=== PATIENT | female | born 1985 | race Caucasian/White ===

== ENCOUNTER 2016-12-26 10:48 | Emergency (ER) | payer MEDICAID ==
[2016-12-26 11:02] VITALS: BP 119/72
[2016-12-26] MEDS ORDERED: Acetaminophen/HYDROcodone 325-5 MG Tab PO ONE (11:43)
--- NOTE | 2016-12-26 11:43 | EDM.PDOC ---
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 Schilea states that last night and today the pain became much more severe despite use of ibuprofen and clonazepam. Onset: Today Onset Date: 12/26/16 Onset Time: 06:00 Duration: Hour(s): Location: Reports: Abdomen Quality: Reports: Ache, Throbbing Severity: Moderate Improves with: Reports: None Worsens with: Reports: None Lower Abdominal Pain Score (Numeric/FACES): 8 - Related Data Allergies Allergy/AdvReac Type Severity Reaction Status Date / Time tramadol Allergy Severe Seizure Verified 08/27/16 07:46 Home Meds: Home Meds Ibuprofen 800 mg PO ASDIRECTED PRN 08/22/16 [History] ClonazePAM [KlonoPIN] 0.5 mg PO BID PRN 12/26/16 [History] buPROPion [Wellbutrin] 75 mg PO TID 12/26/16 [History] Past Medical History - Past Health History Medical/Surgical History: Denies Medical/Surgical History Gastrointestinal History: Reports: GERD Genitourinary History: Reports: UTI, Recurrent 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: , Spontaneous Musculoskeletal History: Reports: Fracture Other Musculoskeletal History: Toe finger Neurological History: Reports: Seizure Psychiatric History: Reports: Anxiety, Depression, Other (See Below) 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 - Infectious Disease History Infectious Disease History: Reports: Chicken Pox - Past Surgical History GI Surgical History: Reports: Cholecystectomy, Matthew Fundoplication Neurological Surgical History: Reports: None Musculoskeletal Surgical History: Reports: None Dermatological Surgical History: Reports: None Social & Family History - Tobacco Use Smoking Status *Q: Light Tobacco Smoker Years of Tobacco use: 11 Packs/Tins Daily: 0.2 Used Tobacco, but Quit: No Second Hand Smoke Exposure: No - Caffeine Use Caffeine Use: Reports: Coffee - Alcohol Use Days Per Week of Alcohol Use: 2 Number of Drinks Per Day: 1 Total Drinks Per Week: 2 - Recreational Drug Use Recreational Drug Use: No Drug Use in Last 12 Months: No Recreational Drug Type: Reports: Benzodiazepines Recreational Drug Use Frequency: Not Used In Over 1 Year ED ROS GENERAL - Review of Systems Review Of Systems: See Below Constitutional: Denies: Fever, Chills, Malaise, Fatigue, Night Sweats HEENT: Reports: No Symptoms Respiratory: Denies: Shortness of Breath, Wheezing, Cough Cardiovascular: Denies: Chest Pain, Blood Pressure Problem, Dyspnea on Exertion , Edema, Palpitations, PND, Syncope Endocrine: Reports: No Symptoms GI/Abdominal: Reports: Abdominal Pain, Other (She complains of low pelvic pain with radiation to pubis and right and left lower quadrants to sacrum. ). Denies : Constipation, Diarrhea, Distension, Hematochezia, Nausea, Vomiting : Reports: Discharge, Irregular Menses. Denies: Dysuria, Flank Pain, Frequency, Hematuria, Incontinence, Urgency, Urinary Retention Musculoskeletal: Denies: Joint Pain, Joint Swelling, Muscle Pain, Muscle Stiffness Skin: Denies: Dryness, Bruising, Pruritis, Rash, Erythema, Wound, Lesions Neurological: Reports: No Symptoms Psychiatric: Reports: Other (History of anxiety with use of clonazepam) Hematologic/Lymphatic: Reports: No Symptoms Immunologic: Reports: No Symptoms ED EXAM, RENAL/ - Physical Exam Exam: See Below Exam Limited By: No Limitations General Appearance: Alert, WD/WN, No Apparent Distress Eye Exam: Bilateral Eye: Normal Inspection, PERRL Ears: Normal External Exam, Normal Canal, Hearing Grossly Normal, Normal TMs Nose: Normal Inspection, Normal Mucosa, No Blood Throat/Mouth: Normal Inspection, Normal Lips, Normal Teeth, Normal Gums, Normal Oropharynx, Normal Voice, No Airway Compromise Head: Atraumatic, Normocephalic Neck: Normal Inspection, Supple, Non-Tender, Full Range of Motion Respiratory/Chest: No Respiratory Distress, Lungs Clear, Normal Breath Sounds, No Accessory Muscle Use, Chest Non-Tender Cardiovascular: Normal Peripheral Pulses, Regular Rate, Rhythm, No Edema, No Gallop, No Murmur, No Rub GI/Abdominal: Normal Bowel Sounds, Soft, No Organomegaly, No Distention, No Mass , Pelvis Stable, Tender, Other (Tenderness noted to pubis). No: Guarding, Rigid , Rebound Back Exam: Normal Inspection, Full Range of Motion. No: CVA Tenderness (R), CVA Tenderness (L) Extremities: Normal Inspection, Normal Range of Motion, Non-Tender, No Pedal Edema, Normal Capillary Refill Neurological: Alert, Oriented, CN II-XII Intact, Normal Cognition, Normal Gait, No Motor/Sensory Deficits Psychiatric: Normal Affect, Normal Mood Skin Exam: Warm, Dry, Intact, Normal Color, No Rash Lymphatic: No Adenopathy Course - Vital Signs Last Recorded V/S: Last Vital Signs Temp 36.8 C 12/26/16 11:05 Pulse 94 12/26/16 11:05 Resp 16 12/26/16 11:05 BP 119/72 12/26/16 11:05 Pulse Ox 97 12/26/16 11:05 - Orders/Labs/Meds Orders: Active Orders 24 hr Category Date Time Status Transvaginal Non OB [US] Stat Exams 12/26/16 11:30 Taken Labs: Laboratory Tests 12/26/16 Range/Units 11:50 Urine Color Yellow Urine Appearance Slightly cloudy Urine pH 5.0 (4.5-8.0) Ur Specific [place] 1.020 (1.008-1.030) Urine Protein Negative (NEGATIVE) mg/dL Urine Glucose (UA) Normal (NEGATIVE) mg/dL Urine Ketones Negative (NEGATIVE) mg/dL Urine Occult Blood Moderate (NEGATIVE) Urine Nitrite Negative (NEGATIVE) Urine Bilirubin Negative (NEGATIVE) Urine Urobilinogen Normal (NORMAL) mg/dL Ur Leukocyte Esterase Negative (NEGATIVE) Urine RBC 10-20 H (0-5) Urine WBC 0-5 (0-5) Ur Epithelial Cells Few Amorphous Sediment Not seen Urine Bacteria Rare Urine Mucus Not seen Wet prep positive for clue cells and WBC, negative for yeast and trich. Meds: Medications Discontinued Medications Generic Name Dose Route Start Last Admin Trade Name Carlos Enrique PRN Reason Stop Dose Admin Hydrocodone Bitart/Acetaminophen 1 tab 12/26/16 11:43 12/26/16 11:48 [place] 325-5 Mg PO 12/26/16 11:44 1 tab ONETIME ONE Administration Patient allergy to tramadol, she refused toradol injection, states, "I doesn't work for me". Prescription history reviewed and [place] monitoring, only fills noted were for clonazepam as directed and tylenol #27 July 2016. - Radiology Interpretation Free Text/Narrative:: US verbal report, no changes since previous ultrasound, no cysts identified, endometrial strip 1.2 cm unchanged. Departure - Departure Time of Disposition: 12:54 Disposition: Home, Self-Care 01 Condition: good Clinical Impression: Bacterial vaginal infection - Discharge Information Referrals: Hoda Barillas CNM [Primary Care Provider] - Forms: ED Department Discharge Additional Instructions: You are suffering from bacterial vaginosis. You can take metronidazole 500mg tablet by mouth twice per day for seven days. Do not drink alcohol while taking this mediation You are also provided fluconazole 150mg tablet, take one tablet on day 3 to 5 of metronidazole use for sings and symptoms of yeast infection. Take second tablet after complete course of metronidazole for signs and symptoms of yeast infection. Follow up with your primary provider for continued pelvic pain/possible endometriosis and pain management. Do not take hydrocodone with clonazepam, you risk serious side effect of respiratory depression and/or overdose. Keep yourself hydrated. - My Orders Last 24 Hours: My Active Orders 12/26/16 11:30 Transvaginal Non OB [US] Stat - Assessment/Plan Last 24 Hours: My Active Orders 12/26/16 11:30 Transvaginal Non OB [US] Stat Assessment:: Bacterial vaginosis, low pelvic pain of unknown origin/possible endometriosis. Further evaluation pending with REPLENISHMENT BUYER. Same sex partner. Plan: Patient suffering from bacterial vaginosis. She can take metronidazole 500mg tablet by mouth twice per day for seven days. Education provided on not drinking alcohol while taking this mediation. She can also provided fluconazole 150mg tablet, take one tablet on day 3 to 5 of metronidazole use for sings and symptoms of yeast infection. Take second tablet after complete course of metronidazole for signs and symptoms of yeast infection. Follow up with primary provider for continued pelvic pain/possible endometriosis and pain management. She was provided education on limiting use of opiate medication for chronic pain. Patient verbalized understanding. She was advised not take hydrocodone with clonazepam, due to risk serious side effect of respiratory depression and/or overdose. Drink plenty of fluids to hydrated.
--- NOTE | 2016-12-27 08:52 | US ---
Pelvic ultrasound The uterus measures 8.7 x 4.3 x 4.8 cm. The endometrial stripe measures 12 mm. The ovaries and adnex al structures are unremarkable. There is symmetric blood flow. There is no free fluid. There is a 9 mm nabothian cyst. Impression: 1. Negative exam.
== END 2016-12-26 13:09 | disposition home or self-care (01) ==
LOC: JP.ED 10:48
DX: N76.0 Acute vaginitis (principal); F41.9 Anxiety disorder, unspecified; F32.9 Major depressive disorder, single episode, unspecified; F17.210 Nicotine dependence, cigarettes, uncomplicated; Z88.8 Allergy status to other drugs, medicaments and biological substances; Z90.49 Acquired absence of other specified parts of digestive tract; Z98.890 Other specified postprocedural states
CPT/HCPCS: 76830; 81001; 87210; 99284; A9270

== ENCOUNTER 2017-01-17 13:41 | Emergency (ER) | payer MEDICAID ==
[2017-01-17 14:07] VITALS: BP 142/90
[2017-01-17] MEDS ORDERED: HYDROmorphone 1 MG/ML Syringe IM ONE (14:47)
--- NOTE | 2017-01-17 14:50 | EDM.PDOC ---
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 Stated Complaint: pain in WOMEN'S AREA Time Seen by Provider: 01/17/17 14:30 Source of Information: Reports: Patient, RN Notes Reviewed History Limitations: Reports: No Limitations - History of Present Illness INITIAL COMMENTS - FREE TEXT/NARRATIVE: 31-year-old female presents emergency department day complaint of pelvic pain, she has a known history of endometriosis usually controls her endometriosis combination ibuprofen and clonazepam however the last couple days has progressively getting worse to the point with ibuprofen is not helping she does have an appointment in 2 days with CHEESE SUPERVISOR to discuss the possibility of hysterectomy, denies any fever, vomiting or chest pain does get short of breath and nauseated with increasing pain Uterine Pain Score (Numeric/FACES): 9 - Related Data Allergies Allergy/AdvReac Type Severity Reaction Status Date / Time tramadol Allergy Severe Seizure Verified 08/27/16 07:46 Home Meds: Home Meds Ibuprofen 800 mg PO ASDIRECTED PRN 08/22/16 [History] ClonazePAM [KlonoPIN] 0.5 mg PO BID PRN 12/26/16 [History] buPROPion [Wellbutrin] 75 mg PO TID 12/26/16 [History] Past Medical History Gastrointestinal History: Reports: GERD Genitourinary History: Reports: UTI, Recurrent 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: , 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 Musculoskeletal History: Reports: Fracture Other Musculoskeletal History: Toe finger Neurological History: Reports: Seizure Psychiatric History: Reports: Anxiety, Depression, Other (See Below) Other Psychiatric History: 2009 bpd - Infectious Disease History Infectious Disease History: Reports: Chicken Pox - Past Surgical History GI Surgical History: Reports: Cholecystectomy, Matthew Fundoplication Neurological Surgical History: Reports: None Musculoskeletal Surgical History: Reports: None Dermatological Surgical History: Reports: None Social & Family History - Tobacco Use Smoking Status *Q: Light Tobacco Smoker Years of Tobacco use: 11 Packs/Tins Daily: 0.2 Used Tobacco, but Quit: No Second Hand Smoke Exposure: No - Caffeine Use Caffeine Use: Reports: Coffee - Alcohol Use Days Per Week of Alcohol Use: 2 Number of Drinks Per Day: 1 Total Drinks Per Week: 2 - Recreational Drug Use Recreational Drug Use: No Drug Use in Last 12 Months: No Recreational Drug Type: Reports: Benzodiazepines Recreational Drug Use Frequency: Not Used In Over 1 Year ED ROS GENERAL - Review of Systems Review Of Systems: See Below Constitutional: Reports: No Symptoms HEENT: Reports: No Symptoms Respiratory: Reports: Shortness of Breath Cardiovascular: Reports: No Symptoms GI/Abdominal: Reports: Nausea. Denies: Vomiting : Reports: Pain (Pelvic area) Musculoskeletal: Reports: No Symptoms ED EXAM, RENAL/ - Physical Exam Exam: See Below Exam Limited By: No Limitations General Appearance: Alert, WD/WN, No Apparent Distress Respiratory/Chest: No Respiratory Distress, Lungs Clear, Normal Breath Sounds, No Accessory Muscle Use Cardiovascular: Regular Rate, Rhythm, No Murmur GI/Abdominal: Soft, No Organomegaly, No Distention, No Abnormal Bruit, No Mass, Pelvis Stable, Tender (Tender suprapubic area and left inguinal canal area) Course - Vital Signs Last Recorded V/S: Last Vital Signs Temp 98.4 F 01/17/17 14:06 Pulse 95 01/17/17 14:06 Resp 14 01/17/17 14:06 BP 142/90 H 01/17/17 14:06 Pulse Ox 98 01/17/17 14:06 - Orders/Labs/Meds Labs: Laboratory Tests 01/17/17 01/17/17 Range/Units 15:05 15:05 Urine Color Yellow Urine Appearance Cloudy Urine pH 5.0 (4.5-8.0) Ur Specific [place] 1.020 (1.008-1.030) Urine Protein Negative (NEGATIVE) mg/dL Urine Glucose (UA) Normal (NEGATIVE) mg/dL Urine Ketones Negative (NEGATIVE) mg/dL Urine Occult Blood Negative (NEGATIVE) Urine Nitrite Negative (NEGATIVE) Urine Bilirubin Negative (NEGATIVE) Urine Urobilinogen Normal (NORMAL) mg/dL Ur Leukocyte Esterase Negative (NEGATIVE) Urine RBC 0-5 (0-5) Urine WBC 0-5 (0-5) Ur Epithelial Cells Rare Amorphous Sediment Not seen Urine Bacteria Many Urine Mucus Not seen Urine HCG, Qual Negative Meds: Medications Discontinued Medications Generic Name Dose Route Start Last Admin Trade Name Freq PRN Reason Stop Dose Admin Hydromorphone HCl 1 mg 01/17/17 14:47 01/17/17 14:54 Dilaudid IM 01/17/17 14:48 1 mg ONETIME ONE Administration Departure - Departure Time of Disposition: 15:22 Disposition: Home, Self-Care 01 Condition: Good Clinical Impression: Pain in pelvis - Discharge Information Forms: ED Department Discharge Additional Instructions: Continue to use ibuprofen as needed for pain control use Percocet for breakthrough pain, please keep your appointment with CHEESE SUPERVISOR on Tuesday, call or return to the emergency department worsening of symptoms - Assessment/Plan Plan: Assessment Acuity = acute on chronic Site and laterality = pelvic pain Etiology = probably related to endometriosis Manifestations = none Location of injury = home Lab values = urinalysis unremarkable, beta-hCG negative Plan She had good relief with the Dilaudid provided in the ED, discharged home with 10 Percocet to use as needed she does have point with CHEESE SUPERVISOR on Tuesday Patient was in agreement with the plan all questions were answered, they were instructed to return to the emergency department or call for worsening symptoms. This note was dictated using [employer] voice recognition software please call with any questions.
== END 2017-01-17 15:45 | disposition home or self-care (01) ==
LOC: JP.ED 13:41
DX: R10.2 Pelvic and perineal pain (principal); F17.210 Nicotine dependence, cigarettes, uncomplicated; K21.9 Gastro-esophageal reflux disease without esophagitis; Z90.49 Acquired absence of other specified parts of digestive tract; Z88.5 Allergy status to narcotic agent
CPT/HCPCS: 81001; 81025; 96372; 99284; J1170

== ENCOUNTER 2017-01-21 16:43 | Emergency (ER) | payer MEDICAID ==
[2017-01-21 17:58] VITALS: BP 149/95
[2017-01-21] MEDS ORDERED: Ketorolac 60 MG/2 ML SDV IM ONE (18:19)
[2017-01-21] MEDS ORDERED: Acetaminophen/oxyCODONE 325-5 MG Tab PO ONE (18:20)
--- NOTE | 2017-01-21 19:22 | EDM.PDOC ---
ED HPI GENERAL MEDICAL PROBLEM - General Chief Complaint: Abdominal Pain Stated Complaint: LOWER ABD PAIN Time Seen by Provider: 01/21/17 19:16 Source of Information: Reports: Patient History Limitations: Reports: No Limitations - History of Present Illness INITIAL COMMENTS - FREE TEXT/NARRATIVE: pt arrived with lower abdomanal pain. She has been having pain and has been followed by obgyn. It is the opinion of Dr Morrissey that she needs a hysterectomy for endometriosis. The pt questions his opinion howerver she stated that we could do this on a Emergency basis if desired. Onset: Gradual Duration: Other (pt lifted her baby and the pain became very severe. ) Location: Reports: Abdomen, Pelvis Quality: Reports: Sharp, Stabbing Associated Symptoms: Reports: No Other Symptoms abdomen Pain Score (Numeric/FACES): 10 - Related Data Allergies Allergy/AdvReac Type Severity Reaction Status Date / Time tramadol Allergy Severe Seizure Verified 01/21/17 18:51 Home Meds: Home Meds Ibuprofen 800 mg PO ASDIRECTED PRN 08/22/16 [History] ClonazePAM [KlonoPIN] 0.5 mg PO BID PRN 12/26/16 [History] buPROPion [Wellbutrin] 75 mg PO BID 12/26/16 [History] Omeprazole 40 mg PO ASDIRECTED PRN 01/21/17 [History] Past Medical History - Past Health History Medical/Surgical History: Denies Medical/Surgical History HEENT History: Reports: None Cardiovascular History: Reports: None Respiratory History: Reports: None Gastrointestinal History: Reports: GERD Genitourinary History: Reports: UTI, Recurrent 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: , 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 Musculoskeletal History: Reports: Fracture Other Musculoskeletal History: Toe finger Neurological History: Reports: Seizure Psychiatric History: Reports: Anxiety, Depression, Other (See Below) 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 Endocrine/Metabolic History: Reports: None Hematologic History: Reports: None Immunologic History: Reports: None Oncologic (Cancer) History: Reports: None Dermatologic History: Reports: None - Infectious Disease History Infectious Disease History: Reports: Chicken Pox - Past Surgical History Head Surgeries/Procedures: Reports: None HEENT Surgical History: Reports: Myringotomy w Tube(s) Respiratory Surgical History: Reports: None GI Surgical History: Reports: Cholecystectomy, Matthew Fundoplication Female Surgical History: Reports: None Endocrine Surgical History: Reports: None Neurological Surgical History: Reports: None Musculoskeletal Surgical History: Reports: None Oncologic Surgical History: Reports: None Dermatological Surgical History: Reports: None Social & Family History - Tobacco Use Smoking Status *Q: Former Smoker Years of Tobacco use: 11 Packs/Tins Daily: 0.2 Used Tobacco, but Quit: Yes Month Tobacco Last Used: November 2016 Second Hand Smoke Exposure: No - Caffeine Use Caffeine Use: Reports: Coffee, Soda, Tea - Alcohol Use Days Per Week of Alcohol Use: 2 Number of Drinks Per Day: 1 Total Drinks Per Week: 2 - Recreational Drug Use Recreational Drug Use: No Drug Use in Last 12 Months: No Recreational Drug Type: Reports: Benzodiazepines Recreational Drug Use Frequency: Not Used In Over 1 Year ED ROS GENERAL - Review of Systems Review Of Systems: See Below Constitutional: Reports: No Symptoms HEENT: Reports: No Symptoms Respiratory: Reports: No Symptoms Cardiovascular: Reports: No Symptoms Endocrine: Reports: No Symptoms GI/Abdominal: Reports: Other ( Pt has sharp stabbing pain on both sides of the pelvis and she states it got worse when she lifted her baby. ) : Reports: No Symptoms ED EXAM, GI/ABD - Physical Exam Exam: See Below Text/Narrative:: Pt is here with severe pain in the pelvic area bilaterally. She states she has been told she has endometrosis . She was advised to have a hysterectomy. Exam Limited By: No Limitations General Appearance: Alert, Anxious, Mild Distress Ears: Normal TMs Nose: Normal Inspection Throat/Mouth: Normal Inspection Head: Atraumatic Neck: Normal Inspection Respiratory/Chest: No Respiratory Distress Cardiovascular: Regular Rate, Rhythm GI/Abdominal: Tenderness (Female) Exam: Deferred, Other (pt has had a through evaluation in the past. ) Rectal (Female) Exam: Deferred Back Exam: Normal Inspection Extremities: Normal Inspection Neurological: Alert, Oriented, Normal Cognition Psychiatric: Tearful Course - Vital Signs Last Recorded V/S: Last Vital Signs Temp 36.3 C 01/21/17 17:57 Pulse 82 01/21/17 17:57 Resp 16 01/21/17 17:57 BP 149/95 H 01/21/17 17:57 Pulse Ox 98 01/21/17 17:57 - Orders/Labs/Meds Orders: Active Orders 24 hr Category Date Time Status CULTURE URINE [RM] Stat Lab 01/21/17 19:15 Uncollected Labs: Laboratory Tests 01/21/17 01/21/17 01/21/17 Range/Units 18:21 18:28 18:28 WBC 10.3 (4.5-11.0) K/uL RBC 4.59 (3.30-5.50) M/uL Hgb 12.8 (12.0-15.0) g/dL Hct 39.2 (36.0-48.0) % MCV 85 (80-98) fL MCH 28 (27-31) pg MCHC 33 (32-36) % Plt Count 333 (150-400) K/uL Neut % (Auto) 56 (36-66) % Lymph % (Auto) 31 (24-44) % Piatt % (Auto) 8 H (2-6) % Eos % (Auto) 4 (2-4) % Baso % (Auto) 2 H (0-1) % Sodium 141 (140-148) mmol/L Potassium 3.9 (3.6-5.2) mmol/L Chloride 103 (100-108) mmol/L Carbon Dioxide 29 (21-32) mmol/L Anion Gap 9.1 (5.0-14.0) mmol/L BUN 17 (7-18) mg/dL Creatinine 0.9 (0.6-1.0) mg/dL Est Cr Clr Drug Dosing 71.63 mL/min Estimated GFR (MDRD) > 60 (>60) Glucose 88 (74-106) mg/dL Calcium 9.0 (8.5-10.1) mg/dL Total Bilirubin 0.1 L (0.2-1.0) mg/dL AST 18 (15-37) U/L ALT 28 (12-78) U/L Alkaline Phosphatase 108 (46-116) U/L C-Reactive Protein 0.32 H (0.0-0.3) mg/dL Total Protein 7.4 (6.4-8.2) g/dL Albumin 3.5 (3.4-5.0) g/dL Globulin 3.9 H (2.3-3.5) g/dL Albumin/Globulin Ratio 0.9 L (1.2-2.2) Urine Color Urine Appearance Urine pH (4.5-8.0) Ur Specific [place] (1.008-1.030) Urine Protein (NEGATIVE) mg/dL Urine Glucose (UA) (NEGATIVE) mg/dL Urine Ketones (NEGATIVE) mg/dL Urine Occult Blood (NEGATIVE) Urine Nitrite (NEGATIVE) Urine Bilirubin (NEGATIVE) Urine Urobilinogen (NORMAL) mg/dL Ur Leukocyte Esterase (NEGATIVE) Urine RBC (0-5) Urine WBC (0-5) Ur Epithelial Cells Amorphous Sediment Urine Bacteria Urine Mucus 01/21/17 Range/Units 18:37 WBC (4.5-11.0) K/uL RBC (3.30-5.50) M/uL Hgb (12.0-15.0) g/dL Hct (36.0-48.0) % MCV (80-98) fL MCH (27-31) pg MCHC (32-36) % Plt Count (150-400) K/uL Neut % (Auto) (36-66) % Lymph % (Auto) (24-44) % Piatt % (Auto) (2-6) % Eos % (Auto) (2-4) % Baso % (Auto) (0-1) % Sodium (140-148) mmol/L Potassium (3.6-5.2) mmol/L Chloride (100-108) mmol/L Carbon Dioxide (21-32) mmol/L Anion Gap (5.0-14.0) mmol/L BUN (7-18) mg/dL Creatinine (0.6-1.0) mg/dL Est Cr Clr Drug Dosing mL/min Estimated GFR (MDRD) (>60) Glucose (74-106) mg/dL Calcium (8.5-10.1) mg/dL Total Bilirubin (0.2-1.0) mg/dL AST (15-37) U/L ALT (12-78) U/L Alkaline Phosphatase (46-116) U/L C-Reactive Protein (0.0-0.3) mg/dL Total Protein (6.4-8.2) g/dL Albumin (3.4-5.0) g/dL Globulin (2.3-3.5) g/dL Albumin/Globulin Ratio (1.2-2.2) Urine Color Yellow Urine Appearance Clear Urine pH 6.0 (4.5-8.0) Ur Specific [place] 1.020 (1.008-1.030) Urine Protein Negative (NEGATIVE) mg/dL Urine Glucose (UA) Normal (NEGATIVE) mg/dL Urine Ketones Negative (NEGATIVE) mg/dL Urine Occult Blood Moderate (NEGATIVE) Urine Nitrite Negative (NEGATIVE) Urine Bilirubin Negative (NEGATIVE) Urine Urobilinogen Normal (NORMAL) mg/dL Ur Leukocyte Esterase Moderate (NEGATIVE) Urine RBC 0-5 (0-5) Urine WBC 5-10 H (0-5) Ur Epithelial Cells Moderate Amorphous Sediment Few Urine Bacteria Moderate Urine Mucus Few Meds: Medications Discontinued Medications Generic Name Dose Route Start Last Admin Trade Name Freq PRN Reason Stop Dose Admin Ketorolac Tromethamine 60 mg 01/21/17 18:19 01/21/17 18:55 Toradol IM 01/21/17 18:20 60 mg ONETIME ONE Administration Oxycodone/Acetaminophen 1 tab 01/21/17 18:20 01/21/17 18:54 Percocet 325-5 Mg PO 01/21/17 18:21 1 tab ONETIME ONE Administration - Re-Assessments/Exams Free Text/Narrative Re-Assessment/Exam: 01/21/17 19:24 pt was found to have normal lab work except her urine could be infected. Departure - Departure Time of Disposition: 19:26 Disposition: Home, Self-Care 01 Condition: Fair Clinical Impression: Endometriosis, UTI (urinary tract infection) - Discharge Information Forms: ED Department Discharge Care Plan Goals: appt with Dr Felicia alexis when he is in [place], cipro 500mg bid for 5 days, norco 5/325 q6h prn for pain-- - My Orders Last 24 Hours: My Active Orders 01/21/17 19:15 CULTURE URINE [RM] Stat - Assessment/Plan Last 24 Hours: My Active Orders 01/21/17 19:15 CULTURE URINE [RM] Stat
== END 2017-01-21 20:15 | disposition home or self-care (01) ==
LOC: JP.ED 16:43
DX: N39.0 Urinary tract infection, site not specified (principal); N80.9 Endometriosis, unspecified; K21.9 Gastro-esophageal reflux disease without esophagitis; F41.9 Anxiety disorder, unspecified; F32.9 Major depressive disorder, single episode, unspecified; Z96.22 Myringotomy tube(s) status; Z90.49 Acquired absence of other specified parts of digestive tract; Z98.890 Other specified postprocedural states; Z87.891 Personal history of nicotine dependence; Z88.5 Allergy status to narcotic agent
CPT/HCPCS: 36415; 80053; 81001; 85025; 86140; 87086; 96372; 99284; A9270; J1885

== ENCOUNTER 2017-03-20 16:39 | Emergency (ER) | payer MEDICAID ==
[2017-03-20 17:15] VITALS: BP 121/74
--- NOTE | 2017-03-20 18:28 | EDM.PDOC ---
ED HPI GENERAL MEDICAL PROBLEM - General Chief Complaint: Abdominal Pain Stated Complaint: HAD HYSTERECTOMY ON 03/10/17 LOTS OF PAIN Time Seen by Provider: 03/20/17 17:30 Source of Information: Reports: Patient History Limitations: Reports: No Limitations - History of Present Illness INITIAL COMMENTS - FREE TEXT/NARRATIVE: This is a 31-year-old female who had a vaginal hysterectomy, laparoscopic assisted 10 days ago who over the last 3 days as developed increasing pain and moderate amount of dark vaginal discharge. No fevers or chills. No nausea or vomiting. Today she was pushing her child's stroller when she felt a tearing sensation in her lower abdomen. She actually looks fairly comfortable. Onset: Gradual (Over the past 3 days, worse today) Location: Reports: Abdomen Severity: Moderate Worsens with: Reports: Other (Worsens with walking), Movement Associated Symptoms: Reports: Other (She has some moderate diarrhea). Denies: Fever/Chills, Nausea/Vomiting Abdomen Pain Score (Numeric/FACES): 9 - Related Data Allergies Allergy/AdvReac Type Severity Reaction Status Date / Time tramadol Allergy Severe Seizure Verified 01/21/17 18:51 Home Meds: Home Meds Ibuprofen 800 mg PO ASDIRECTED PRN 08/22/16 [History] ClonazePAM [KlonoPIN] 0.5 mg PO BID PRN 12/26/16 [History] buPROPion [Wellbutrin] 75 mg PO BID 12/26/16 [History] Omeprazole 40 mg PO ASDIRECTED PRN 01/21/17 [History] Past Medical History - Past Health History Medical/Surgical History: Denies Medical/Surgical History HEENT History: Reports: None Cardiovascular History: Reports: None Respiratory History: Reports: None Gastrointestinal History: Reports: GERD Genitourinary History: Reports: UTI, Recurrent 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: , 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 Musculoskeletal History: Reports: Fracture Other Musculoskeletal History: Toe finger Neurological History: Reports: Seizure Psychiatric History: Reports: Anxiety, Depression, Other (See Below) 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 Endocrine/Metabolic History: Reports: None Hematologic History: Reports: None Immunologic History: Reports: None Oncologic (Cancer) History: Reports: None Dermatologic History: Reports: None - Infectious Disease History Infectious Disease History: Reports: Chicken Pox - Past Surgical History Head Surgeries/Procedures: Reports: None HEENT Surgical History: Reports: Myringotomy w Tube(s) Respiratory Surgical History: Reports: None GI Surgical History: Reports: Cholecystectomy, Matthew Fundoplication Female Surgical History: Reports: None Endocrine Surgical History: Reports: None Neurological Surgical History: Reports: None Musculoskeletal Surgical History: Reports: None Oncologic Surgical History: Reports: None Dermatological Surgical History: Reports: None Social & Family History - Tobacco Use Smoking Status *Q: Former Smoker Years of Tobacco use: 11 Packs/Tins Daily: 0.2 Used Tobacco, but Quit: Yes Month Tobacco Last Used: November 2016 Second Hand Smoke Exposure: No - Caffeine Use Caffeine Use: Reports: Coffee, Soda, Tea - Alcohol Use Days Per Week of Alcohol Use: 2 Number of Drinks Per Day: 1 Total Drinks Per Week: 2 - Recreational Drug Use Recreational Drug Use: No Drug Use in Last 12 Months: No Recreational Drug Type: Reports: Benzodiazepines Recreational Drug Use Frequency: Not Used In Over 1 Year ED ROS GENERAL - Review of Systems Review Of Systems: See Below Constitutional: Denies: Fever, Chills, Malaise HEENT: Reports: No Symptoms Respiratory: Denies: Shortness of Breath Cardiovascular: Denies: Chest Pain GI/Abdominal: Reports: Abdominal Pain, Diarrhea. Denies: Nausea, Vomiting : Reports: No Symptoms Neurological: Reports: No Symptoms ED EXAM, GI/ABD - Physical Exam Exam: See Below Exam Limited By: No Limitations General Appearance: Alert, No Apparent Distress Respiratory/Chest: No Respiratory Distress, Lungs Clear Cardiovascular: Regular Rate, Rhythm GI/Abdominal Exam: Normal Bowel Sounds, Soft, Tender (Tender to palpation across the lower abdomen, mild guarding. Incisions look excellent.) (Female) Exam: Other (Vaginal exam appears normal externally, digital exam has tenderness but no mass. Speculum exam reveals no discharge and no separation of the surgical incisions. No evidence of bleeding) Course - Vital Signs Last Recorded V/S: Last Vital Signs Temp 98.0 F 03/20/17 17:14 Pulse 93 03/20/17 17:14 Resp 16 03/20/17 17:14 BP 121/74 03/20/17 17:14 Pulse Ox 100 03/20/17 17:14 - Orders/Labs/Meds Labs: Laboratory Tests 03/20/17 03/20/17 Range/Units 17:39 17:39 WBC 11.0 (4.5-11.0) K/uL RBC 4.22 (3.30-5.50) M/uL Hgb 11.4 L (12.0-15.0) g/dL Hct 35.9 L (36.0-48.0) % MCV 85 (80-98) fL MCH 27 (27-31) pg MCHC 32 (32-36) % Plt Count 317 (150-400) K/uL Neut % (Auto) 55 (36-66) % Lymph % (Auto) 30 (24-44) % [place] % (Auto) 10 H (2-6) % Eos % (Auto) 3 (2-4) % Baso % (Auto) 2 H (0-1) % Sodium 140 (140-148) mmol/L Potassium 3.7 (3.6-5.2) mmol/L Chloride 106 (100-108) mmol/L Carbon Dioxide 26 (21-32) mmol/L Anion Gap 8.4 (5.0-14.0) mmol/L BUN 17 (7-18) mg/dL Creatinine 1.0 (0.6-1.0) mg/dL Est Cr Clr Drug Dosing 62.74 mL/min Estimated GFR (MDRD) > 60 (>60) Glucose 80 (74-106) mg/dL Calcium 8.8 (8.5-10.1) mg/dL - Re-Assessments/Exams Free Text/Narrative Re-Assessment/Exam: 03/20/17 18:27 CBC and CMP were obtained which were normal. I did discuss her condition with her OB surgeon and she'll be rechecked on Tuesday. She'll return tomorrow if she develops fever or more pain. She'll continue on the pain medication as prescribed. She was given 10 additional Vicodin for pain control until Tuesday. Departure - Departure Time of Disposition: 18:37 Disposition: Home, Self-Care 01 Condition: Good Clinical Impression: Abdominal pain Qualifiers: Abdominal location: lower abdomen, unspecified Qualified Code(s): R10.30 - Lower abdominal pain, unspecified - Discharge Information Instructions: Abdominal Pain, Adult, [id number] Referrals: Hoda Barillas CNM [Primary Care Provider] - Forms: ED Department Discharge Care Plan Goals: Continue pain medication as prescribed. Continue activity as tolerated and return for recheck tomorrow if you develop a fever or more pain or discharge. Otherwise call the clinic to recheck with OB on Tuesday here in [place].
== END 2017-03-20 18:40 | disposition home or self-care (01) ==
LOC: JP.ED 16:39
DX: R10.30 Lower abdominal pain, unspecified (principal); K21.9 Gastro-esophageal reflux disease without esophagitis; Z87.891 Personal history of nicotine dependence; Z87.440 Personal history of urinary (tract) infections; Z96.22 Myringotomy tube(s) status; Z90.49 Acquired absence of other specified parts of digestive tract; Z88.5 Allergy status to narcotic agent
CPT/HCPCS: 36415; 80048; 85025; 99284

== ENCOUNTER 2017-04-02 14:54 | Emergency (ER) | payer MEDICAID ==
[2017-04-02] MEDS ORDERED: Ketorolac 30 MG/ML SDV IVPUSH ONE (17:45)
[2017-04-02] MEDS ORDERED: Sodium Chloride 0.9% 1,000 ML IV SCH (17:45)
--- NOTE | 2017-04-02 17:45 | EDM.PDOC ---
<Lynnette Shaffer - Last Filed: 04/02/17 17:59> ED HPI GENERAL MEDICAL PROBLEM - General Chief Complaint: Back Pain or Injury Stated Complaint: PAIN AND NAUSA SURGERY 03/10/17 Time Seen by Provider: 04/02/17 17:42 Source of Information: Reports: Patient, Family History Limitations: Reports: No Limitations - History of Present Illness INITIAL COMMENTS - FREE TEXT/NARRATIVE: pt had a hysterectomy mid february. She now has burning pain in the lower abdoman. She has not had burning when she passes her urine. She has pain in the tailbone area. Onset: Gradual, Other Duration: Day(s):, Getting Worse Location: Reports: Abdomen Associated Symptoms: Reports: No Other Symptoms - Related Data Allergies Allergy/AdvReac Type Severity Reaction Status Date / Time tramadol Allergy Severe Seizure Verified 01/21/17 18:51 Home Meds: Home Meds Ibuprofen 800 mg PO ASDIRECTED PRN 08/22/16 [History] ClonazePAM [KlonoPIN] 0.5 mg PO BID PRN 12/26/16 [History] buPROPion [Wellbutrin] 75 mg PO BID 12/26/16 [History] Omeprazole 40 mg PO ASDIRECTED PRN 01/21/17 [History] Past Medical History - Past Health History Medical/Surgical History: Denies Medical/Surgical History HEENT History: Reports: None Cardiovascular History: Reports: None Respiratory History: Reports: None Gastrointestinal History: Reports: GERD Genitourinary History: Reports: UTI, Recurrent 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: , 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 Musculoskeletal History: Reports: Fracture Other Musculoskeletal History: Toe finger Neurological History: Reports: Seizure Psychiatric History: Reports: Anxiety, Depression, Other (See Below) 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 Endocrine/Metabolic History: Reports: None Hematologic History: Reports: None Immunologic History: Reports: None Oncologic (Cancer) History: Reports: None Dermatologic History: Reports: None - Infectious Disease History Infectious Disease History: Reports: Chicken Pox - Past Surgical History Head Surgeries/Procedures: Reports: None HEENT Surgical History: Reports: Myringotomy w Tube(s) Respiratory Surgical History: Reports: None GI Surgical History: Reports: Cholecystectomy, Matthew Fundoplication Female Surgical History: Reports: None, Hysterectomy Endocrine Surgical History: Reports: None Neurological Surgical History: Reports: None Musculoskeletal Surgical History: Reports: None Oncologic Surgical History: Reports: None Dermatological Surgical History: Reports: None Social & Family History - Tobacco Use Smoking Status *Q: Current Every Day Smoker Years of Tobacco use: 15 Packs/Tins Daily: 0.1 Used Tobacco, but Quit: Yes Month Tobacco Last Used: November 2016 Second Hand Smoke Exposure: No - Caffeine Use Caffeine Use: Reports: Coffee, Soda, Tea - Alcohol Use Days Per Week of Alcohol Use: 2 Number of Drinks Per Day: 1 Total Drinks Per Week: 2 - Recreational Drug Use Recreational Drug Use: No Drug Use in Last 12 Months: No Recreational Drug Type: Reports: Benzodiazepines Recreational Drug Use Frequency: Not Used In Over 1 Year ED ROS GENERAL - Review of Systems Review Of Systems: See Below Constitutional: Reports: No Symptoms HEENT: Reports: No Symptoms Respiratory: Reports: No Symptoms Cardiovascular: Reports: No Symptoms Endocrine: Reports: No Symptoms GI/Abdominal: Reports: Abdominal Pain : Reports: Dysuria Musculoskeletal: Reports: No Symptoms Skin: Reports: No Symptoms ED EXAM,LOWER BACK PAIN/INJURY - Physical Exam Exam: See Below Text/Narrative:: pt had a hysterectomy mid feb and she is now having burning pain in the low pelvic area. Exam Limited By: No Limitations General Appearance: Alert, Anxious Ears: Normal TMs Nose: Normal Inspection Throat/Mouth: Normal Inspection Head: Atraumatic Neck: Normal Inspection Respiratory/Chest: No Respiratory Distress Cardiovascular: Regular Rate, Rhythm GI/Abdominal: Tender, Other (pt is not distended. She is tender in the very low abdomanal area. ) (Female) Exam: Deferred Rectal (Female) Exam: Deferred Back Exam: Normal Inspection Extremities: Normal Inspection Neurological: Alert Psychiatric: Normal Affect Course - Vital Signs Last Recorded V/S: Last Vital Signs Temp 36.8 C 04/02/17 17:28 Pulse 77 04/02/17 20:17 Resp 16 04/02/17 20:17 BP 126/76 04/02/17 20:17 Pulse Ox 96 04/02/17 20:17 - Orders/Labs/Meds Orders: Active Orders 24 hr Category Date Time Status Pelvis Non OB Comp [US] Stat Exams 04/02/17 18:01 Taken Sodium Chloride 0.9% [Normal Saline] 1,000 ml Med 04/02/17 17:45 Active IV ASDIRECTED Medication Orders Sodium Chloride (Normal Saline) 1,000 mls @ 500 mls/hr IV ASDIRECTED TAYLOR Last Admin: 04/02/17 18:41 Dose: 500 mls/hr Labs: Laboratory Tests 04/02/17 04/02/17 04/02/17 Range/Units 17:52 17:52 17:52 WBC 10.2 (4.5-11.0) K/uL RBC 4.63 (3.30-5.50) M/uL Hgb 12.9 (12.0-15.0) g/dL Hct 39.0 (36.0-48.0) % MCV 84 (80-98) fL MCH 28 (27-31) pg MCHC 33 (32-36) % Plt Count 335 (150-400) K/uL Neut % (Auto) 52 (36-66) % Lymph % (Auto) 34 (24-44) % [place] % (Auto) 9 H (2-6) % Eos % (Auto) 4 (2-4) % Baso % (Auto) 1 (0-1) % Sodium 140 (140-148) mmol/L Potassium 3.8 (3.6-5.2) mmol/L Chloride 105 (100-108) mmol/L Carbon Dioxide 28 (21-32) mmol/L Anion Gap 7.1 (5.0-14.0) mmol/L BUN 12 (7-18) mg/dL Creatinine 1.2 H (0.6-1.0) mg/dL Est Cr Clr Drug Dosing 52.49 mL/min Estimated GFR (MDRD) 52 L (>60) Glucose 100 (74-106) mg/dL Calcium 8.7 (8.5-10.1) mg/dL Total Bilirubin 0.2 D (0.2-1.0) mg/dL AST 16 (15-37) U/L ALT 25 (12-78) U/L Alkaline Phosphatase 108 (46-116) U/L C-Reactive Protein 0.75 H (0.0-0.3) mg/dL Total Protein 7.9 (6.4-8.2) g/dL Albumin 3.5 (3.4-5.0) g/dL Globulin 4.4 H (2.3-3.5) g/dL Albumin/Globulin Ratio 0.8 L (1.2-2.2) Urine Color Urine Appearance Urine pH (4.5-8.0) Ur Specific [place] (1.008-1.030) Urine Protein (NEGATIVE) mg/dL Urine Glucose (UA) (NEGATIVE) mg/dL Urine Ketones (NEGATIVE) mg/dL Urine Occult Blood (NEGATIVE) Urine Nitrite (NEGATIVE) Urine Bilirubin (NEGATIVE) Urine Urobilinogen (NORMAL) mg/dL Ur Leukocyte Esterase (NEGATIVE) Urine RBC (0-5) Urine WBC (0-5) Ur Epithelial Cells Amorphous Sediment Urine Bacteria Urine Mucus 04/02/17 Range/Units 18:21 WBC (4.5-11.0) K/uL RBC (3.30-5.50) M/uL Hgb (12.0-15.0) g/dL Hct (36.0-48.0) % MCV (80-98) fL MCH (27-31) pg MCHC (32-36) % Plt Count (150-400) K/uL Neut % (Auto) (36-66) % Lymph % (Auto) (24-44) % [place] % (Auto) (2-6) % Eos % (Auto) (2-4) % Baso % (Auto) (0-1) % Sodium (140-148) mmol/L Potassium (3.6-5.2) mmol/L Chloride (100-108) mmol/L Carbon Dioxide (21-32) mmol/L Anion Gap (5.0-14.0) mmol/L BUN (7-18) mg/dL Creatinine (0.6-1.0) mg/dL Est Cr Clr Drug Dosing mL/min Estimated GFR (MDRD) (>60) Glucose (74-106) mg/dL Calcium (8.5-10.1) mg/dL Total Bilirubin (0.2-1.0) mg/dL AST (15-37) U/L ALT (12-78) U/L Alkaline Phosphatase (46-116) U/L C-Reactive Protein (0.0-0.3) mg/dL Total Protein (6.4-8.2) g/dL Albumin (3.4-5.0) g/dL Globulin (2.3-3.5) g/dL Albumin/Globulin Ratio (1.2-2.2) Urine Color Yellow Urine Appearance Clear Urine pH 6.0 (4.5-8.0) Ur Specific [place] 1.015 (1.008-1.030) Urine Protein Negative (NEGATIVE) mg/dL Urine Glucose (UA) Normal (NEGATIVE) mg/dL Urine Ketones Negative (NEGATIVE) mg/dL Urine Occult Blood Negative (NEGATIVE) Urine Nitrite Negative (NEGATIVE) Urine Bilirubin Negative (NEGATIVE) Urine Urobilinogen Normal (NORMAL) mg/dL Ur Leukocyte Esterase Negative (NEGATIVE) Urine RBC 0-5 (0-5) Urine WBC 0-5 (0-5) Ur Epithelial Cells Rare Amorphous Sediment Few Urine Bacteria Not seen Urine Mucus Few Meds: Medications Generic Name Dose Route Start Last Admin Trade Name Freq PRN Reason Stop Dose Admin Sodium Chloride 1,000 mls @ 500 mls/hr 04/02/17 17:45 04/02/17 18:41 Normal Saline IV 500 mls/hr ASDIRECTED TAYLOR Administration Discontinued Medications Generic Name Dose Route Start Last Admin Trade Name Freq PRN Reason Stop Dose Admin Hydromorphone HCl 0.5 mg 04/02/17 19:16 04/02/17 19:51 Dilaudid IVPUSH 04/02/17 19:17 0.5 mg ONETIME ONE Administration Ketorolac Tromethamine 30 mg 04/02/17 17:45 04/02/17 18:40 Toradol IVPUSH 04/02/17 17:46 30 mg ONETIME ONE Administration Departure - Departure Disposition: Home, Self-Care 01 Clinical Impression: Pelvic pain - Discharge Information Referrals: Augustus Perez MD [Primary Care Provider] - Forms: ED Department Discharge Additional Instructions: Please follow-up with her primary care doctor so that further investigation can be done regarding her pain I'm sorry we were not able to give you a clear explanation for your pain at this time based on the studies that we have done. <Jet Vazquez - Last Filed: 04/02/17 20:31> Course - Vital Signs Text/Narrative:: The ultrasound which was transabdominal was basically unremarkable. She has flow to both ovaries and surgically absent uterus. No explanation of her pain was found. At this point she just would like to go home and follow-up with her primary care doctor. I will provide her with 12 [place] to help cover her pain until she can be seen. Departure - Departure Time of Disposition: 20:29 Condition: Good
[2017-04-02] MEDS ORDERED: HYDROmorphone 1 MG/ML Syringe IVPUSH ONE (19:16)
[2017-04-02 20:18] VITALS: BP 126/76
== END 2017-04-02 20:53 | disposition home or self-care (01) ==
LOC: JP.ED 14:54
DX: R10.2 Pelvic and perineal pain (principal); F17.210 Nicotine dependence, cigarettes, uncomplicated; K21.9 Gastro-esophageal reflux disease without esophagitis; F41.9 Anxiety disorder, unspecified; F39 Unspecified mood [affective] disorder; Z96.22 Myringotomy tube(s) status; Z87.440 Personal history of urinary (tract) infections; Z79.899 Other long term (current) drug therapy; Z88.5 Allergy status to narcotic agent
CPT/HCPCS: 36415; 76856; 80053; 81001; 85025; 86140; 96374; 96375; 99284; J1170; J1885; J7040

== ENCOUNTER 2017-05-25 13:58 | Emergency (ER) | payer MEDICAID ==
[2017-05-25 14:05] VITALS: BP 115/86
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
== END 2017-05-25 14:59 | disposition home or self-care (01) ==
LOC: JP.ED 13:58
DX: F32.9 Major depressive disorder, single episode, unspecified (principal); F41.9 Anxiety disorder, unspecified; K21.9 Gastro-esophageal reflux disease without esophagitis; Z87.891 Personal history of nicotine dependence; Z79.899 Other long term (current) drug therapy; Z88.5 Allergy status to narcotic agent
CPT/HCPCS: 99284

== ENCOUNTER 2017-06-15 17:19 | Emergency (ER) | payer MEDICAID ==
[2017-06-15] MEDS ORDERED: Ketorolac 60 MG/2 ML SDV IM ONE (18:31)
--- NOTE | 2017-06-15 18:38 | EDM.PDOC ---
ED HPI GENERAL MEDICAL PROBLEM - General Chief Complaint: Abdominal Pain Stated Complaint: PAIN IN STOMACH AREA AND LEFT SIDE ON BACK Time Seen by Provider: 06/15/17 18:15 Source of Information: Reports: Patient, Old Records History Limitations: Reports: Other (not a good historian) - History of Present Illness INITIAL COMMENTS - FREE TEXT/NARRATIVE: 31 yo female presents with low abdominal pain with radiation to the L flank that has been progressive for about a week. Had a hysterectomy recently for these same sx's and it did not give her lasting relief. No change in bowel fxn. Has urinary frequency without dysuria or hematuria. No fever. Has both ovaries yet. Has a primary care provider that she has an appt with next week, but felt she could not wait that long. Lifting her son increases the pain slightly, but coughing does not change it. Has some vaginal discharge. Is taking ibuprofen and acetaminophen without relief. Her partner has no sx's. Is to another woman. Onset: Gradual Onset Date: 05/15/17 Duration: Week(s):, Chronic, Getting Worse Location: Reports: Abdomen (low) Quality: Reports: Dull Severity: Moderate Improves with: Reports: None Worsens with: Reports: None Context: Reports: Other (chronic low abdominal pain.) Associated Symptoms: Denies: Cough, Fever/Chills, Loss of Appetite, Nausea/ Vomiting, Shortness of Breath Treatments YEAST DISTILLER: Reports: Acetaminophen, NSAIDS Lower Abdomen Pain Score (Numeric/FACES): 8 - Related Data Allergies Allergy/AdvReac Type Severity Reaction Status Date / Time tramadol Allergy Severe Seizure Verified 05/25/17 14:06 Home Meds: Home Meds Omeprazole 40 mg PO ASDIRECTED 01/21/17 [History] buPROPion HCl [Wellbutrin SR] 150 mg PO DAILY #7 tablet.er 05/25/17 [Rx] clonazePAM [Clonazepam] 0.5 mg PO QID PRN 7 Days #20 tab.rapdis 05/25/17 [Rx] Dextroamphetamine/Amphetamine [Adderall 20 mg Tablet] 20 mg PO DAILY PRN [History] Ibuprofen [Motrin] 200 mg PO Q6H PRN 06/15/17 [History] Past Medical History - Past Health History Medical/Surgical History: Denies Medical/Surgical History HEENT History: Reports: None Cardiovascular History: Reports: None Respiratory History: Reports: None Gastrointestinal History: Reports: GERD Genitourinary History: Reports: UTI, Recurrent 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: , 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 Musculoskeletal History: Reports: Fracture Other Musculoskeletal History: Toe finger Neurological History: Reports: Seizure Psychiatric History: Reports: ADD, Anxiety, Depression 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 Endocrine/Metabolic History: Reports: None Hematologic History: Reports: None Immunologic History: Reports: None Oncologic (Cancer) History: Reports: None Dermatologic History: Reports: None - Infectious Disease History Infectious Disease History: Reports: Chicken Pox - Past Surgical History Head Surgeries/Procedures: Reports: None HEENT Surgical History: Reports: Myringotomy w Tube(s) Other HEENT Surgeries/Procedures: MIGRAINES GI Surgical History: Reports: Cholecystectomy, Matthew Fundoplication Female Surgical History: Reports: Hysterectomy Neurological Surgical History: Reports: None Musculoskeletal Surgical History: Reports: None Dermatological Surgical History: Reports: None Social & Family History - Family History Family Medical History: Noncontributory - Tobacco Use Smoking Status *Q: Current Some Day Smoker Years of Tobacco use: 20 Packs/Tins Daily: 0.1 Used Tobacco, but Quit: No Month Tobacco Last Used: November 2016 Second Hand Smoke Exposure: No - Caffeine Use Caffeine Use: Reports: Coffee, Soda, Tea - Alcohol Use Days Per Week of Alcohol Use: 2 Number of Drinks Per Day: 1 Total Drinks Per Week: 2 - Recreational Drug Use Recreational Drug Use: No Drug Use in Last 12 Months: No Recreational Drug Type: Reports: Benzodiazepines Recreational Drug Use Frequency: Not Used In Over 1 Year ED ROS GENERAL - Review of Systems Review Of Systems: See Below Constitutional: Reports: No Symptoms HEENT: Reports: No Symptoms Respiratory: Reports: No Symptoms Cardiovascular: Reports: No Symptoms GI/Abdominal: Reports: Abdominal Pain. Denies: Black Stool, Bloody Stool, Constipation, Diarrhea, Decreased Appetite, Distension, Flatus, Hematemesis, Hematochezia, Melena, Nausea, Vomiting : Reports: Flank Pain (radiates toward the L flank), Frequency. Denies: Dysuria, Urgency, Urinary Retention Musculoskeletal: Reports: No Symptoms Skin: Reports: No Symptoms Neurological: Reports: No Symptoms Psychiatric: Reports: No Symptoms ED EXAM, GI/ABD - Physical Exam Exam: See Below Exam Limited By: No Limitations General Appearance: Alert, WD/WN, No Apparent Distress Eyes: Bilateral: Normal Appearance, EOMI Ears: Normal External Exam, Normal Canal, Hearing Grossly Normal, Normal TMs Nose: Normal Inspection, Normal Mucosa, No Blood Throat/Mouth: Normal Inspection, Normal Lips, Normal Oropharynx, Normal Voice, No Airway Compromise Head: Atraumatic, Normocephalic Neck: Normal Inspection, Supple, Non-Tender Respiratory/Chest: No Respiratory Distress, Lungs Clear, Normal Breath Sounds, No Accessory Muscle Use Cardiovascular: Regular Rate, Rhythm, No Edema GI/Abdominal Exam: Normal Bowel Sounds, Soft, No Distention, Tender (Very slight increase in her low abdominal pain with palpation. ) Back Exam: No: CVA Tenderness (R), CVA Tenderness (L) Extremities: Normal Inspection, Normal Range of Motion, Non-Tender, No Pedal Edema Neurological: Alert, Oriented, CN II-XII Intact, No Motor/Sensory Deficits Psychiatric: Normal Affect, Anxious Skin Exam: Warm, Dry, Intact, Normal Color, No Rash Lymphatic: No Adenopathy Course - Vital Signs Last Recorded V/S: Last Vital Signs Temp 36.8 C 06/15/17 17:47 Pulse 89 06/15/17 17:47 Resp 16 06/15/17 17:47 BP 120/78 06/15/17 17:47 Pulse Ox 97 06/15/17 17:47 - Orders/Labs/Meds Orders: Active Orders 24 hr Category Date Time Status CULTURE URINE [RM] Stat Lab 06/15/17 18:30 Received Labs: Laboratory Tests 06/15/17 06/15/17 06/15/17 Range/Units 18:25 18:32 18:32 WBC 12.0 H (4.5-11.0) K/uL RBC 4.91 (3.30-5.50) M/uL Hgb 13.0 (12.0-15.0) g/dL Hct 40.3 (36.0-48.0) % MCV 82 (80-98) fL MCH 27 (27-31) pg MCHC 32 (32-36) % Plt Count 379 (150-400) K/uL C-Reactive Protein 0.61 H (0.0-0.3) mg/dL Urine Color Yellow Urine Appearance Slightly cloudy Urine pH 5.0 (4.5-8.0) Ur Specific [place] 1.030 (1.008-1.030) Urine Protein Negative (NEGATIVE) mg/dL Urine Glucose (UA) Normal (NEGATIVE) mg/dL Urine Ketones Negative (NEGATIVE) mg/dL Urine Occult Blood Negative (NEGATIVE) Urine Nitrite Negative (NEGATIVE) Urine Bilirubin Negative (NEGATIVE) Urine Urobilinogen Normal (NORMAL) mg/dL Ur Leukocyte Esterase Large (NEGATIVE) Urine RBC 0-5 (0-5) Urine WBC 40-50 H (0-5) Ur Epithelial Cells Moderate Amorphous Sediment Not seen Urine Bacteria Many Urine Mucus Few Meds: Medications Discontinued Medications Generic Name Dose Route Start Last Admin Trade Name Freq PRN Reason Stop Dose Admin Cephalexin 500 mg 06/15/17 18:49 06/15/17 18:54 Keflex PO 06/15/17 18:50 500 mg ONETIME ONE Administration Ketorolac Tromethamine 60 mg 06/15/17 18:31 06/15/17 18:36 Toradol IM 06/15/17 18:32 60 mg ONETIME ONE Administration Departure - Departure Time of Disposition: 19:08 Disposition: Home, Self-Care 01 Condition: Fair Clinical Impression: UTI (urinary tract infection) Qualifiers: Urinary tract infection type: site unspecified Hematuria presence: without hematuria Qualified Code(s): N39.0 - Urinary tract infection, site not specified - Discharge Information Referrals: Hoda Barillas CNM [Primary Care Provider] - Forms: ED Department Discharge - My Orders Last 24 Hours: My Active Orders 06/15/17 18:30 CULTURE URINE [RM] Stat - Assessment/Plan Last 24 Hours: My Active Orders 06/15/17 18:30 CULTURE URINE [RM] Stat
[2017-06-15] MEDS ORDERED: Cephalexin 250 MG Cap PO ONE (18:49)
[2017-06-15 19:28] VITALS: BP 120/78
== END 2017-06-15 19:29 | disposition home or self-care (01) ==
LOC: JP.ED 17:19
DX: N39.0 Urinary tract infection, site not specified (principal); F17.210 Nicotine dependence, cigarettes, uncomplicated; Z79.899 Other long term (current) drug therapy; Z88.5 Allergy status to narcotic agent
CPT/HCPCS: 36415; 81001; 85027; 86140; 87086; 96372; 99284; A9270; J1885

== ENCOUNTER 2017-08-21 19:17 | Emergency (ER) | payer MEDICAID ==
[2017-08-21 20:02] VITALS: BP 144/89
--- NOTE | 2017-08-21 20:57 | EDM.PDOC ---
ED HPI GENERAL MEDICAL PROBLEM - General Chief Complaint: Lower Extremity Injury/Pain Stated Complaint: RIGHT ANKLE PAIN,FALL Time Seen by Provider: 08/21/17 20:05 Source of Information: Reports: Patient History Limitations: Reports: No Limitations - History of Present Illness INITIAL COMMENTS - FREE TEXT/NARRATIVE: Pt was coming down her steps today and missed a step and twisted her rt ankle. She did not have alot of pain in the ankle at first but it then became very uncomfortable and it began to swell. Onset: Today Duration: Hour(s): Location: Reports: Lower Extremity, Right Associated Symptoms: Reports: Other (Pain in the rt ankle. ) Treatments BELT SEWER: Reports: Other (see below) Other Treatments BELT SEWER: none right ankle Pain Score (Numeric/FACES): 8 - Related Data Allergies Allergy/AdvReac Type Severity Reaction Status Date / Time tramadol Allergy Severe Seizure Verified 05/25/17 14:06 Home Meds: Home Meds Omeprazole 40 mg PO ASDIRECTED 01/21/17 [History] buPROPion HCl [Wellbutrin SR] 150 mg PO DAILY #7 tablet.er 05/25/17 [Rx] clonazePAM [Clonazepam] 0.5 mg PO QID PRN 7 Days #20 tab.rapdis 05/25/17 [Rx] Dextroamphetamine/Amphetamine [Adderall 20 mg Tablet] 20 mg PO DAILY PRN [History] Ibuprofen [Motrin] 200 mg PO Q6H PRN 06/15/17 [History] Past Medical History - Past Health History Medical/Surgical History: Denies Medical/Surgical History HEENT History: Reports: None Cardiovascular History: Reports: None Respiratory History: Reports: None Gastrointestinal History: Reports: GERD Genitourinary History: Reports: UTI, Recurrent 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: , 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 Musculoskeletal History: Reports: Fracture Other Musculoskeletal History: Toe finger Neurological History: Reports: Seizure Psychiatric History: Reports: ADD, Anxiety, Depression, Psych Hospitalization(s) , Suicide Attempt, Other (See Below) 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 Endocrine/Metabolic History: Reports: None Hematologic History: Reports: None Immunologic History: Reports: None Oncologic (Cancer) History: Reports: None Dermatologic History: Reports: None - Infectious Disease History Infectious Disease History: Reports: Chicken Pox - Past Surgical History HEENT Surgical History: Reports: Myringotomy w Tube(s) Other HEENT Surgeries/Procedures: MIGRAINES GI Surgical History: Reports: Cholecystectomy, Matthew Fundoplication Female Surgical History: Reports: Hysterectomy Social & Family History - Family History Family Medical History: Noncontributory - Tobacco Use Smoking Status *Q: Current Every Day Smoker Years of Tobacco use: 21 Packs/Tins Daily: 0.2 Used Tobacco, but Quit: No Month Tobacco Last Used: November 2016 Second Hand Smoke Exposure: No - Caffeine Use Caffeine Use: Reports: Coffee, Soda - Alcohol Use Days Per Week of Alcohol Use: 2 Number of Drinks Per Day: 1 Total Drinks Per Week: 2 - Recreational Drug Use Recreational Drug Use: Yes Drug Use in Last 12 Months: No Recreational Drug Type: Reports: Benzodiazepines Recreational Drug Use Frequency: Not Used In Over 1 Year Review of Systems - Review of Systems Review Of Systems: See Below Constitutional: Reports: No Symptoms Eyes: Reports: No Symptoms Ears: Reports: No Symptoms Nose: Reports: No Symptoms Mouth/Throat: Reports: No Symptoms Respiratory: Reports: No Symptoms Cardiovascular: Reports: No Symptoms GI/Abdominal: Reports: No Symptoms Musculoskeletal: Reports: Other ( Pain in rt ankle. ) ED EXAM, GENERAL - Physical Exam Exam: See Below Free Text/Narrative:: pt arrived with pain and swelling on the lateral aspect of the rt ankle. Exam Limited By: No Limitations General Appearance: Alert, Moderate Distress Ears: Normal External Exam Nose: Normal Inspection Throat/Mouth: Normal Inspection Head: Atraumatic Neck: Normal Inspection Respiratory/Chest: No Respiratory Distress Extremities: Other ( Rt ankle is swollen and tender on the lateral aspect. ) Course - Vital Signs Last Recorded V/S: Last Vital Signs Temp 36.8 C 08/21/17 20:10 Pulse 118 H 08/21/17 20:10 Resp 16 08/21/17 20:10 BP 144/89 H 08/21/17 20:10 Pulse Ox 99 08/21/17 20:10 - Orders/Labs/Meds Orders: Active Orders 24 hr Category Date Time Status Ankle Min 3V Rt [CR] Stat Exams 08/21/17 20:11 Ordered - Re-Assessments/Exams Free Text/Narrative Re-Assessment/Exam: 08/21/17 20:56 xrays did not reveal fracture. Departure - Departure Time of Disposition: 20:56 Disposition: Home, Self-Care 01 Condition: Fair Clinical Impression: Right ankle sprain - Discharge Information Referrals: Hoda Barillas CNM [Primary Care Provider] - Care Plan Goals: ice pack, stirup splint, crutches, motrin 600mg tid. as needed for pain, norco 5/325 1 tab q6h #4 - My Orders Last 24 Hours: My Active Orders 08/21/17 20:11 Ankle Min 3V Rt [CR] Stat - Assessment/Plan Last 24 Hours: My Active Orders 08/21/17 20:11 Ankle Min 3V Rt [CR] Stat
[2017-08-21] MEDS ORDERED: Acetaminophen/HYDROcodone 325-5 MG Tab PO ONE (20:59)
--- NOTE | 2017-08-22 09:52 | CR ---
Ankle Min 3V Rt HISTORY: Twisting injury. COMPARISON: None FINDINGS: No fracture or dislocation. Lateral swelling. No bony destructive process.
== END 2017-08-21 21:16 | disposition home or self-care (01) ==
LOC: JP.ED 19:17
DX: S93.401A Sprain of unspecified ligament of right ankle, initial encounter (principal); F17.210 Nicotine dependence, cigarettes, uncomplicated; K21.9 Gastro-esophageal reflux disease without esophagitis; F41.9 Anxiety disorder, unspecified; Z79.899 Other long term (current) drug therapy; Z88.5 Allergy status to narcotic agent; W10.9XXA Fall (on) (from) unspecified stairs and steps, initial encounter
CPT/HCPCS: 73610; 99284; A9270

== ENCOUNTER 2017-10-17 13:07 | Emergency (ER) | payer MEDICAID ==
[2017-10-17] MEDS ORDERED: Ketorolac 60 MG/2 ML SDV IM ONE (13:59)
[2017-10-17] MEDS ORDERED: Cyclobenzaprine 10 MG Tab PO ONE (13:59)
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
== END 2017-10-17 15:13 | disposition home or self-care (01) ==
LOC: JP.ED 13:07
DX: S13.4XXA Sprain of ligaments of cervical spine, initial encounter (principal); F17.210 Nicotine dependence, cigarettes, uncomplicated; Z88.5 Allergy status to narcotic agent; Z79.899 Other long term (current) drug therapy; V49.9XXA Car occupant (driver) (passenger) injured in unspecified traffic accident, initial encounter
CPT/HCPCS: 96372; 99283; 99284; A9270; J1885

== ENCOUNTER → 2017-11-26 | Emergency (ER) | payer MEDICAID ==
[2017-11-26 01:26] LABS: ACETAMINOPHEN 3.8 ug/mL (10.0-30.0)
== END ==
LOC: JP.ED 00:23
DX: T65.91XA Toxic effect of unspecified substance, accidental (unintentional), initial encounter (principal)
CPT/HCPCS: 36415; 80048; 85025; G0480

== ENCOUNTER 2017-11-30 19:59 | Emergency (ER) | payer MEDICAID ==
[2017-11-30 20:09] VITALS: BP 119/85
[2017-11-30] MEDS ORDERED: Temazepam 15 MG Cap PO ONE (20:25)
--- NOTE | 2017-11-30 20:31 | EDM.PDOCBH ---
ED HPI GENERAL MEDICAL PROBLEM - General Chief Complaint: Behavioral/Psych Stated Complaint: EVAL Time Seen by Provider: 11/30/17 20:15 Source of Information: Reports: Patient, Old Records, RN History Limitations: Reports: No Limitations - History of Present Illness INITIAL COMMENTS - FREE TEXT/NARRATIVE: 31 yo female with bipolar depression presents to the ER with insomnia x 2 days. Has bipolar depression and is in a manic or hypomanic phase. Has been off meds for this until now, but did see her psychiatrist today and was prescribed Mears. Has tried diphenhydramine and melatonin without benefit. In the past tried and did not tolerate trazodone and Ambien. Onset: Gradual Onset Date: 11/27/17 Duration: Day(s): (no sleep past 2 nights), Constant Location: Reports: Head Quality: Reports: Other (no pain) Severity: Moderate Improves with: Reports: Medication Worsens with: Reports: Other (abbi/hypomania of her bipolar depression.) Context: Reports: Other (Bipolar) Associated Symptoms: Reports: Other (anorexia) Treatments [employer]: Reports: Other (see below) (none today) Chest Pain Score (Numeric/FACES): 5 - Related Data Allergies Allergy/AdvReac Type Severity Reaction Status Date / Time tramadol Allergy Severe Seizure Verified 11/30/17 20:09 Sulfa (Sulfonamide Allergy Nausea and Verified 11/30/17 20:09 Antibiotics) Vomiting Home Meds: Home Meds Omeprazole 20 mg PO ASDIRECTED 01/21/17 [History] Gabapentin [Neurontin] 300 mg PO DAILY 11/26/17 [History] Mears Carbonate [Eskalith CR] 450 mg PO BID 11/30/17 [History] Melatonin 5 mg PO BEDTIME 11/30/17 [History] Propranolol [Inderal] 20 mg PO BID 11/30/17 [History] buPROPion HCl [Wellbutrin SR] 75 mg PO DAILY 11/30/17 [History] Past Medical History Cardiovascular History: Reports: None Respiratory History: Reports: None Gastrointestinal History: Reports: GERD Genitourinary History: Reports: UTI, Recurrent 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: , 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 Musculoskeletal History: Reports: Fracture Other Musculoskeletal History: Toe finger Neurological History: Reports: Seizure Psychiatric History: Reports: ADD, Anxiety, Bipolar, Depression, Psych Hospitalization(s), PTSD, Suicide Attempt, Other (See Below) Other 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 Endocrine/Metabolic History: Reports: None Hematologic History: Reports: None Immunologic History: Reports: None Oncologic (Cancer) History: Reports: None Dermatologic History: Reports: None - Infectious Disease History Infectious Disease History: Reports: Chicken Pox - Past Surgical History GI Surgical History: Reports: Cholecystectomy, Matthew Fundoplication Female Surgical History: Reports: Hysterectomy Social & Family History - Family History Family Medical History: Noncontributory - Tobacco Use Smoking Status *Q: Current Every Day Smoker Years of Tobacco use: 21 Packs/Tins Daily: 0.5 - Caffeine Use Caffeine Use: Reports: Coffee, Soda - Recreational Drug Use Recreational Drug Use: No ED ROS GENERAL - Review of Systems Review Of Systems: See Below Constitutional: Reports: No Symptoms HEENT: Reports: No Symptoms Respiratory: Reports: No Symptoms Cardiovascular: Reports: No Symptoms GI/Abdominal: Reports: Anorexia, Decreased Appetite. Denies: Nausea : Reports: No Symptoms Musculoskeletal: Reports: No Symptoms Skin: Reports: No Symptoms Neurological: Reports: No Symptoms Psychiatric: Reports: Other (insomnia) ED EXAM, BEHAVIORAL HEALTH - Physical Exam Exam: See Below Exam Limited By: No Limitations General Appearance: Alert, WD/WN, No Apparent Distress Eye Exam: Bilateral Eye: Normal Inspection Ears: Normal External Exam, Normal Canal, Hearing Grossly Normal Nose: Normal Inspection, Normal Mucosa, No Blood Throat/Mouth: Normal Inspection, Normal Lips, Normal Oropharynx, Normal Voice, No Airway Compromise Head: Atraumatic, Normocephalic Neck: Normal Inspection Respiratory/Chest: No Respiratory Distress, Lungs Clear, Normal Breath Sounds, No Accessory Muscle Use Cardiovascular: Regular Rate, Rhythm, No Edema Extremities: Normal Inspection Neurological: Alert, Normal Mood/Affect, CN II-XII Intact, Normal Cognition, No Motor/Sensory Deficits, Oriented x 3 Psychiatric: Alert, Normal Affect, Normal Cognition, Normal Mood, Oriented Skin Exam: Warm, Dry, Intact, Normal color, No rash COURSE, BEHAVIORAL HEALTH COMP - Course Vital Signs: Last Vital Signs Temp 37.3 C 11/30/17 20:05 Pulse 101 H 11/30/17 20:05 Resp 18 11/30/17 20:05 BP 119/85 11/30/17 20:05 Pulse Ox 99 11/30/17 20:05 Orders, Labs, Meds: Medications Discontinued Medications Generic Name Dose Route Start Last Admin Trade Name Carlos Enrique PRN Reason Stop Dose Admin Temazepam 30 mg 11/30/17 20:25 Restoril PO 11/30/17 20:26 ONETIME ONE Departure - Departure Time of Disposition: 20:40 Disposition: Home, Self-Care 01 Condition: Good Clinical Impression: Insomnia due to mental disorder - Discharge Information Referrals: PCP,None [Primary Care Provider] - Forms: ED Department Discharge Additional Instructions: Call your doctor tomorrow to discuss your insomnia. Return as needed. No driving tonight.
== END 2017-11-30 20:37 | disposition home or self-care (01) ==
LOC: JP.ED 19:59
DX: F51.05 Insomnia due to other mental disorder (principal); F17.210 Nicotine dependence, cigarettes, uncomplicated; Z88.6 Allergy status to analgesic agent; Z88.2 Allergy status to sulfonamides; Z79.899 Other long term (current) drug therapy
CPT/HCPCS: 99285; A9270

== ENCOUNTER 2017-12-18 11:55 | Emergency (ER) | payer MEDICAID | END 2017-12-18 12:48 | disposition left against medical advice (07) | LOC: JP.ED 11:55 | DX: Z53.21 Procedure and treatment not carried out due to patient leaving prior to being seen by health care provider (principal) ==

== ENCOUNTER 2017-12-19 08:05 | Emergency (ER) | payer MEDICAID ==
[2017-12-19 08:21] VITALS: BP 132/91
--- NOTE | 2017-12-19 08:37 | EDM.PDOC ---
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 She's been using some topical yeast medication but over-the- counter but not improving significantly. No fevers or chills. Onset: Gradual (Over the past several days) Pelvic Pain Score (Numeric/FACES): 7 - Related Data Allergies Allergy/AdvReac Type Severity Reaction Status Date / Time tramadol Allergy Severe Seizure Verified 11/30/17 20:09 Sulfa (Sulfonamide Allergy Nausea and Verified 11/30/17 20:09 Antibiotics) Vomiting Home Meds: Home Meds Omeprazole 20 mg PO ASDIRECTED 01/21/17 [History] Gabapentin [Neurontin] 300 mg PO DAILY 11/26/17 [History] [place] Carbonate [Eskalith CR] 900 mg PO BEDTIME 11/30/17 [History] Melatonin 6 mg PO BEDTIME 11/30/17 [History] Propranolol [Inderal] 20 mg PO BID 11/30/17 [History] ClonazePAM [KlonoPIN] 0.5 mg PO DAILY 12/19/17 [History] Past Medical History Cardiovascular History: Reports: None Respiratory History: Reports: None Gastrointestinal History: Reports: GERD Genitourinary History: Reports: UTI, Recurrent 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: , 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 Musculoskeletal History: Reports: Fracture Other Musculoskeletal History: Toe finger Neurological History: Reports: Seizure Psychiatric History: Reports: ADD, Anxiety, Bipolar, Depression, Psych Hospitalization(s), PTSD, Suicide Attempt, Other (See Below) Other 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 Endocrine/Metabolic History: Reports: None Hematologic History: Reports: None Immunologic History: Reports: None Oncologic (Cancer) History: Reports: None Dermatologic History: Reports: None - Infectious Disease History Infectious Disease History: Reports: Chicken Pox - Past Surgical History Head Surgeries/Procedures: Reports: None GI Surgical History: Reports: Cholecystectomy, Matthew Fundoplication Female Surgical History: Reports: Hysterectomy Social & Family History - Family History Family Medical History: Noncontributory - Tobacco Use Smoking Status *Q: Current Every Day Smoker Years of Tobacco use: 20 Packs/Tins Daily: 0.5 - Caffeine Use Caffeine Use: Reports: Coffee - Recreational Drug Use Recreational Drug Use: No ED ROS GENERAL - Review of Systems Review Of Systems: See Below Constitutional: Denies: Fever, Chills GI/Abdominal: Reports: Abdominal Pain (Some mild very low anterior abdominal and pelvic discomfort) : Denies: Dysuria Skin: Reports: No Symptoms Neurological: Denies: Headache ED EXAM, GENERAL - Physical Exam Exam: See Below Exam Limited By: No Limitations General Appearance: Alert, No Apparent Distress Respiratory/Chest: No Respiratory Distress GI/Abdominal: Soft, Non-Tender (Female) Exam: Other (External vaginal genitalia look fairly normal. There is a slight whitish discharge of the vaginal mucosa and posterior vaginal area, cervix is absent. No ulcerations or significant lesions.) Course - Vital Signs Last Recorded V/S: Last Vital Signs Temp 97.2 F 12/19/17 08:26 Pulse 87 12/19/17 08:26 Resp 16 12/19/17 08:26 BP 132/91 H 12/19/17 08:26 Pulse Ox 98 12/19/17 08:26 - Re-Assessments/Exams Free Text/Narrative Re-Assessment/Exam: 12/19/17 08:36 Patient can continue her vaginal Monistat, and she was given Diflucan 150 mg to take one pill today and repeat in 7 days. She can recheck at the clinic if not improving satisfactorily. Departure - Departure Time of Disposition: 08:45 Disposition: Home, Self-Care 01 Condition: Good Clinical Impression: Candidal vulvovaginitis - Discharge Information Instructions: Vaginal Yeast Infection, Adult Referrals: PCP,None [Primary Care Provider] - Forms: ED Department Discharge Care Plan Goals: Continue with your topical Monistat, take one pill of Diflucan today and repeat in 7 days. Recheck at the clinic this week if worsening despite treatment, or consider rechecking in 2 weeks if not improving satisfactorily.
== END 2017-12-19 08:46 | disposition home or self-care (01) ==
LOC: JP.ED 08:05
DX: B37.3 Candidiasis of vulva and vagina (principal); K21.9 Gastro-esophageal reflux disease without esophagitis; F17.210 Nicotine dependence, cigarettes, uncomplicated; Z79.899 Other long term (current) drug therapy; Z88.5 Allergy status to narcotic agent; Z88.2 Allergy status to sulfonamides
CPT/HCPCS: 99284

== ENCOUNTER 2017-12-24 16:15 | Emergency (ER) | payer MEDICAID ==
[2017-12-24 16:53] VITALS: BP 128/84
--- NOTE | 2017-12-24 17:20 | EDM.PDOCBH ---
ED HPI GENERAL MEDICAL PROBLEM - General Chief Complaint: Behavioral/Psych Stated Complaint: EVAL Time Seen by Provider: 12/24/17 17:00 Source of Information: Reports: Patient, Police History Limitations: Reports: No Limitations - History of Present Illness INITIAL COMMENTS - FREE TEXT/NARRATIVE: Ivette presents today with complaints of excessive alcohol intake and verbalizing thoughts of suicide to her sister. - Related Data Allergies Allergy/AdvReac Type Severity Reaction Status Date / Time tramadol Allergy Severe Seizure Verified 12/24/17 16:40 Sulfa (Sulfonamide Allergy Nausea and Verified 12/24/17 16:40 Antibiotics) Vomiting Home Meds: Home Meds Omeprazole 20 mg PO ASDIRECTED 01/21/17 [History] Gabapentin [Neurontin] 300 mg PO DAILY 11/26/17 [History] [place] Carbonate [Eskalith CR] 900 mg PO BEDTIME 11/30/17 [History] Melatonin 6 mg PO BEDTIME 11/30/17 [History] ClonazePAM [KlonoPIN] 0.5 mg PO DAILY 12/19/17 [History] Past Medical History Cardiovascular History: Reports: None Respiratory History: Reports: None Gastrointestinal History: Reports: GERD Genitourinary History: Reports: UTI, Recurrent 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: , 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 Musculoskeletal History: Reports: Fracture Other Musculoskeletal History: Toe finger Neurological History: Reports: Seizure Psychiatric History: Reports: ADD, Anxiety, Bipolar, Depression, Psych Hospitalization(s), PTSD, Suicide Attempt, Other (See Below) Other [facility] History: [facility] Endocrine/Metabolic History: Reports: None Hematologic History: Reports: None Immunologic History: Reports: None Oncologic (Cancer) History: Reports: None Dermatologic History: Reports: None - Infectious Disease History Infectious Disease History: Reports: Chicken Pox - Past Surgical History Head Surgeries/Procedures: Reports: None GI Surgical History: Reports: Cholecystectomy, Matthew Fundoplication Female Surgical History: Reports: Hysterectomy Social & Family History - Family History Family Medical History: Noncontributory - Tobacco Use Smoking Status *Q: Current Every Day Smoker Years of Tobacco use: 10 Packs/Tins Daily: 0.5 - Caffeine Use Caffeine Use: Reports: Coffee ED ROS GENERAL - Review of Systems Review Of Systems: See Below Constitutional: Denies: Fever, Chills, Malaise, Weakness HEENT: Reports: No Symptoms Respiratory: Denies: Shortness of Breath, Wheezing, Cough, Sputum, Hemoptysis Cardiovascular: Reports: No Symptoms Endocrine: Reports: No Symptoms GI/Abdominal: Reports: No Symptoms : Reports: No Symptoms Musculoskeletal: Reports: No Symptoms Skin: Reports: No Symptoms Neurological: Reports: No Symptoms Psychiatric: Reports: Depression, Other (Per attending police commanding officer, Ivette made comments to her sister that she didn't want to be here any more and wanted to . Ivette now states that she was upset about her taking their son and kicking her out of the house. Ivette's son is now with her sister and in good care. She states she just said those things and does not want to kill herself. ) Hematologic/Lymphatic: Reports: No Symptoms Immunologic: Reports: No Symptoms ED EXAM, BEHAVIORAL HEALTH - Physical Exam Exam: See Below Text/Narrative:: Ivette presents today with a police commanding officer for evaluation of safety after making comments about wanting to kill herself. Exam Limited By: Intoxication General Appearance: Alert, WD/WN, No Apparent Distress Eye Exam: Bilateral Eye: EOMI, Normal Inspection, PERRL Ears: Normal External Exam, Normal Canal, Hearing Grossly Normal, Normal TMs Nose: Normal Inspection, Normal Mucosa, No Blood Throat/Mouth: Normal Inspection, Normal Lips, Normal Gums, Normal Oropharynx, Normal Voice, No Airway Compromise Head: Atraumatic, Normocephalic Neck: Normal Inspection, Supple, Non-Tender, Full Range of Motion. No: Lymphadenopathy (R), Lymphadenopathy (L) Respiratory/Chest: No Respiratory Distress, Lungs Clear, Normal Breath Sounds, No Accessory Muscle Use, Chest Non-Tender Cardiovascular: Normal Peripheral Pulses, Regular Rate, Rhythm, No Edema, No Murmur, No Rub GI/Abdominal: Normal Bowel Sounds, Soft, Non-Tender, No Organomegaly, No Distention, No Mass Back Exam: Normal Inspection, Full Range of Motion. No: CVA Tenderness (R), CVA Tenderness (L) Extremities: Normal Inspection, Normal Range of Motion, Non-Tender, No Pedal Edema, Normal Capillary Refill Neurological: Alert, Normal Cognition, Normal Gait, Normal Reflexes, No Motor/ Sensory Deficits, Oriented x 3, Other ([facility]OH on board) Psychiatric: Alert, Oriented, Other (ETOH on board, she denies suicidal/ homicidal thoughts or plans at this time. ) Skin Exam: Warm, Dry, Intact, Normal color, No rash COURSE, BEHAVIORAL HEALTH COMP - Course Vital Signs: Last Vital Signs Temp 36.5 C 12/24/17 16:51 Pulse 116 H 12/24/17 16:51 Resp 14 12/24/17 16:51 BP 128/84 12/24/17 16:51 Pulse Ox 98 12/24/17 16:51 Re-Assessment/Re-Exam: Ivette states she now denies suicidal/homicidal ideation or plan. She states her son is in a safe place, she is going to go home and rest so she can see her son tomorrow. She was offered IV fluids/hydration. She declined. special weapons unit officer will provide her transportation home. She was advised to stop use of all alcohol, avoid any illicit drug use. Follow up as directed. She verbalized understanding. Departure - Departure Time of Disposition: 17:21 Disposition: Home, Self-Care 01 Condition: Good Clinical Impression: Alcohol intake above recommended sensible limits - Discharge Information Referrals: PCP,None [Primary Care Provider] - Forms: ED Department Discharge Additional Instructions: You have been evaluated for too much alcohol intake. It would be best for you to hydrate yourself with drinking plenty of water. Go home and rest. Do not drink any more alcohol this weekend. Follow up with your primary provider in 3 to 7 days for a recheck. Stay with someone who can watch out for you. Return for worsening, thoughts of suicide/homicide or plans. Take your medications as prescribed. - Assessment/Plan Assessment:: Alcohol intake above sensible limits Plan: Patient evaluated for too much alcohol intake. It would be best for her to hydrate yourself with drinking plenty of water. Go home and rest. Do not drink any more alcohol this weekend. Follow up with her primary provider in 3 to 7 days for a recheck. Stay with someone who can watch out for her. Return for worsening, thoughts of suicide/homicide or plans. Take medications as prescribed.
== END 2017-12-24 17:45 | disposition home or self-care (01) ==
LOC: JP.ED 16:15
DX: F10.129 Alcohol abuse with intoxication, unspecified (principal); F17.210 Nicotine dependence, cigarettes, uncomplicated; F31.9 Bipolar disorder, unspecified; Z79.899 Other long term (current) drug therapy; Z88.5 Allergy status to narcotic agent; Z88.2 Allergy status to sulfonamides; F41.9 Anxiety disorder, unspecified
CPT/HCPCS: 99285

== ENCOUNTER 2018-01-23 14:49 | Emergency (ER) | payer MEDICAID ==
[2018-01-23 15:16] VITALS: BP 142/86
== END 2018-01-23 17:06 | disposition left against medical advice (07) ==
LOC: JP.ED 14:49
DX: Z53.21 Procedure and treatment not carried out due to patient leaving prior to being seen by health care provider (principal)

== ENCOUNTER 2018-04-16 11:46 | Emergency (ER) | payer MEDICAID ==
[2018-04-16 12:21] VITALS: BP 124/69
[2018-04-16] MEDS ORDERED: Ondansetron 4 MG Tab.DIS PO ONE (12:40)
--- NOTE | 2018-04-16 13:11 | EDM.PDOC ---
ED HPI GENERAL MEDICAL PROBLEM - General Chief Complaint: Gastrointestinal Problem Stated Complaint: CRAMPS,HEADACHE Time Seen by Provider: 04/16/18 12:32 Source of Information: Reports: Patient History Limitations: Reports: No Limitations - History of Present Illness INITIAL COMMENTS - FREE TEXT/NARRATIVE: 32 yo female presents with a 3 month hx of ABD pain and cramping. bloated feeling. nausea. pain is generalized. decrease urine output. - Related Data Allergies Allergy/AdvReac Type Severity Reaction Status Date / Time tramadol Allergy Severe Seizure Verified 04/16/18 12:10 Sulfa (Sulfonamide Allergy Nausea and Verified 04/16/18 12:10 Antibiotics) Vomiting Home Meds: Home Meds [place] Carbonate [Eskalith CR] 900 mg PO BEDTIME 11/30/17 [History] Melatonin 6 mg PO BEDTIME 11/30/17 [History] Bran/Gum/Fib/Eduarda/Psyl/Kelp/Pec [Fiber 6 Tablet] 04/16/18 [History] Escitalopram Oxalate [Lexapro] 04/16/18 [History] Omeprazole 04/16/18 [History] Past Medical History Cardiovascular History: Reports: None Respiratory History: Reports: None Gastrointestinal History: Reports: Cholelithiasis, GERD Genitourinary History: Reports: UTI, Recurrent 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: , 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 Musculoskeletal History: Reports: Fracture Other Musculoskeletal History: Toe finger Neurological History: Reports: Seizure Psychiatric History: Reports: ADD, Anxiety, Bipolar, Depression, Psych Hospitalization(s), PTSD, Suicide Attempt, Other (See Below) Other 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 Endocrine/Metabolic History: Reports: None Hematologic History: Reports: None Immunologic History: Reports: None Oncologic (Cancer) History: Reports: None Dermatologic History: Reports: None - Infectious Disease History Infectious Disease History: Reports: Chicken Pox - Past Surgical History Head Surgeries/Procedures: Reports: None GI Surgical History: Reports: Cholecystectomy, Matthew Fundoplication Female Surgical History: Reports: Hysterectomy Social & Family History - Family History Family Medical History: Noncontributory - Tobacco Use Smoking Status *Q: Current Some Day Smoker Years of Tobacco use: 15 Packs/Tins Daily: 0.1 - Caffeine Use Caffeine Use: Reports: Coffee ED ROS GENERAL - Review of Systems Review Of Systems: See Below Constitutional: Reports: Fatigue. Denies: Fever, Chills Respiratory: Denies: Shortness of Breath, Wheezing Cardiovascular: Denies: Chest Pain, Blood Pressure Problem GI/Abdominal: Reports: Abdominal Pain, Constipation, Nausea. Denies: Diarrhea, Vomiting Skin: Denies: Rash Neurological: Denies: Dizziness, Headache ED EXAM, GI/ABD - Physical Exam Exam: See Below Exam Limited By: No Limitations General Appearance: Alert, WD/WN, No Apparent Distress Respiratory/Chest: No Respiratory Distress, Lungs Clear, Normal Breath Sounds, No Accessory Muscle Use, Chest Non-Tender. No: Crackles, Rhonchi, Wheezing Cardiovascular: Regular Rate, Rhythm, No Murmur GI/Abdominal Exam: Soft, No Organomegaly, Distended, Abnormal Bowel Sounds ( hyperactive) Neurological: Alert, Oriented Psychiatric: Normal Affect, Normal Mood Skin Exam: Warm, Dry, Intact Course - Vital Signs Last Recorded V/S: Last Vital Signs Temp 35.9 C 04/16/18 12:20 Pulse 64 04/16/18 12:20 Resp 14 04/16/18 12:20 BP 124/69 04/16/18 12:20 Pulse Ox 94 L 04/16/18 12:20 - Orders/Labs/Meds Orders: Active Orders 24 hr Category Date Time Status Abdomen 2V AP Flat Upright [CR] Stat Exams 04/16/18 12:41 Taken UA W/MICROSCOPIC [URIN] Stat Lab 04/16/18 12:58 Ordered Labs: Laboratory Tests 04/16/18 Range/Units 12:55 WBC 16.1 H (4.5-11.0) K/uL RBC 4.66 (3.30-5.50) M/uL Hgb 12.9 (12.0-15.0) g/dL Hct 39.2 (36.0-48.0) % MCV 84 (80-98) fL MCH 28 (27-31) pg MCHC 33 (32-36) % Plt Count 119 L (150-400) K/uL Neut % (Auto) 64 (36-66) % Lymph % (Auto) 27 (24-44) % [place] % (Auto) 7 H (2-6) % Eos % (Auto) 1 L (2-4) % Baso % (Auto) 0 (0-1) % Meds: Medications Discontinued Medications Generic Name Dose Route Start Last Admin Trade Name Freq PRN Reason Stop Dose Admin Ondansetron HCl 4 mg 04/16/18 12:40 04/16/18 13:08 Zofran Odt PO 04/16/18 12:41 4 mg ONETIME ONE Administration Departure - Departure Time of Disposition: 13:44 Disposition: Home, Self-Care 01 Condition: Good Clinical Impression: Abdominal pain - Discharge Information *PRESCRIPTION DRUG MONITORING PROGRAM REVIEWED*: Not Applicable *COPY OF PRESCRIPTION DRUG MONITORING REPORT IN PATIENT [place]RA: Not Applicable Referrals: Hoda Barillas CNM [Primary Care Provider] - Forms: ED Department Discharge Additional Instructions: GasX or other gas reducing medication exercise and movement will halp mobilize gas removal - My Orders Last 24 Hours: My Active Orders 04/16/18 12:41 Abdomen 2V AP Flat Upright [CR] Stat 04/16/18 12:58 UA W/MICROSCOPIC [URIN] Stat - Assessment/Plan Last 24 Hours: My Active Orders 04/16/18 12:41 Abdomen 2V AP Flat Upright [CR] Stat 04/16/18 12:58 UA W/MICROSCOPIC [URIN] Stat
--- NOTE | 2018-04-17 09:18 | CR ---
Abdomen 2V AP Flat Upright CLINICAL HISTORY: Abdominal pain FINDINGS: Intestinal gas pattern is nonacute. No free air is seen. There are surgical clips in the ri ght upper quadrant. No definite urinary calcifications are seen IMPRESSION: Nonacute intestinal gas pattern
== END 2018-04-16 14:04 | disposition home or self-care (01) ==
LOC: JP.ED 11:46
DX: R10.84 Generalized abdominal pain (principal); R11.0 Nausea; F17.210 Nicotine dependence, cigarettes, uncomplicated; Z88.2 Allergy status to sulfonamides; Z88.5 Allergy status to narcotic agent
CPT/HCPCS: 36415; 74019; 85025; 99284; A9270

== ENCOUNTER 2018-08-18 07:05 | Observation (INO) | payer MEDICAID ==
[~2018-08-18 07:05] MED LIST: Bupivacaine 0.5%/EPINEPHrine 1:200,000 50 ML MDV ONE
[2018-08-18] MEDS ORDERED: fentaNYL 250 MCG/5 ML SDV ONE ×2 (07:47→09:44)
[2018-08-18] MEDS ORDERED: Propofol 200 MG/20 ML SDV ONE (07:47)
[2018-08-18] MEDS ORDERED: Dexamethasone 4 MG/ML SDV ONE (07:47)
[2018-08-18] MEDS ORDERED: Ondansetron 4 MG/2 ML SDV ONE (07:47)
[2018-08-18] MEDS ORDERED: Succinylcholine 200 MG/10 ML MDV ONE ×2 (07:47→07:49)
[2018-08-18] MEDS ORDERED: Glycopyrrolate 0.2 MG/ML 5 ML MDV ONE (07:47)
[2018-08-18] MEDS ORDERED: Rocuronium 50 MG/5 ML Vial ONE ×2 (07:47→10:59)
[2018-08-18] MEDS ORDERED: Neostigmine Methylsulfate 1 MG/ML 5 ML Syringe ONE (07:47)
[2018-08-18] MEDS ORDERED: ceFAZolin 2 GM in Premix Bag 1 BAG IV ONE (08:30)
[2018-08-18] MEDS ORDERED: Ropivacaine 47 ML, Dexamethasone 8 MG, EPINEPHrine 0.4 MG, Sodium Chloride 0.9% 30.6 ML NERVRT SCH ×4 (08:45)
[2018-08-18] MEDS: Sodium Chloride 0.9% 1,000 ML IV SCH ×2 (08:52→17:49)
[2018-08-18] MEDS: metroNIDAZOLE/Normal Saline 500 MG in Premix Bag 1 BAG IV ONE ×2 (09:51→12:46)
[2018-08-18] MEDS ORDERED: Labetalol 20 MG/4 ML Syringe ONE (10:23)
[2018-08-18] MEDS ORDERED: Lactated Ringers 1,000 ML ONE (11:00)
[2018-08-18] MEDS ORDERED: Ketorolac 60 MG/2 ML SDV ONE (11:22)
[2018-08-18] MEDS ORDERED: Docusate Sodium 100 MG Cap PO PRN (11:32)
[2018-08-18] MEDS ORDERED: Bisacodyl 5 MG Tab PO PRN (11:32)
[2018-08-18] MEDS ORDERED: Benzocaine/Cetylpyridinium/Menthol Lozenge MUCMEM PRN (11:32)
[2018-08-18] MEDS ORDERED: Zolpidem 5 MG Tab PO PRN (11:32)
[2018-08-18] MEDS ORDERED: diphenhydrAMINE 50 MG/ML SDV IVPUSH PRN (11:32)
[2018-08-18] MEDS ORDERED: hydrOXYzine HCl 100 MG/2 ML SDV IM PRN (11:32)
[2018-08-18] MEDS ORDERED: Promethazine 25 MG/ML SDV IM PRN (11:32)
[2018-08-18] MEDS ORDERED: fentaNYL 100 MCG/2 ML SDV IVPUSH PRN (11:32)
[2018-08-18] MEDS: fentaNYL 100 MCG/2 ML SDV IVPUSH PRN ×2 (13:01→15:54)
--- NOTE | 2018-08-18 13:47 | OR ---
DATE OF PROCEDURE: 08/18/2018 PROCEDURE: Transverse abdominis plane block. COMPLICATIONS: None. BAR HOSTESS: None. INDICATIONS: This is a pleasant female requiring pain management in the postoperative period. RISKS: Risks, benefits, alternatives, and limitations including, but not limited to infection bleeding, and injury to abdominal structures was explained to the patient who wished to proceed. PROCEDURE IN DETAIL: The patient was placed in supine position. The right abdomen was addressed first. Under 11 MHz ultrasound guidance, a division between the 2nd and 3rd planes was identified specifically at transverse abdominis plane. The needle was introduced under direct ultrasound guide and total contrast in the syringe was injected. The left side was then performed in same manner, same fashion, same technique, in the same sequence using the same equipment. The only difference was different needle and syringe. All the pharmacy mixed dosage was injected. Dressings were applied. The patient tolerated the procedure well. Vinay Dan MD /[id number]
--- NOTE | 2018-08-18 15:29 | OR ---
DATE OF PROCEDURE: 08/18/2018 PROCEDURES: 1. Revision of paraesophageal hernia (54228). 2. Revision of laparoscopic Matthew. 3. Intraoperative EGD (11183). FINDINGS: 1. Unwrapped laparoscopic Matthew. 2. Large paraesophageal hernia. 3. No other gross abnormalities. ANESTHESIA: General/TAP. INDICATIONS: A pleasant 32-year-old female who underwent a laparoscopic Matthew approximately one year ago with another physician. This was unsuccessful and preoperative imaging showed unwrapping of the Matthew and recurrence of the paraesophageal hernia. This patient underwent a manometry testing and preoperative counseling, which included the fact that we cannot solve reflux disease, the fact that she might end up on proton pump inhibitors in the future. We also discussed the risks, benefits, alternatives, and limitations including infection, bleeding; injury to esophagus, aorta, pulmonary, and other chest structures. Also discussed the possibility of failure, failure rate, my experience with the procedure, fistula formation, sepsis causing bleeding to , possibility of open surgery and other risks not listed here. The patient understands these risks, goals, objectives, and limitations of the procedure and wishes to proceed. PROCEDURE IN DETAIL: The patient was placed in supine position. Approximately 2 cm to the previous 15 cm and to the right umbilicus incision, a new 10-mm port was made. A Veress needle was used to enter the abdomen without abnormality and a drop test was performed without abnormality. The abdomen was subsequently insufflated. This was followed by an Optiview trocar. Under direct visualization, four additional 5 mm ports were then entered. We left right- hand liver retractor and an additional port to manipulate the [place] drain. Once these were all in place, the liver was elevated and using a liver clamp, this was retracted anteriorly. It was immediately evident that the Matthew had completely unwrapped and the paraesophageal hernia had reoccurred. Dissection was then commenced with the left luc. Slow careful dissection was performed during this procedure with no energy source being contacted in the stomach or esophagus. Over the next approximately 40 minutes, dissection was commenced with a typical blunt dissection or electrocautery dissection. However, this was all in small pieces with the section typically blunt which allowed a small thin layer able to be seen and then transected with an energy device. There was extensive inflammation particularly with the esophagus due to the previous pledgets and repair. What appeared to be the vagus nerves were identified, but were not dissected due to the risk of iatrogenic injury. However, there was extensive inflammation which precluded positive verification. At the left luc, dissection continued. This was able to be mobilized. The pledgets were again noted to be adhered to the anterior and posterior surface of the esophagus. They were transected leaving a small amount of pledget material on the esophagus to, again, protect the nerve structures. Once the left side was completed, the right side was again mobilized in a similar manner. Eventually, a band passing device was able to be passed posterior to the esophagus. A [place] drain was then placed and an Endoloop was used to secure this. This facilitated further retraction and mobility of the esophagus and proximal stomach. The dissection continued on the greater curvature. The short gastrics were taken down before the surgery. There were dense adhesions which were lysed at that time. Eventually, mobilization was able to be completed of the Matthew wrap. This again was performed with a complete takedown of the previous wrap. The Matthew was performed at this time, this was a 2-cm loose wrap, which involved perforation into the esophagus and stomach, using interrupted sutures. These sutures were passed through the esophagus and stomach in a standard fashion. They were then secured into place. Of note, prior to this Matthew wrap, the removal of the sac was performed by this layer between the luc and the peritoneum of the sac. The sac was then sent to pathology. No significant bleeding was noted as this was mostly a blunt dissection in the avascular plane. Also, of note, through the entire procedure, the esophagus was inspected, reinspected, and verified for its location to decrease potential for iatrogenic injury. The paraesophageal hernia defect was repaired with a single posterior stitch and a single anterior stitch. These were passed directly through the crura. As this was passing on the left side, the opposite hand was used to protect the aorta and then, again, moved it on the right side. This was then sutured down into place. The patient was then placed in a head-down position. The abdomen was irrigated and injected with saline. The esophagus was inspected, which showed a good wrap. Air was injected. No bubbles or evidence of leak were noted. Gloves and gowns were then changed. The liquid was removed. Of note, during performance of the Matthew fundoplication, a 54 bougie was used to facilitate proper sizing. Once this was completed, Bio-A mesh was then tacked over the repair to increase scar formation and decrease the potential for reoccurrence. This was tacked into place along the luc. Excess material was cut away using the laparoscopic scissors. The abdomen was then irrigated. The air was removed. The wounds were then closed with 3-0 Vicryl and 4-0 Vicryl in an interrupted running fashion. Dermabond was applied. The patient tolerated the procedure well. Vinay Dan MD /[id number]
[2018-08-18] MEDS: Acetaminophen/oxyCODONE 325-10 MG Tab PO PRN ×2 (17:28→21:38)
[2018-08-18] MEDS: ceFAZolin 2 GM in Premix Bag 1 BAG IV SCH (17:29)
[2018-08-18] MEDS ORDERED: Lithium Carbonate 450 MG Tab.ER PO SCH (21:00)
[2018-08-19] MEDS: ceFAZolin 2 GM in Premix Bag 1 BAG IV SCH (00:40)
[2018-08-19] MEDS: Acetaminophen/oxyCODONE 325-10 MG Tab PO PRN ×2 (03:06→07:51)
[2018-08-19] MEDS ORDERED: Iohexol 647 MG/ML 50 ML SDV PO SCH (04:00)
[2018-08-19 10:17] VITALS: BP 126/78
--- NOTE | 2018-08-19 10:51 | PN ---
DATE OF SERVICE: 08/19/2018 SUBJECTIVE: The patient is doing very well today. Pain is well controlled. No nausea, vomiting, shortness of breath, or chest pain. She is tolerating diet, passing gas. No evidence of concerns. No specific questions. OBJECTIVE: VITAL SIGNS: Stable. CARDIOVASCULAR: Regular rhythm and rate. RESPIRATORY: Lungs clear to auscultation bilaterally. EXTREMITIES: Incisions healing well. ASSESSMENT AND PLAN: Status post laparoscopic Matthew and repair of type 3 hiatal hernia. The patient will be discharged today. See discharge summary for further details and instructions. Vinay Dan MD /[id number]
--- NOTE | 2018-08-19 12:21 | DISCH ---
DISCHARGE DIAGNOSES: Status post laparoscopic Matthew and repair of type 3 hiatal hernia, recurrence. SUMMARY OF HOSPITAL COURSE: A pleasant 32-year-old female who underwent the aforementioned procedures and this is now postoperative day 1. At discharge, she is passing gas. Her pain is well controlled. She has no nausea, vomiting, shortness of breath, or chest pain. Tolerating diet. Her vital signs were stable. FOLLOWUP: With Surgery in 7 to 14 days. DIET: Full-liquid diet until instructed otherwise. ACTIVITY: No lifting greater than 30 pounds x30 days. PAIN MEDICATIONS: Ibuprofen for pain. Enterprise as an additional pain management. ADDITIONAL CONSULTATIONS DURING THIS HOSPITALIZATION: None.
== END 2018-08-19 11:00 | disposition home or self-care (01) ==
LOC: JP.SDS 07:05 → JP.2SS 11:33
PROVIDERS: ADMIT Surgery; ATTEND Surgery
DX: T88.9XXA Complication of surgical and medical care, unspecified, initial encounter (principal); K44.9 Diaphragmatic hernia without obstruction or gangrene; K21.0 Gastro-esophageal reflux disease with esophagitis; F17.210 Nicotine dependence, cigarettes, uncomplicated; E66.3 Overweight; Z68.38 Body mass index [BMI] 38.0-38.9, adult; Z98.890 Other specified postprocedural states; Z79.899 Other long term (current) drug therapy; Z88.2 Allergy status to sulfonamides; Z88.5 Allergy status to narcotic agent
CPT/HCPCS: 36415; 43282; 64488; 74240; 80048; 85025; 96365; 96376; A9270; C1776; G0378; J0171; J0330; J0690; J1100; J1885; J2405; J2704; J2710; J2795; J3010; J3410; J3490; J7030; J7050; J7120; Q9967

== ENCOUNTER 2018-12-09 15:37 | Emergency (ER) | payer MEDICAID ==
[2018-12-09 17:40] VITALS: BP 159/74
[2018-12-09] MEDS ORDERED: LORazepam 1 MG Tab PO ONE (18:28)
--- NOTE | 2018-12-09 19:08 | EDM.PDOC ---
<Sander Delgado - Last Filed: 12/09/18 19:08> ED HPI GENERAL MEDICAL PROBLEM - General Chief Complaint: General Stated Complaint: CHEST PRESSURE/POSSIBLY ANXIETY RELATED Time Seen by Provider: 12/09/18 15:42 Middle Abdomen Pain Score (Numeric/FACES): 9 - Related Data Allergies Allergy/AdvReac Type Severity Reaction Status Date / Time tramadol Allergy Severe Seizure Verified 12/09/18 17:46 Sulfa (Sulfonamide Allergy Nausea and Verified 12/09/18 17:46 Antibiotics) Vomiting Home Meds: Home Meds [place] Carbonate [Eskalith CR] 900 mg PO BEDTIME 11/30/17 [History] Melatonin 5 mg PO BEDTIME 11/30/17 [History] Omeprazole 20 mg PO DAILY 04/16/18 [History] Adapalene [Differin 0.1% Crm] 1 film TOP DAILY 05/12/18 [History] Fluticasone Propionate [Flonase] 2 spray DRISS DAILY 05/12/18 [History] Minocycline [Minocin] 100 mg PO BID 05/12/18 [History] SUMAtriptan [Imitrex] 50 mg PO ASDIRECTED PRN 05/12/18 [History] cloNIDine [Catapres] 0.1 mg PO BEDTIME 05/12/18 [History] buPROPion [Wellbutrin] 75 mg PO BID 08/16/18 [History] Past Medical History - Past Health History Medical/Surgical History: Denies Medical/Surgical History HEENT History: Reports: None Cardiovascular History: Reports: None Respiratory History: Reports: None Gastrointestinal History: Reports: Cholelithiasis, GERD, Hiatal Hernia Genitourinary History: Reports: UTI, Recurrent [employer] History: Reports: , Spontaneous Musculoskeletal History: Reports: Fracture Other Musculoskeletal History: Toe finger Neurological History: Reports: Concussion, Headaches, Chronic, Migraines, Seizure Psychiatric History: Reports: ADD, Anxiety, Bipolar, Depression, Psych Hospitalization(s), PTSD, Suicide Attempt, Other (See Below) 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 Endocrine/Metabolic History: Reports: Obesity/BMI 30+ Hematologic History: Reports: None Immunologic History: Reports: None Oncologic (Cancer) History: Reports: None Dermatologic History: Reports: None - Infectious Disease History Infectious Disease History: Reports: Chicken Pox - Past Surgical History Head Surgeries/Procedures: Reports: None HEENT Surgical History: Reports: Other (See Below) Other HEENT Surgeries/Procedures: ear tubes as a child GI Surgical History: Reports: Cholecystectomy, EGD, Matthew Fundoplication Female Surgical History: Reports: Hysterectomy Endocrine Surgical History: Reports: None Neurological Surgical History: Reports: None Musculoskeletal Surgical History: Reports: None Dermatological Surgical History: Reports: None Social & Family History - Family History Family Medical History: Noncontributory - Tobacco Use Smoking Status *Q: Current Some Day Smoker Years of Tobacco use: 20 Packs/Tins Daily: 0.5 Used Tobacco, but Quit: No Second Hand Smoke Exposure: No - Caffeine Use Caffeine Use: Reports: Coffee, Soda, Tea - Recreational Drug Use Recreational Drug Use: No ED ROS GENERAL - Review of Systems Review Of Systems: See Below ED EXAM, GENERAL - Physical Exam Exam: See Below Course - Vital Signs Last Recorded V/S: Last Vital Signs Temp 37.3 C 12/09/18 17:49 Pulse 91 12/09/18 17:49 Resp 16 12/09/18 17:49 BP 159/74 H 12/09/18 17:49 Pulse Ox 98 12/09/18 17:49 - Orders/Labs/Meds Labs: Laboratory Tests 12/09/18 12/09/18 12/09/18 Range/Units 18:27 18:27 18:28 WBC 11.5 H (4.5-11.0) K/uL RBC 4.60 (3.30-5.50) M/uL Hgb 12.7 (12.0-15.0) g/dL Hct 40.5 (36.0-48.0) % MCV 88 (80-98) fL MCH 28 (27-31) pg MCHC 31 L (32-36) % Plt Count 289 (150-400) K/uL Neut % (Auto) 58 (36-66) % Lymph % (Auto) 33 (24-44) % [place] % (Auto) 7 H (2-6) % Eos % (Auto) 2 (2-4) % Baso % (Auto) 0 (0-1) % Sodium 139 L (140-148) mmol/L Potassium 4.0 (3.6-5.2) mmol/L Chloride 103 (100-108) mmol/L Carbon Dioxide 28 (21-32) mmol/L Anion Gap 12.0 (5.0-14.0) mmol/L BUN 11 (7-18) mg/dL Creatinine 1.1 H (0.6-1.0) mg/dL Est Cr Clr Drug Dosing 58.07 mL/min Estimated GFR (MDRD) 58 L (>60) Glucose 118 H (74-106) mg/dL Calcium 9.7 (8.5-10.1) mg/dL Total Bilirubin 0.1 L (0.2-1.0) mg/dL AST 20 (15-37) U/L ALT 46 D (12-78) U/L Alkaline Phosphatase 121 H (46-116) U/L Troponin I < 0.017 (0.000-0.056) ng/mL Total Protein 7.3 (6.4-8.2) g/dL Albumin 3.4 (3.4-5.0) g/dL Globulin 3.9 H (2.3-3.5) g/dL Albumin/Globulin Ratio 0.9 L (1.2-2.2) Amylase 61 (25-115) U/L Lipase 211 (73-393) U/L TSH, Ultra Sensitive 4.704 H (0.358-3.740) uIU/mL Urine Color Urine Appearance Urine pH (4.5-8.0) Ur Specific [place] (1.008-1.030) Urine Protein (NEGATIVE) mg/dL Urine Glucose (UA) (NEGATIVE) mg/dL Urine Ketones (NEGATIVE) mg/dL Urine Occult Blood (NEGATIVE) Urine Nitrite (NEGATIVE) Urine Bilirubin (NEGATIVE) Urine Urobilinogen (NORMAL) mg/dL Ur Leukocyte Esterase (NEGATIVE) Urine RBC (0-5) Urine WBC (0-5) Ur Epithelial Cells Amorphous Sediment Urine Bacteria Urine Mucus Urine Other 12/09/18 Range/Units 18:43 WBC (4.5-11.0) K/uL RBC (3.30-5.50) M/uL Hgb (12.0-15.0) g/dL Hct (36.0-48.0) % MCV (80-98) fL MCH (27-31) pg MCHC (32-36) % Plt Count (150-400) K/uL Neut % (Auto) (36-66) % Lymph % (Auto) (24-44) % [place] % (Auto) (2-6) % Eos % (Auto) (2-4) % Baso % (Auto) (0-1) % Sodium (140-148) mmol/L Potassium (3.6-5.2) mmol/L Chloride (100-108) mmol/L Carbon Dioxide (21-32) mmol/L Anion Gap (5.0-14.0) mmol/L BUN (7-18) mg/dL Creatinine (0.6-1.0) mg/dL Est Cr Clr Drug Dosing mL/min Estimated GFR (MDRD) (>60) Glucose (74-106) mg/dL Calcium (8.5-10.1) mg/dL Total Bilirubin (0.2-1.0) mg/dL AST (15-37) U/L ALT (12-78) U/L Alkaline Phosphatase (46-116) U/L Troponin I (0.000-0.056) ng/mL Total Protein (6.4-8.2) g/dL Albumin (3.4-5.0) g/dL Globulin (2.3-3.5) g/dL Albumin/Globulin Ratio (1.2-2.2) Amylase (25-115) U/L Lipase (73-393) U/L TSH, Ultra Sensitive (0.358-3.740) uIU/mL Urine Color [place] Urine Appearance Cloudy Urine pH 5.0 (4.5-8.0) Ur Specific [place] 1.020 (1.008-1.030) Urine Protein Negative (NEGATIVE) mg/dL Urine Glucose (UA) Normal (NEGATIVE) mg/dL Urine Ketones 15 H (NEGATIVE) mg/dL Urine Occult Blood Negative (NEGATIVE) Urine Nitrite Negative (NEGATIVE) Urine Bilirubin Moderate (NEGATIVE) Urine Urobilinogen Normal (NORMAL) mg/dL Ur Leukocyte Esterase Negative (NEGATIVE) Urine RBC 0-5 (0-5) Urine WBC 0-5 (0-5) Ur Epithelial Cells Moderate Amorphous Sediment Few Urine Bacteria Many Urine Mucus Few Urine Other See note Meds: Medications Discontinued Medications Generic Name Dose Route Start Last Admin Trade Name Freq PRN Reason Stop Dose Admin Lorazepam 1 mg 12/09/18 18:28 12/09/18 18:39 Ativan PO 12/09/18 18:29 1 mg ONETIME ONE Administration Departure - Departure Time of Disposition: 19:08 Disposition: Home, Self-Care 01 Clinical Impression: Chest pressure - Discharge Information *PRESCRIPTION DRUG MONITORING PROGRAM REVIEWED*: Not Applicable *COPY OF PRESCRIPTION DRUG MONITORING REPORT IN PATIENT BUSHRA: Not Applicable Instructions: Nonspecific Chest Pain, [id number] Referrals: Hoda Barillas CNM [Primary Care Provider] - Forms: ED Department Discharge Additional Instructions: Continue usual medications and cares. Have your doctor contacted [facility] to have records of this visit sent to them. Return here if feeling worse in anyway. <Ivonne Angeles - Last Filed: 12/11/18 22:09> ED HPI GENERAL MEDICAL PROBLEM - General Source of Information: Reports: Patient, Family (. same sex partner) History Limitations: Reports: No Limitations - History of Present Illness INITIAL COMMENTS - FREE TEXT/NARRATIVE: chief complaint: chest pain, may be having a anxiety attack, wants to be sure its not her heart. has epigastric pain that radiates to back. arms feel tingly. reports has history of panic and anxiety attacks. 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 denies any other illness. Onset: Today Duration: Constant Location: Reports: Chest, Abdomen, Radiates to (arms) Quality: Reports: Same as Previous Episode (similar to previous anxiety attacks. ) Improves with: Reports: None Worsens with: Reports: None, Other (reports recent heavy drinking 4 days ago.) Associated Symptoms: Reports: Other (epigastric pain radiates to mid back. ) Social & Family History - Living Situation & Occupation Living situation: Reports: (to her , lives in [place] by [place]. They are raising children together) ED ROS GENERAL - Review of Systems Review Of Systems: See Below Constitutional: Reports: Other (epigastric pain) HEENT: Reports: No Symptoms Respiratory: Reports: No Symptoms Cardiovascular: Reports: No Symptoms Endocrine: Reports: No Symptoms GI/Abdominal: Reports: Abdominal Pain (epigastric to mid back) : Reports: No Symptoms Musculoskeletal: Reports: Back Pain (mid back pain ) Skin: Reports: No Symptoms Neurological: Reports: No Symptoms Psychiatric: Reports: Anxiety Hematologic/Lymphatic: Reports: No Symptoms Immunologic: Reports: No Symptoms ED EXAM, GENERAL - Physical Exam Exam: See Below Exam Limited By: No Limitations General Appearance: Alert, WD/WN, No Apparent Distress Ears: Normal External Exam, Normal Canal, Hearing Grossly Normal, Normal TMs Ear Exam: Bilateral Ear: Auricle Normal, Canal Normal, TM normal Nose: Normal Inspection, Normal Mucosa, No Blood Throat/Mouth: Normal Inspection, Normal Lips, Normal Teeth, Normal Gums, Normal Oropharynx, Normal Voice, No Airway Compromise Head: Atraumatic, Normocephalic Neck: Normal Inspection, Supple, Non-Tender, Full Range of Motion Respiratory/Chest: No Respiratory Distress, Lungs Clear, Normal Breath Sounds, No Accessory Muscle Use, Chest Non-Tender Cardiovascular: Normal Peripheral Pulses, Regular Rate, Rhythm, No Edema, No Gallop, No JVD, No Murmur, No Rub Peripheral Pulses: 2+: Radial (L), Radial (R) GI/Abdominal: Normal Bowel Sounds, Soft, Non-Tender, No Organomegaly, No Distention, No Abnormal Bruit, No Mass (Female) Exam: Deferred Rectal (Female) Exam: Deferred Back Exam: Normal Inspection, Full Range of Motion, NT Extremities: Normal Inspection, Normal Range of Motion, Non-Tender, Normal Capillary Refill, No Pedal Edema Neurological: Alert, Oriented, CN II-XII Intact, Normal Cognition, Normal Gait, Normal Reflexes, No Motor/Sensory Deficits Psychiatric: Normal Affect, Normal Mood Skin Exam: Warm, Dry, Intact, Normal Color, No Rash Lymphatic: No Adenopathy Course - Re-Assessments/Exams Free Text/Narrative Re-Assessment/Exam: labs ordered medication: Ativan I mg po after labs drawn and received Ativan, requested to go home, will call with any abnormal lab reports, will follow up with Primary Care on Tuesday left stable and ambulatory. Departure - Discharge Information *PRESCRIPTION DRUG MONITORING PROGRAM REVIEWED*: Not Applicable *COPY OF PRESCRIPTION DRUG MONITORING REPORT IN PATIENT BUSHRA: Not Applicable
== END 2018-12-09 19:15 | disposition home or self-care (01) ==
LOC: JP.ED 15:37
DX: R07.89 Other chest pain (principal); E66.9 Obesity, unspecified; F17.210 Nicotine dependence, cigarettes, uncomplicated; Z90.49 Acquired absence of other specified parts of digestive tract; Z90.710 Acquired absence of both cervix and uterus; Z88.2 Allergy status to sulfonamides; Z88.5 Allergy status to narcotic agent; Z79.899 Other long term (current) drug therapy
CPT/HCPCS: 36415; 80053; 81001; 82150; 83690; 84443; 84484; 85025; 99284; A9270

== ENCOUNTER 2019-02-08 16:52 | Emergency (ER) | payer MEDICAID ==
[2019-02-08 17:15] VITALS: BP 135/102; PULSE 97
--- NOTE | 2019-02-08 18:15 | EDM.PDOC ---
ED HPI GENERAL MEDICAL PROBLEM - General Chief Complaint: Abdominal Pain Stated Complaint: LOWER ABD AND BACK PAIN Time Seen by Provider: 02/08/19 17:25 Source of Information: Reports: Patient History Limitations: Reports: No Limitations - History of Present Illness INITIAL COMMENTS - FREE TEXT/NARRATIVE: 33-year-old female with suprapubic tenderness and burning increasing over the past 48 hours. No dysuria or significant radiation to the back. No fevers or chills, no bowel changes. Pain seems to be very localized right at the top of the suprapubic bone. No recent trauma. She has had a hysterectomy. She has had a UTI in the past but this "feels different". Onset: Gradual Duration: Day(s): (2-3 days) Location: Reports: Abdomen (Suprapubic area) Worsens with: Reports: None Associated Symptoms: Reports: No Other Symptoms Lower Abdomen Pain Score (Numeric/FACES): 9 - Related Data Allergies Allergy/AdvReac Type Severity Reaction Status Date / Time tramadol Allergy Severe Seizure Verified 02/08/19 17:17 Sulfa (Sulfonamide Allergy Nausea and Verified 02/08/19 17:17 Antibiotics) Vomiting Home Meds: Home Meds [place] Carbonate [Eskalith CR] 900 mg PO BEDTIME 11/30/17 [History] Melatonin 5 mg PO BEDTIME 11/30/17 [History] Omeprazole 20 mg PO DAILY 04/16/18 [History] Adapalene [Differin 0.1% Crm] 1 film TOP DAILY 05/12/18 [History] Fluticasone Propionate [Flonase] 2 spray DRISS DAILY 05/12/18 [History] Minocycline [Minocin] 100 mg PO BID 05/12/18 [History] SUMAtriptan [Imitrex] 50 mg PO ASDIRECTED PRN 05/12/18 [History] cloNIDine [Catapres] 0.1 mg PO BEDTIME 05/12/18 [History] DULoxetine [Cymbalta] 60 mg PO DAILY 02/08/19 [History] Past Medical History - Past Health History Medical/Surgical History: Denies Medical/Surgical History HEENT History: Reports: None Cardiovascular History: Reports: None Respiratory History: Reports: None Gastrointestinal History: Reports: Cholelithiasis, GERD, Hiatal Hernia Genitourinary History: Reports: UTI, Recurrent [employer] History: Reports: , Spontaneous Musculoskeletal History: Reports: Fracture Other Musculoskeletal History: Toe finger Neurological History: Reports: Concussion, Headaches, Chronic, Migraines, Seizure Psychiatric History: Reports: ADD, Anxiety, Bipolar, Depression, Psych Hospitalization(s), PTSD, Suicide Attempt, Other (See Below) Other Psychiatric History: [facility] personality disorder Endocrine/Metabolic History: Reports: Obesity/BMI 30+ Hematologic History: Reports: None Immunologic History: Reports: None Oncologic (Cancer) History: Reports: None Dermatologic History: Reports: None - Infectious Disease History Infectious Disease History: Reports: Chicken Pox - Past Surgical History Head Surgeries/Procedures: Reports: None HEENT Surgical History: Reports: Other (See Below) Other HEENT Surgeries/Procedures: ear tubes as a child GI Surgical History: Reports: Cholecystectomy, EGD, Matthew Fundoplication Female Surgical History: Reports: Hysterectomy Endocrine Surgical History: Reports: None Neurological Surgical History: Reports: None Musculoskeletal Surgical History: Reports: None Dermatological Surgical History: Reports: None Social & Family History - Family History Family Medical History: Noncontributory - Tobacco Use Smoking Status *Q: Current Some Day Smoker Years of Tobacco use: 22 Packs/Tins Daily: 0 Used Tobacco, but Quit: No Second Hand Smoke Exposure: No - Caffeine Use Caffeine Use: Reports: Coffee, Soda - Recreational Drug Use Recreational Drug Use: No - Living Situation & Occupation Living situation: Reports: (to her , lives in [place] by [place]. They are raising children together) ED ROS GENERAL - Review of Systems Review Of Systems: See Below Constitutional: Denies: Fever, Chills HEENT: Reports: No Symptoms Respiratory: Denies: Shortness of Breath Cardiovascular: Denies: Chest Pain GI/Abdominal: Reports: Abdominal Pain. Denies: Constipation, Diarrhea, Nausea, Vomiting : Reports: No Symptoms Skin: Denies: Rash (No rash over painful area) Neurological: Reports: No Symptoms ED EXAM, GI/ABD - Physical Exam Exam: See Below Exam Limited By: No Limitations General Appearance: Alert, No Apparent Distress Head: Atraumatic Respiratory/Chest: No Respiratory Distress, Lungs Clear Cardiovascular: Regular Rate, Rhythm GI/Abdominal Exam: Normal Bowel Sounds, Soft, Other (Some discomfort to palpation just above the pelvis and the suprapubic area. No real guarding and no peritoneal irritation, no rebound tenderness) Neurological: Alert, Oriented Psychiatric: Normal Affect, Normal Mood Skin Exam: Warm, Dry Course - Vital Signs Last Recorded V/S: Last Vital Signs Temp 97.5 F 02/08/19 17:15 Pulse 97 02/08/19 17:15 Resp 16 02/08/19 17:15 BP 135/102 H 02/08/19 17:15 Pulse Ox 98 02/08/19 17:15 - Orders/Labs/Meds Labs: Laboratory Tests 02/08/19 02/08/19 02/08/19 Range/Units 17:30 17:30 17:30 WBC 9.1 (4.5-11.0) K/uL RBC 4.71 (3.30-5.50) M/uL Hgb 13.3 (12.0-15.0) g/dL Hct 41.1 (36.0-48.0) % MCV 87 (80-98) fL MCH 28 (27-31) pg MCHC 32 (32-36) % Plt Count 312 (150-400) K/uL Neut % (Auto) 56 (36-66) % Lymph % (Auto) 34 (24-44) % [place] % (Auto) 8 H (2-6) % Eos % (Auto) 2 (2-4) % Baso % (Auto) 1 (0-1) % Sodium 141 (140-148) mmol/L Potassium 4.4 (3.6-5.2) mmol/L Chloride 106 (100-108) mmol/L Carbon Dioxide 27 (21-32) mmol/L Anion Gap 8.2 (5.0-14.0) mmol/L BUN 11 (7-18) mg/dL Creatinine 0.8 (0.6-1.0) mg/dL Est Cr Clr Drug Dosing 79.11 mL/min Estimated GFR (MDRD) > 60 (>60) Glucose 93 (74-106) mg/dL Calcium 9.5 (8.5-10.1) mg/dL Urine Color Yellow Urine Appearance Cloudy Urine pH 6.0 (4.5-8.0) Ur Specific [place] 1.015 (1.008-1.030) Urine Protein Trace (NEGATIVE) mg/dL Urine Glucose (UA) Normal (NEGATIVE) mg/dL Urine Ketones Negative (NEGATIVE) mg/dL Urine Occult Blood Negative (NEGATIVE) Urine Nitrite Negative (NEGATIVE) Urine Bilirubin Small (NEGATIVE) Urine Urobilinogen 1 (NORMAL) mg/dL Ur Leukocyte Esterase Negative (NEGATIVE) Urine RBC 0-5 (0-5) Urine WBC 0-5 (0-5) Ur Epithelial Cells Moderate Amorphous Sediment Few Urine Bacteria Many Urine Mucus Few Meds: Medications Discontinued Medications Generic Name Dose Route Start Last Admin Trade Name Carlos Enrique PRN Reason Stop Dose Admin Ketorolac Tromethamine 60 mg 02/08/19 18:17 02/08/19 18:21 Toradol IM 02/08/19 18:18 60 mg ONETIME ONE Administration - Re-Assessments/Exams Free Text/Narrative Re-Assessment/Exam: 02/09/19 07:07 A CBC, CMP and UA were obtained. These were all normal. I recommended a CT scan to further evaluate this to assess for renal stones or other unusual sources of pain but she elected to recheck with her primary provider in the next few days if not improving. She was given 60 mg of IM Toradol prior to discharge. She will return if worsening such as fever or increased pain. Departure - Departure Time of Disposition: 18:25 Disposition: Home, Self-Care 01 Clinical Impression: Abdominal pain Qualifiers: Abdominal location: lower abdomen, unspecified Qualified Code(s): R10.30 - Lower abdominal pain, unspecified - Discharge Information Instructions: Abdominal Pain, Adult Referrals: Hoda Barillas CNM [Primary Care Provider] - Forms: ED Department Discharge Care Plan Goals: Call tomorrow for a clinic appointment if you are not improving satisfactorily. Increase activity and diet as tolerated, Tylenol or ibuprofen for pain. Return sooner if worsening such as fever or worsening pain.
[2019-02-08] MEDS ORDERED: Ketorolac 60 MG/2 ML SDV IM ONE (18:17)
== END 2019-02-08 18:25 | disposition home or self-care (01) ==
LOC: JP.ED 16:52
DX: R10.30 Lower abdominal pain, unspecified (principal); F17.210 Nicotine dependence, cigarettes, uncomplicated; K21.9 Gastro-esophageal reflux disease without esophagitis; F31.9 Bipolar disorder, unspecified; F32.9 Major depressive disorder, single episode, unspecified; Z79.899 Other long term (current) drug therapy; Z88.6 Allergy status to analgesic agent; Z88.2 Allergy status to sulfonamides
CPT/HCPCS: 36415; 80048; 81001; 85025; 96372; 99284; J1885

== ENCOUNTER 2019-07-25 03:15 | Day surgery (SDC) | payer MEDICAID ==
[2019-07-25] MEDS ORDERED: Ketorolac 60 MG/2 ML SDV IM ONE (03:39)
[2019-07-25] MEDS ORDERED: Ondansetron 4 MG/2 ML SDV IVPUSH ONE ×2 (03:42→07:45)
[2019-07-25] MEDS ORDERED: Ondansetron 4 MG Tab.DIS PO ONE (03:45)
--- NOTE | 2019-07-25 03:49 | EDM.PDOC ---
<Isaias Flynn G - Last Filed: 07/25/19 06:32> ED HPI GENERAL MEDICAL PROBLEM - General Chief Complaint: Flank Pain Stated Complaint: RIGHT SIDE BACK/ABD PAIN Time Seen by Provider: 07/25/19 03:35 Source of Information: Reports: Patient, Old Records History Limitations: Reports: No Limitations - History of Present Illness INITIAL COMMENTS - FREE TEXT/NARRATIVE: 33 yo female here with R flank pain that began around 8 pm or 7.5 hrs ago. She has has nausea and vomited once. No fever. No relief with acetaminophen. No dysuria or gross hematuria. The pain radiates from the R flank area to the bladder area. Onset: Sudden Onset Date: 07/24/19 Onset Time: 20:00 Duration: Hour(s):, Waxing/Waning Location: Reports: Back (R flank) Quality: Reports: Pressure Severity: Severe Improves with: Reports: None Worsens with: Reports: Other (unknown) Context: Reports: Other (see HPI) Associated Symptoms: Reports: Nausea/Vomiting. Denies: Fever/Chills Treatments LICENSING SPECIALIST: Reports: Acetaminophen Right Flank Pain Score (Numeric/FACES): 10 - Related Data Allergies Allergy/AdvReac Type Severity Reaction Status Date / Time tramadol Allergy Severe Seizure Verified 02/08/19 17:17 Sulfa (Sulfonamide Allergy Nausea and Verified 02/08/19 17:17 Antibiotics) Vomiting Home Meds: Home Meds Coral Carbonate [Eskalith CR] 900 mg PO BEDTIME 11/30/17 [History] Melatonin 5 mg PO BEDTIME 11/30/17 [History] Omeprazole 20 mg PO DAILY 04/16/18 [History] Fluticasone Propionate [Flonase] 2 spray DRISS DAILY 05/12/18 [History] SUMAtriptan [Imitrex] 50 mg PO ASDIRECTED PRN 05/12/18 [History] Lisdexamfetamine [Vyvanse] 30 mg PO DAILY 07/25/19 [History] Past Medical History - Past Health History Medical/Surgical History: Denies Medical/Surgical History HEENT History: Reports: Otitis Media Cardiovascular History: Reports: None Respiratory History: Reports: None Gastrointestinal History: Reports: Cholelithiasis, GERD, Hiatal Hernia Genitourinary History: Reports: UTI, Recurrent CNC TECHNICIAN History: Reports: , Spontaneous Musculoskeletal History: Reports: Fracture Other Musculoskeletal History: Toe finger Neurological History: Reports: Concussion, Headaches, Chronic, Migraines, Seizure Psychiatric History: Reports: ADD, Anxiety, Bipolar, Depression, Psych Hospitalization(s), PTSD, Suicide Attempt, Other (See Below) 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 Endocrine/Metabolic History: Reports: Obesity/BMI 30+ Hematologic History: Reports: None Immunologic History: Reports: None Oncologic (Cancer) History: Reports: None Dermatologic History: Reports: None - Infectious Disease History Infectious Disease History: Reports: Chicken Pox - Past Surgical History Head Surgeries/Procedures: Reports: None HEENT Surgical History: Reports: Other (See Below) Other HEENT Surgeries/Procedures: ear tubes as a child GI Surgical History: Reports: Cholecystectomy, EGD, Matthew Fundoplication Female Surgical History: Reports: Hysterectomy Endocrine Surgical History: Reports: None Neurological Surgical History: Reports: None Musculoskeletal Surgical History: Reports: None Dermatological Surgical History: Reports: None Social & Family History - Family History Family Medical History: Noncontributory - Tobacco Use Smoking Status *Q: Current Every Day Smoker Years of Tobacco use: 20 Packs/Tins Daily: 0.2 - Caffeine Use Caffeine Use: Reports: Coffee, Soda, Tea - Recreational Drug Use Recreational Drug Use: No - Living Situation & Occupation Living situation: Reports: (to her , lives in [place] by [place]. They are raising children together) ED ROS GENERAL - Review of Systems Review Of Systems: See Below Constitutional: Reports: No Symptoms HEENT: Reports: No Symptoms Respiratory: Reports: No Symptoms Cardiovascular: Reports: No Symptoms GI/Abdominal: Reports: Nausea, Vomiting : Reports: Flank Pain (right) Musculoskeletal: Reports: No Symptoms Skin: Reports: No Symptoms Neurological: Reports: No Symptoms ED EXAM,LOWER BACK PAIN/INJURY - Physical Exam Exam: See Below Exam Limited By: No Limitations General Appearance: Alert, WD/WN, Mild Distress Eye Exam: Bilateral Eye: Normal Inspection Ears: Normal External Exam, Normal Canal, Hearing Grossly Normal Nose: Normal Inspection, No Blood Throat/Mouth: Normal Inspection, Normal Lips, Normal Oropharynx, Normal Voice, No Airway Compromise Head: Atraumatic, Normocephalic Neck: Normal Inspection Respiratory/Chest: No Respiratory Distress, Lungs Clear, Normal Breath Sounds, No Accessory Muscle Use Cardiovascular: Regular Rate, Rhythm, No Edema GI/Abdominal: Normal Bowel Sounds, Soft, Non-Tender, No Distention. No: Distended Back Exam: Normal Inspection. No: CVA Tenderness (R), CVA Tenderness (L) Extremities: Normal Inspection, Normal Range of Motion, Non-Tender, No Pedal Edema Neurological: Alert, Normal Mood/Affect, CN II-XII Intact, No Motor/Sensory Deficits, Oriented x 3 Psychiatric: Normal Affect, Normal Mood Skin Exam: Warm, Dry, Intact, Normal Color, No Rash Course - Vital Signs Last Recorded V/S: Last Vital Signs Temp 37.2 C 07/25/19 05:09 Pulse 86 07/25/19 05:09 Resp 14 07/25/19 05:09 BP 119/71 07/25/19 05:09 Pulse Ox 96 07/25/19 03:36 - Orders/Labs/Meds Orders: Active Orders 24 hr Category Date Time Status Pelvis Non OB Ltd [US] Stat Exams 07/25/19 06:36 Taken HYDROmorphone [Dilaudid] Med 07/25/19 07:46 Once 1 mg IVPUSH ONETIME ONE Ondansetron [Zofran] Med 07/25/19 07:45 Once 4 mg IVPUSH ONETIME ONE Sodium Chloride 0.9% [Normal Saline] 1,000 ml Med 07/25/19 07:45 Ordered IV ASDIRECTED Medication Orders Hydromorphone HCl (Dilaudid) 1 mg IVPUSH ONETIME ONE Stop: 07/25/19 07:47 Sodium Chloride (Normal Saline) 1,000 mls @ 999 mls/hr IV ASDIRECTED [facility]OR Ondansetron HCl (Zofran) 4 mg IVPUSH ONETIME ONE Stop: 07/25/19 07:46 Labs: Laboratory Tests 07/25/19 Range/Units 03:59 Urine Color Yellow (YELLOW) Urine Appearance Clear (CLEAR) Urine pH 5.5 (5.0-8.0) Ur Specific Cushing 1.020 (1.008-1.030) Urine Protein Negative (NEGATIVE) mg/dL Urine Glucose (UA) Negative (NEGATIVE) mg/dL Urine Ketones Negative (NEGATIVE) mg/dL Urine Occult Blood Negative (NEGATIVE) Urine Nitrite Negative (NEGATIVE) Urine Bilirubin Negative (NEGATIVE) Urine Urobilinogen 0.2 (0.2-1.0) EU/dL Ur Leukocyte Esterase Negative (NEGATIVE) Urine RBC 0-5 (0-5) Urine WBC 0-5 (0-5) Ur Epithelial Cells Few Amorphous Sediment Not seen Urine Bacteria Few Urine Mucus Not seen Meds: Medications Generic Name Dose Route Start Last Admin Trade Name Freq PRN Reason Stop Dose Admin Hydromorphone HCl 1 mg 07/25/19 07:46 Dilaudid IVPUSH 07/25/19 07:47 ONETIME ONE Sodium Chloride 1,000 mls @ 999 mls/hr 07/25/19 07:45 Normal Saline IV ASDIRECTED [facility] Ondansetron HCl 4 mg 07/25/19 07:45 Zofran IVPUSH 07/25/19 07:46 ONETIME ONE Discontinued Medications Generic Name Dose Route Start Last Admin Trade Name Freq PRN Reason Stop Dose Admin Ketorolac Tromethamine 60 mg 07/25/19 03:39 07/25/19 03:49 Toradol IM 07/25/19 03:40 60 mg ONETIME ONE Administration Ondansetron HCl 4 mg 07/25/19 03:42 07/25/19 03:49 Zofran IVPUSH 07/25/19 03:43 Not Given ONETIME ONE Ondansetron HCl 4 mg 07/25/19 03:45 07/25/19 03:49 Zofran Odt PO 07/25/19 03:46 4 mg ONETIME ONE Administration Oxycodone/Acetaminophen 1 tab 07/25/19 06:42 07/25/19 06:50 Percocet 325-5 Mg PO 1 tab ONETIME PRN Administration Abdominal Pain - Radiology Interpretation Free Text/Narrative:: CT abd/pelvis without contrast- IMPRESSION: 1. Abnormal appearing enlarged right ovary with multiple cystic structures within it worrisome for a torsion. Recommend a pelvic ultrasound to further evaluate this. 2. Status post hysterectomy. 3. Small amount of free fluid in the pelvis. 4. Status post cholecystectomy. Evidence of previous surgery at the gastroesophageal junction. 5. No kidney or ureteral stone. No hydronephrosis. Dictated by Tony Cai MD @ 07/25/2019 6:08:[address] Results Date: 07/25/19 CT Results Time: 06:25 Departure - Departure Disposition: Home, Self-Care 01 Clinical Impression: Torsion of right ovary, Complex cyst of right ovary - Discharge Information Referrals: Hoda Barillas CNM [Primary Care Provider] - Forms: ED Department Discharge Care Plan Goals: admit to Dr Fairbanks. Sepsis Event Note - Evaluation Sepsis Screening Result: No Definite Risk - Focused Exam Vital Signs: Vital Signs Temp Pulse Resp BP Pulse Ox 07/25/19 05:09 37.2 C 86 14 119/71 07/25/19 03:36 37.4 C 105 H 20 150/107 H 96 Date Exam was Performed: 07/25/19 Time Exam was Performed: 06:32 - My Orders Last 24 Hours: My Active Orders 07/25/19 07:45 Ondansetron [Zofran] 4 mg IVPUSH ONETIME ONE Sodium Chloride 0.9% [Normal Saline] 1,000 ml IV ASDIRECTED 07/25/19 07:46 HYDROmorphone [Dilaudid] 1 mg IVPUSH ONETIME ONE - Assessment/Plan Last 24 Hours: My Active Orders 07/25/19 07:45 Ondansetron [Zofran] 4 mg IVPUSH ONETIME ONE Sodium Chloride 0.9% [Normal Saline] 1,000 ml IV ASDIRECTED 07/25/19 07:46 HYDROmorphone [Dilaudid] 1 mg IVPUSH ONETIME ONE <Lynnette Shaffer - Last Filed: 07/25/19 07:49> Course - Re-Assessments/Exams Free Text/Narrative Re-Assessment/Exam: 07/25/19 07:47 pt had a US which revealed no blood flow to the rt ovary. Pt has a complex cyst in the rt ovary. The pt hasd had a hysterectomy. Departure - Departure Time of Disposition: 07:48 Condition: Fair Sepsis Event Note - Focused Exam Date Exam was Performed: 07/25/19 Time Exam was Performed: 07:47
--- NOTE | 2019-07-25 06:10 | CRLCT ---
INDICATION: Right flank pain. TECHNIQUE: Multiple axial images were obtained from the diaphragm to symphysis pubis without contrast. Sagittal and coronal re-formatted images were obtained. COMPARISON: 01/26/2013. FINDINGS: There are multiple stable pulmonary nodules in the visualized portion of the lung bases, largest in the left for lobe along the pleura measuring 0.8 cm consistent with benign etiology. There are postoperative changes at the gastroesophageal junction. There are surgical clips in the gallbladder fossa consistent with a previous cholecystectomy. The liver, spleen, pancreas and adrenal glands are of unremarkable nonenhanced CT appearance. There is no stone identified in the kidneys or hydronephrosis. There is no stone seen in the ureters. There is no evidence of a bowel obstruction. In the right lower quadrant there is a soft tissue structure measuring 5.5 cm in AP dimension by 3.3 cm transition by 4.3 cm craniocaudal dimension. There is the Appearance of multiple cystic areas within this. This could be enlarged right ovary. A torsion cannot be excluded. The uterus is surgically absent. There is a small amount of free fluid in the pelvis. The dominant throwing caliber. There is no adenopathy. IMPRESSION: 1. Abnormal appearing enlarged right ovary with multiple cystic structures within it worrisome for a torsion. Recommend a pelvic ultrasound to further evaluate this. 2. Status post hysterectomy. 3. Small amount of free fluid in the pelvis. 4. Status post cholecystectomy. Evidence of previous surgery at the gastroesophageal junction. 5. No kidney or ureteral stone. No hydronephrosis. Dictated by Tony Cai MD @ 07/25/2019 6:08:35 AM Please note that all CT scans at this facility use dose modulation, iterative reconstruction, and/or weight-based dosing when appropriate to reduce radiation dose to as low as reasonably achievable. Dictated by: Tony Cai MD @ 07/25/2019 06:09:14 (Electronically Signed)
[2019-07-25] MEDS ORDERED: Acetaminophen/oxyCODONE 325-5 MG Tab PO PRN (06:42)
[2019-07-25] MEDS ORDERED: Sodium Chloride 0.9% 1,000 ML IV SCH (07:45)
[2019-07-25] MEDS ORDERED: HYDROmorphone 1 MG/ML Syringe IVPUSH ONE (07:46)
[2019-07-25] MEDS ORDERED: Bupivacaine 0.5%/EPINEPHrine 1:200,000 50 ML MDV ONE (08:09)
[2019-07-25] MEDS ORDERED: Meropenem 500 MG SDV ONE (08:09)
[2019-07-25] MEDS ORDERED: Rocuronium 50 MG/5 ML Vial ONE (08:28)
[2019-07-25] MEDS ORDERED: Succinylcholine 200 MG/10 ML MDV ONE (08:28)
[2019-07-25] MEDS ORDERED: Neostigmine Methylsulfate 1 MG/ML 5 ML Syringe ONE (08:28)
[2019-07-25] MEDS ORDERED: Propofol 200 MG/20 ML SDV ONE (08:28)
[2019-07-25] MEDS ORDERED: Dexamethasone 4 MG/ML SDV ONE (08:28)
[2019-07-25] MEDS ORDERED: Glycopyrrolate 0.2 MG/ML 5 ML MDV ONE (08:28)
[2019-07-25] MEDS ORDERED: Ondansetron 4 MG/2 ML SDV ONE (08:28)
[2019-07-25] MEDS ORDERED: fentaNYL 250 MCG/5 ML SDV ONE (08:28)
[2019-07-25] MEDS ORDERED: Midazolam 1 MG/ML 2 ML SDV ONE (08:28)
[2019-07-25] MEDS ORDERED: cefOXitin 2 GM in Sodium Chloride 0.9% 50 ML IV ONE (08:30)
[2019-07-25] MEDS ORDERED: Dextrose 5%-Lactated Ringers 1,000 ML IV SCH (08:30)
[2019-07-25] MEDS ORDERED: Acetaminophen 500 MG Tab PO ONE (08:30)
--- NOTE | 2019-07-25 08:39 | CRLUS ---
Indication: Rule out torsion right ovary. Technique: Transabdominal ultrasound of the pelvis was performed. Comparison: CT scan dated 07/25/2019. Findings: On transabdominal ultrasound, the right ovary appears to be somewhat heterogeneous in echotexture measuring 3.7 x 4.1 x 5.5 cm in size. Only a very minimal amount of venous flow is identified. No arterial blood flow is identified. The left ovary is not visualized. The patient has had a hysterectomy. No uterus is identified. No free fluid is identified within the pelvis. Impression: Findings worrisome for torsion of the right ovary. When the ER was called, this patient had already been sent to the OR Dictated by Lilian Trevino MD @ Jul 25 2019 8:34AM Signed by Dr. Lilian Trevino @ Jul 25 2019 8:38AM
[2019-07-25] MEDS ORDERED: Ketamine 500 MG/5 ML MDV IV SCH (09:00)
[2019-07-25] MEDS ORDERED: Sugammadex Sodium 200 MG/2 ML VIAL ONE (09:20)
[2019-07-25] MEDS ORDERED: HYDROmorphone 1 MG/ML Syringe IV PRN (10:44)
[2019-07-25] MEDS ORDERED: HYDROmorphone 0.5 MG/0.5 ML Syringe IVPUSH PRN (10:44)
[2019-07-25] MEDS ORDERED: Ondansetron 4 MG/2 ML SDV IVPUSH PRN (10:45)
[2019-07-25] MEDS ORDERED: hydrOXYzine HCL 100 MG/2 ML SDV IM PRN (10:45)
[2019-07-25] MEDS ORDERED: SUMAtriptan 50 MG Tab PO PRN (10:49)
[2019-07-25] MEDS ORDERED: Melatonin 3 MG Tab PO PRN (10:50)
[2019-07-25] MEDS ORDERED: Fluticasone Propionate Nasal Spray 16 GM Bottle NASBOTH PRN (10:54)
[2019-07-25] MEDS: HYDROmorphone 2 MG Tab PO PRN ×3 (11:11→20:16)
[2019-07-25] MEDS: Amoxicillin/Clavulanate K 875-125 MG Tab PO SCH (16:01)
[2019-07-25] MEDS: Acetaminophen 500 MG Tab PO SCH (16:01)
[2019-07-25] MEDS ORDERED: Lithium Carbonate 300 MG Tab.ER PO SCH (21:00)
[2019-07-26] MEDS: Acetaminophen 500 MG Tab PO SCH ×2 (04:47)
[2019-07-26] MEDS: HYDROmorphone 2 MG Tab PO PRN (06:45)
[2019-07-26] MEDS ORDERED: Pantoprazole 40 MG Tab.CR PO SCH (07:30)
[2019-07-26 07:33] VITALS: BP 102/29; PULSE 105
[2019-07-26] MEDS: Amoxicillin/Clavulanate K 875-125 MG Tab PO SCH (07:37)
[2019-07-26] MEDS ORDERED: VYVANSE 30 MG PO SCH (09:00)
--- NOTE | 2019-07-26 16:14 | DISCH ---
ADMISSION DIAGNOSES: 1. Right side back and abdominal pain. 2. Gastroesophageal reflux disease. 3. Chronic headaches. 4. Attention deficit disorder. 5. Anxiety. 6. Bipolar. 7. Depression. DISCHARGE DIAGNOSES: 1. Diagnostic laparoscopy with right salpingo-oophorectomy. 2. Evacuation of pelvic hematoma. 3. Pelvic endometriosis. 4. Fixation of left ovary to pelvic sidewall for torsion and of right ovary and tubes. 5. Focal pelvic endometriosis. 6. Hypermobile left ovary at risk of torsion. 7. Pelvic hematoma. HISTORY: Ivette Tran is a pleasant 33-year-old female who presented to the emergency room with right side back and abdominal pain. After preoperative evaluation and discussion of possible risks and possible complications, she wished to proceed with surgical procedure. HOSPITAL COURSE: Ivette had her surgery on 07/25/2019. She had no operative complications. On postoperative day #1, her activity was good. She was tolerating the diet well. Pain was controlled. Vital signs stable. She was able to be discharged to home. PHYSICAL EXAMINATION: GENERAL: Ivette is a pleasant 33-year-old female. VITAL SIGNS: Height is 5 feet 2 inches. Weight is 216 pounds. TPR is 97.5, 105, 16, blood pressure 102/29 and prior to that it was 105/55. HEENT: Negative. NECK: Supple. HEART: Regular rate and rhythm. LUNGS: Clear. ABDOMEN: Dressings dry and intact. Abdominal binder is on. EXTREMITIES: Without peripheral edema. DISPOSITION: Discharged to home. CONDITION: Stable and improving. FOLLOWUP: Followup appointment with Lilibeth Pulido PA-C at on 08/02/2019 at 10 a.m. NEW PRESCRIPTIONS: 1. Tylenol 1000 mg every 6 hours p.r.n. pain. 2. Dilaudid 2 mg every 6 hours p.r.n. pain #28 and she is to resume her home medications. DIET: Regular diet. Drink 8 to 10 glasses of water a day. ACTIVITY: No lifting greater than 10 pounds for 2 weeks. Walk at least 6 times daily inside your home. Keep operative site clean and dry. May shower. Wear abdominal binder for 2 weeks and then as tolerated. Notify provider if any fever, increased pain, nausea, or vomiting. SPECIAL INSTRUCTIONS: 1. Use incentive spirometer 10 times every hour while awake for 1 week. 2. Driving. Do not drive for 1 week and while on pain medication.
--- NOTE | 2019-08-01 12:32 | OR ---
DATE OF PROCEDURE: 07/25/2019 SURGEON: Landen Fairbanks MD PREOPERATIVE DIAGNOSIS: Torsion, right ovary. POSTOPERATIVE DIAGNOSES: 1. Torsion and necrosis of right ovary and uterine tube. 2. Focal pelvic endometriosis. 3. Pelvic hematoma with localized peritonitis. 4. Hypermobile left ovary at risk for torsion. OPERATIVE PROCEDURES: Diagnostic laparoscopy with: 1. Right salpingo-oophorectomy (80269). 2. Evacuation of hematoma associated with pelvic peritonitis (18265). 3. Fulguration of pelvic endometriosis (76015). 4. Fixation of left ovary to pelvic sidewall ([id number]). ANESTHESIA: General. INDICATIONS FOR PROCEDURE: This is a 33-year-old, presenting with some ongoing discomfort in the lower abdomen, and workup in the emergency room showed a torsion of the right ovary. This had normal blood flow within it by ultrasound. Plan is to proceed with diagnostic laparoscopy with probable right salpingo-oophorectomy. The patient is status post hysterectomy, so issues of fertility are not at play. She would like to preserve the left ovary so as to avoid early surgical menopause, and as discussed with the patient, we will evaluate the left ovary and fix that in position if felt to be warranted. Otherwise, in all likelihood, we would remove the right ovary and uterine tube. Potential risks including bleeding, infection, injury to underlying viscera, possibility that the left ovary at some point may become nonfunctional resulting in early menopause were all reviewed with the patient and she wishes to proceed. DETAILS OF PROCEDURE: The patient was taken to the operating room, where after general endotracheal anesthesia was induced, a Nuno catheter was inserted, and the abdomen was prepped and draped. In the area slightly superior and to the left of the umbilicus, a previous trocar incision site was re-used and the peritoneal cavity entered under direct vision with an Optiview trocar, inflated to 15 mmHg pressure with CO2. Laparoscope was then reinserted. No underlying trocar insertion site injuries were seen. Bilateral transversus abdominis plane blocks were then placed, and at that point, a 12 mm trocar was placed in the right upper quadrant, as well as left lower quadrant. Upon viewing the pelvis, the patient had a large pelvic hematoma. This was associated with peritonitis in the area where it had occupied, and the hematoma was evacuated at this point. The patient had an obvious torsion and necrosis of the right ovary and a portion of the uterine tube and some focal pelvic endometriosis along the pelvic sidewalls and over the urinary bladder. After evacuation of the hematoma, the areas of endometriosis were ablated with electrocautery. At that point, the ovary and the tube were then excised by means of a MOLLY black load, flush against the abdominal pelvic wall and the specimen was placed into the specimen container and retrieved through the left lower quadrant trocar site which needed to be enlarged somewhat for specimen removal. At this point, no further problems were noted. No bleeding was noted from the staple line and the left ovary was examined and found to be fairly normal in appearance. It did appear to be somewhat hypermobile and it was therefore fixed up against the pelvic sidewall with a 3-0 Vicryl stitch. At that point, no further problems were noted. Trocars were removed and the peritoneal cavity deflated. The incision was closed at the fascia level with 0 Vicryl stitch and the skin with 4-0 Vicryl skin stitch. The patient was taken to the recovery room in satisfactory condition. Landen Fairbanks MD /[id number] [email or web address]
== END 2019-07-26 09:05 | disposition home or self-care (01) ==
LOC: JP.ED 03:15 → JP.SDS 08:04 → JP.MS 09:50 → JP.SDS 07-26 09:05
PROVIDERS: ATTEND Surgery
DX: N83.53 Torsion of ovary, ovarian pedicle and fallopian tube (principal); N83.291 Other ovarian cyst, right side; N80.3 Endometriosis of pelvic peritoneum; N80.8 Other endometriosis; N73.5 Female pelvic peritonitis, unspecified; F41.9 Anxiety disorder, unspecified; F31.9 Bipolar disorder, unspecified; F98.8 Other specified behavioral and emotional disorders with onset usually occurring in childhood and adolescence; R51 Headache; K21.9 Gastro-esophageal reflux disease without esophagitis; F17.210 Nicotine dependence, cigarettes, uncomplicated; E66.9 Obesity, unspecified; Z68.39 Body mass index [BMI] 39.0-39.9, adult; Z88.5 Allergy status to narcotic agent; Z88.2 Allergy status to sulfonamides; Z79.899 Other long term (current) drug therapy; Z90.710 Acquired absence of both cervix and uterus; Z90.49 Acquired absence of other specified parts of digestive tract
CPT/HCPCS: 36415; 74176; 76857; 80053; 81001; 85025; 88305; 96372; 96374; 96375; 99285-25; A9270-GY; J0171; J0330; J0694; J1100; J1170; J1885; J2185; J2250; J2405; J2704; J2710; J2795; J3010; J3410; J3490; J7030; J7050; J7121

== ENCOUNTER 2020-05-14 09:14 | Emergency (ER) | payer MEDICAID ==
[2020-05-14 09:35] VITALS: BP 141/94; PULSE 85
[2020-05-14] MEDS ORDERED: Ondansetron 4 MG Tab.DIS PO ONE (10:05)
[2020-05-14] MEDS ORDERED: Ketorolac 60 MG/2 ML SDV IM ONE (10:05)
--- NOTE | 2020-05-14 10:09 | EDM.PDOC ---
ED HPI GENERAL MEDICAL PROBLEM - General Chief Complaint: Head Injury Stated Complaint: FELL HIT HEAD AND TAILBONE Time Seen by Provider: 05/14/20 09:50 Source of Information: Reports: Patient History Limitations: Reports: No Limitations - History of Present Illness INITIAL COMMENTS - FREE TEXT/NARRATIVE: [id number] female slipped on the ice 2 hours ago, landing on her tailbone area and hitting the back of her head on the ground. No loss of consciousness but she has some soreness in her lower back and sacrum, some dizziness, light sensitivity and mild nausea. No loss of consciousness or amnesia of the event. She has a history of several concussions the past. Onset: Sudden Duration: Hour(s): (2 hours ago) Location: Reports: Head, Pelvis (Sacral area) Associated Symptoms: Reports: Other (Only other symptoms are dizziness, headache, and photophobia). Denies: Confusion, Chest Pain, Cough, Diaphoresis, Nausea/Vomiting Posterior Headache Pain Score (Numeric/FACES): 10 Lower Back Pain Score (Numeric/FACES): 8 - Related Data Allergies Allergy/AdvReac Type Severity Reaction Status Date / Time tramadol Allergy Severe Seizure Verified 02/08/19 17:17 Sulfa (Sulfonamide Allergy Nausea and Verified 02/08/19 17:17 Antibiotics) Vomiting Home Meds: Home Meds [place] Carbonate [Eskalith CR] 900 mg PO BEDTIME 11/30/17 [History] Melatonin 5 mg PO BEDTIME 11/30/17 [History] Omeprazole 20 mg PO DAILY 04/16/18 [History] Fluticasone Propionate [Flonase] 2 spray DRISS DAILY 05/12/18 [History] SUMAtriptan [Imitrex] 50 mg PO ASDIRECTED PRN 05/12/18 [History] Lisdexamfetamine [Vyvanse] 30 mg PO DAILY 07/25/19 [History] Acetaminophen [Tylenol Extra Strength] 1,000 mg PO Q6H tablet 07/26/19 [Rx] Dextroamphetamine/Amphetamine [Adderall 10 mg Tablet] 10 mg PO BID 05/14/20 [History] Gabapentin [Neurontin] 300 mg PO BID 05/14/20 [History] Gabapentin [Neurontin] 300 mg PO DAILY 05/14/20 [History] diazePAM [Valium] 10 mg PO TID PRN 05/14/20 [History] traZODone 75 mg PO BEDTIME 05/14/20 [History] Past Medical History - Past Health History Medical/Surgical History: Denies Medical/Surgical History HEENT History: Reports: Otitis Media Cardiovascular History: Reports: None Respiratory History: Reports: None Gastrointestinal History: Reports: Cholelithiasis, GERD, Hiatal Hernia Genitourinary History: Reports: UTI, Recurrent 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: , 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 Musculoskeletal History: Reports: Fracture Other Musculoskeletal History: Toe finger Neurological History: Reports: Concussion, Headaches, Chronic, Migraines, Seizure Psychiatric History: Reports: ADD, Anxiety, Bipolar, Depression, Psych Hospitalization(s), PTSD, Suicide Attempt, Other (See Below) Other 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 Endocrine/Metabolic History: Reports: Obesity/BMI 30+ Hematologic History: Reports: None Immunologic History: Reports: None Oncologic (Cancer) History: Reports: None Dermatologic History: Reports: None - Infectious Disease History Infectious Disease History: Reports: Chicken Pox - Past Surgical History Head Surgeries/Procedures: Reports: None HEENT Surgical History: Reports: Other (See Below) Other HEENT Surgeries/Procedures: ear tubes as a child GI Surgical History: Reports: Cholecystectomy, EGD, Matthew Fundoplication Female Surgical History: Reports: Hysterectomy Endocrine Surgical History: Reports: None Neurological Surgical History: Reports: None Musculoskeletal Surgical History: Reports: None Dermatological Surgical History: Reports: None Social & Family History - Family History Family Medical History: Noncontributory - Tobacco Use Tobacco Use Status *Q: Current Every Day Tobacco User Years of Tobacco use: 12 Packs/Tins Daily: 0.5 - Caffeine Use Caffeine Use: Reports: Coffee, Soda, Tea - Recreational Drug Use Recreational Drug Use: Yes Drug Use in Last 12 Months: No - Living Situation & Occupation Living situation: Reports: (to her , lives in [place]. They are raising children together) ED ROS GENERAL - Review of Systems Review Of Systems: See Below Constitutional: Reports: Malaise. Denies: Fever, Chills HEENT: Denies: Vision Change Respiratory: Denies: Shortness of Breath (Photophobia) Cardiovascular: Denies: Chest Pain GI/Abdominal: Reports: Nausea. Denies: Abdominal Pain, Vomiting Skin: Denies: Bruising Neurological: Reports: Dizziness, Headache ED EXAM, HEAD INJURY - Physical Exam Exam: See Below Exam Limited By: No Limitations General Appearance: Alert, No Apparent Distress (Looks uncomfortable but not dis tressed) Head: Atraumatic (Some tenderness to palpation of the occiput, but no visual objective signs of trauma such as hematoma, abrasion or bruise) Eyes: Bilateral Eye: Normal Inspection Neck: Non-Tender Respiratory: No Respiratory Distress Back Exam: Other (Does react with tenderness to palpation of the paralumbar area and sacral area, nonspecific and diffuse) Neurologic: No Motor/Sensory Deficits, Normal Mood/Affect, Oriented x 3 Skin: Normal Color - Midnight Coma Score Best Eye Response (Midnight): (4) Open Spontaneously Best Verbal Response (Gerardo): (5) Oriented Best Motor Response (Midnight): (6) Obeys Commands Course - Vital Signs Last Recorded V/S: Last Vital Signs Temp 97.6 F 05/14/20 09:57 Pulse 85 05/14/20 09:57 Resp 16 05/14/20 09:57 BP 141/94 H 05/14/20 09:57 Pulse Ox 99 05/14/20 09:57 - Orders/Labs/Meds Meds: Medications Discontinued Medications Generic Name Dose Route Start Last Admin Trade Name Randyq PRN Reason Stop Dose Admin Ketorolac Tromethamine 60 mg 05/14/20 10:05 05/14/20 10:12 Toradol IM 05/14/20 10:06 60 mg ONETIME ONE Administration Ondansetron HCl 4 mg 05/14/20 10:05 05/14/20 10:12 Zofran Odt PO 05/14/20 10:06 4 mg ONETIME ONE Administration - Re-Assessments/Exams Free Text/Narrative Re-Assessment/Exam: 05/14/20 10:08 Told the patient she may have had a mild concussion but no indication for CT scan. She was given 1 injection of 60 mg of Toradol, and 4 mg of sublingual Zofran. 05/14/20 10:24 Patient was discharged with 5 additional doses of Zofran encourage ibuprofen on a regular basis for next few days. Increase activity as tolerated and return anytime if worsening or concerns such as asymmetric neuro deficits or persistent vomiting. Recheck next week if not improving satisfactorily. Departure - Departure Time of Disposition: 10:37 Disposition: Home, Self-Care 01 Clinical Impression: Concussion injury of brain - Discharge Information Instructions: Head Injury, Adult Referrals: PCP,None [Primary Care Provider] - Forms: ED Department Discharge Care Plan Goals: Rest today, use Zofran for nausea and a regular dose of ibuprofen or naproxen through the next several days will be helpful. Increase activity as tolerated and recheck next week if not improving satisfactorily. Return sooner if worsening such as persistent vomiting or unexplained weakness, or other concerns. Sepsis Event Note (ED) - Evaluation Sepsis Screening Result: No Definite Risk - Focused Exam Vital Signs: Vital Signs Temp Pulse Resp BP Pulse Ox 05/14/20 09:57 97.6 F 85 16 141/94 H 99 05/14/20 09:32 97.6 F 85 16 141/94 H 99
== END 2020-05-14 10:38 | disposition home or self-care (01) ==
LOC: JP.ED 09:14
DX: S06.0X0A Concussion without loss of consciousness, initial encounter (principal); M54.5 Low back pain; K21.9 Gastro-esophageal reflux disease without esophagitis; E66.9 Obesity, unspecified; G43.909 Migraine, unspecified, not intractable, without status migrainosus; F17.210 Nicotine dependence, cigarettes, uncomplicated; Z88.6 Allergy status to analgesic agent; Z88.2 Allergy status to sulfonamides; Z79.899 Other long term (current) drug therapy; Z90.49 Acquired absence of other specified parts of digestive tract; Z90.710 Acquired absence of both cervix and uterus; W00.0XXA Fall on same level due to ice and snow, initial encounter
CPT/HCPCS: 96372; 99283; A9270; J1885

== ENCOUNTER 2020-08-09 16:47 | Emergency (ER) | payer MEDICAID ==
[2020-08-09 17:07] VITALS: BP 119/71; PULSE 83
[2020-08-09] MEDS ORDERED: Sodium Chloride 0.9% 10 ML Syringe FLUSH PRN (17:34)
[2020-08-09] MEDS ORDERED: Sodium Chloride 0.9% 1,000 ML IV STA (17:34)
[2020-08-09] MEDS ORDERED: Prochlorperazine 10 MG/2 ML SDV IVPUSH ONE (17:36)
[2020-08-09] MEDS ORDERED: fentaNYL 100 MCG/2 ML SDV IVPUSH ONE (17:36)
--- NOTE | 2020-08-09 17:40 | EDM.PDOC ---
<OfficerLuis - Last Filed: 08/09/20 17:36> ED HPI GENERAL MEDICAL PROBLEM - General Chief Complaint: Gastrointestinal Problem Stated Complaint: ADB PAIN,NAUSEA Time Seen by Provider: 08/09/20 17:27 Source of Information: Reports: Patient, Old Records, RN Notes Reviewed History Limitations: Reports: No Limitations - History of Present Illness INITIAL COMMENTS - FREE TEXT/NARRATIVE: 34-year-old female presents emergency department a complaint of abdominal pain, she is very histrionic, she states she has been having abdominal pain for the last 5 months with diarrhea and bile emesis she states that she has been too busy to follow-up with her primary care for evaluation of this abdominal pain. She states she does have an appointment with her primary care provider on 27 August. Believes the abdominal pain is caused by endometriosis she does have a history of Matthew fundoplication x2 with cholecystectomy total abdominal hysterectomy and oophorectomy Left Lower Abdomen Pain Score (Numeric/FACES): 9 - Related Data Allergies Allergy/AdvReac Type Severity Reaction Status Date / Time tramadol Allergy Severe Seizure Verified 08/09/20 17:11 Sulfa (Sulfonamide Allergy Nausea and Verified 08/09/20 17:11 Antibiotics) Vomiting Home Meds: Home Meds [place] Carbonate [Eskalith CR] 900 mg PO BEDTIME 11/30/17 [History] Melatonin 5 mg PO BEDTIME 11/30/17 [History] Omeprazole 40 mg PO BID 04/16/18 [History] Fluticasone Propionate [Flonase] 2 spray DRISS DAILY PRN 05/12/18 [History] SUMAtriptan [Imitrex] 50 mg PO ASDIRECTED PRN 05/12/18 [History] Lisdexamfetamine [Vyvanse] 30 mg PO DAILY 07/25/19 [History] Gabapentin [Neurontin] 300 mg PO BID 05/14/20 [History] Gabapentin [Neurontin] 300 mg PO DAILY 05/14/20 [History] diazePAM [Valium] 10 mg PO TID PRN 05/14/20 [History] traZODone 75 mg PO BEDTIME 05/14/20 [History] Past Medical History HEENT History: Reports: Otitis Media Gastrointestinal History: Reports: Cholelithiasis, GERD, Hiatal Hernia Genitourinary History: Reports: UTI, Recurrent 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, , Spontaneous Musculoskeletal History: Reports: Fracture Other Musculoskeletal History: Toe finger Neurological History: Reports: Concussion, Headaches, Chronic, Migraines, Seizure Psychiatric History: Reports: ADD, Anxiety, Bipolar, Depression, Psych Hospitalization(s), PTSD, Suicide Attempt, Other (See Below) (Histrionic) Other [facility] Endocrine/Metabolic History: Reports: Obesity/BMI 30+ - Infectious Disease History Infectious Disease History: Reports: Chicken Pox - Past Surgical History Head Surgeries/Procedures: Reports: None HEENT Surgical History: Reports: Other (See Below) Other HEENT Surgeries/Procedures: ear tubes as a child Respiratory Surgical History: Reports: None GI Surgical History: Reports: Cholecystectomy, EGD, Matthew Fundoplication Female Surgical History: Reports: Hysterectomy, Salpingo-Oophorectomy Endocrine Surgical History: Reports: None Neurological Surgical History: Reports: None Musculoskeletal Surgical History: Reports: None Oncologic Surgical History: Reports: None Dermatological Surgical History: Reports: None Social & Family History - Family History Family Medical History: No Pertinent Family History - Tobacco Use Tobacco Use Status *Q: Current Every Day Tobacco User Years of Tobacco use: 20 Packs/Tins Daily: 0.2 Used Tobacco, but Quit: No Second Hand Smoke Exposure: Yes - Caffeine Use Caffeine Use: Reports: Coffee, Energy Drinks - Alcohol Use Days Per Week of Alcohol Use: 0 - Recreational Drug Use Recreational Drug Use: Yes Drug Use in Last 12 Months: Yes Recreational Drug Type: Reports: Marijuana/Hashish Recreational Drug Use Frequency: Rarely - Living Situation & Occupation Living situation: Reports: (to her , lives in [place] by [employer]. They are raising children together) ED ROS GENERAL - Review of Systems Review Of Systems: See Below Constitutional: Reports: No Symptoms HEENT: Reports: No Symptoms Respiratory: Reports: No Symptoms Cardiovascular: Reports: No Symptoms GI/Abdominal: Reports: Abdominal Pain, Diarrhea, Nausea, Vomiting : Reports: No Symptoms ED EXAM, GI/ABD - Physical Exam Exam: See Below Exam Limited By: No Limitations General Appearance: Alert, WD/WN, No Apparent Distress Respiratory/Chest: No Respiratory Distress, Lungs Clear, Normal Breath Sounds, No Accessory Muscle Use, Chest Non-Tender Cardiovascular: Regular Rate, Rhythm, No Murmur GI/Abdominal Exam: Soft, Tender (Generalized tenderness to palpation) Departure - Departure Disposition: Home, Self-Care Clinical Impression: Abdominal pain, Ruptured ovarian cyst - Discharge Information Instructions: Abdominal Pain, Adult, Ovarian Cyst Referrals: Hoda Barillas CNM [Primary Care Provider] - Forms: ED Department Discharge Care Plan Goals: We will put you on a course of strong nonsteroidal anti-inflammatories to reduce inflammation associated with his ruptured ovarian cyst. Follow-up with your [facility] care provider as previously scheduled on August 27. Sepsis Event Note (ED) - Evaluation Sepsis Screening Result: No Definite Risk <Garfield Florian - Last Filed: 08/09/20 19:52> Course - Vital Signs Last Recorded V/S: Last Vital Signs Temp 36.4 C 08/09/20 17:24 Pulse 83 08/09/20 17:24 Resp 16 08/09/20 17:24 BP 119/71 08/09/20 17:24 Pulse Ox 98 08/09/20 17:24 - Orders/Labs/Meds Orders: Active Orders 24 hr Category Date Time Status Peripheral IV Care [RC] . DIRECTED Care 08/09/20 17:35 Active UA W/MICROSCOPIC [URIN] Urgent Lab 08/09/20 17:34 Ordered Iopamidol [Isovue-300 (61%)] Med 08/09/20 17:45 Active 100 ml IV . DIRECTED Sodium Chloride 0.9% [Normal Saline] 80 ml Med 08/09/20 17:45 Active IV ASDIRECTED Sodium Chloride 0.9% [Saline Flush] Med 08/09/20 17:34 Active 10 ml FLUSH ASDIRECTED PRN Peripheral IV Insertion Adult [OM.PC] Urgent Oth 08/09/20 17:34 Ordered Medication Orders Sodium Chloride (Normal Saline) 80 mls @ 3 mls/sec IV ASDIRECTED TAYLOR Last Admin: 08/09/20 18:19 Dose: 3 mls/sec Documented by: IVANIA Iopamidol (Isovue-300 (61%)) 100 ml IV . DIRECTED TAYLOR Last Admin: 08/09/20 18:19 Dose: 100 ml Documented by: IVANIA Sodium Chloride (Saline Flush) 10 ml FLUSH ASDIRECTED PRN PRN Reason: Keep Vein Open Last Admin: 08/09/20 18:19 Dose: 10 ml Documented by: IVANIA Labs: Laboratory Tests 08/09/20 08/09/20 08/09/20 Range/Units 17:51 17:51 17:51 WBC 10.3 (4.5-11.0) K/uL RBC 4.87 (3.30-5.50) M/uL Hgb 13.4 (12.0-15.0) g/dL Hct 43.4 (36.0-48.0) % MCV 89 (80-98) fL MCH 28 (27-31) pg MCHC 31 L (32-36) % Plt Count 305 (150-400) K/uL Neut % (Auto) 63 (36-66) % Lymph % (Auto) 26 (24-44) % [place] % (Auto) 7 H (2-6) % Eos % (Auto) 3 (2-4) % Baso % (Auto) 1 (0-1) % Sodium 139 L (140-148) mmol/L Potassium 3.9 (3.6-5.2) mmol/L Chloride 104 (100-108) mmol/L Carbon Dioxide 27 (21-32) mmol/L Anion Gap 11.9 (5.0-14.0) mmol/L BUN 13 (7-18) mg/dL Creatinine 1.0 (0.6-1.0) mg/dL Est Cr Clr Drug Dosing 62.69 mL/min Estimated GFR (MDRD) > 60 (>60) Glucose 89 (74-106) mg/dL Lactic Acid 0.8 (0.4-2.0) mmol/L Calcium 9.0 (8.5-10.1) mg/dL Total Bilirubin 0.4 (0.2-1.0) mg/dL AST 12 L (15-37) U/L ALT 23 (12-78) U/L Alkaline Phosphatase 85 (46-116) U/L Total Protein 6.8 (6.4-8.2) g/dL Albumin 3.4 (3.4-5.0) g/dL Globulin 3.4 (2.3-3.5) g/dL Albumin/Globulin Ratio 1.0 L (1.2-2.2) Lipase 94 (73-393) U/L Meds: Medications Generic Name Dose Route Start Last Admin Trade Name Freq PRN Reason Stop Dose Admin Sodium Chloride 80 mls @ 3 mls/sec 08/09/20 17:45 08/09/20 18:19 Normal Saline IV 3 mls/sec ASDIRECTED TAYLOR Administration Iopamidol 100 ml 08/09/20 17:45 08/09/20 18:19 Isovue-300 (61%) IV 100 ml . DIRECTED TAYLOR Administration Sodium Chloride 10 ml 08/09/20 17:34 08/09/20 18:19 Saline Flush FLUSH 10 ml ASDIRECTED PRN Administration Keep Vein Open Discontinued Medications Generic Name Dose Route Start Last Admin Trade Name Carlos Enrique PRN Reason Stop Dose Admin Fentanyl 50 mcg 08/09/20 17:36 08/09/20 17:57 Sublimaze IVPUSH 08/09/20 17:37 50 mcg ONETIME ONE Administration Sodium Chloride 1,000 mls @ 500 mls/hr 08/09/20 17:34 08/09/20 17:55 Normal Saline IV 08/09/20 19:33 500 mls/hr .BOLUS STA Administration Prochlorperazine Edisylate 5 mg 08/09/20 17:36 08/09/20 17:56 Compazine IVPUSH 08/09/20 17:37 5 mg ONETIME ONE Administration - Re-Assessments/Exams Free Text/Narrative Re-Assessment/Exam: 08/09/20 19:43 reviewed the findings from the CT of the abdomen and pelvis showing multiple simple cysts in the ovary with a small amount of free fluid in the pelvis. This may be the nidus for the patient's abdominal pain, i.e. ruptured ovarian cyst. There is no other obvious abnormalities seen on the CT o ther than a pulmonary nodule which remained stable in the right lung base. The patient may follow-up as previously scheduled with her primary care provider. We will put her on a course of oral Toradol for pain control. I do not think that narcotics are warranted in this situation. Indications to return to the ED were discussed and all questions were answered prior the patient being discharged. Departure - Departure Time of Disposition: 19:45 Condition: Good (Abdominal pain) - Discharge Information *PRESCRIPTION DRUG MONITORING PROGRAM REVIEWED*: Yes *COPY OF PRESCRIPTION DRUG MONITORING REPORT IN PATIENT BUSHRA: No Sepsis Event Note (ED) - Focused Exam Vital Signs: Vital Signs Temp Pulse Resp BP Pulse Ox 08/09/20 17:24 36.4 C 83 16 119/71 98 08/09/20 17:05 36.4 C 83 16 119/71 98
[2020-08-09] MEDS ORDERED: Sodium Chloride 0.9% 80 ML IV SCH (17:45)
[2020-08-09] MEDS ORDERED: Iopamidol 612 MG/ML 100 ML Bottle IV SCH (17:45)
--- NOTE | 2020-08-09 19:10 | CRLCT ---
Indication: Generalized abdominal pain Technique: Postcontrast CT abdomen and pelvis. 100 cc Isovue-300 administered intravenously. Please note that all CT scans at this facility use dose modulation, iterative reconstruction, and/or weight-based dosing when appropriate to reduce radiation dose to as low as reasonably achievable. Comparison: 07/25/2019 Findings: Stable pleural-based nodule at the left lower lobe measuring 8 millimeters. Stable smaller pleural-based nodule right lower lobe. No pleural effusion. No infiltrate. Postoperative changes to the gastroesophageal junction from presumed Matthew procedure. Status post cholecystectomy. Sumiton effect noted regarding the intrahepatic biliary tree. The adrenal glands are normal. Normal kidneys. No hydronephrosis or stone. Normal spleen. The pancreas is normal. No suspicious adenopathy. Umbilical hernia containing fat measuring 17 millimeters. Status post hysterectomy and right oophorectomy. No bowel obstruction. Mild pelvic free fluid. Normal appendix. Enlarged left ovary measuring up to 4.7 centimeters. Several ovarian cysts are present measuring up to 1.9 centimeters. No fracture or suspicious osseous lesion. Impression: Enlarged left ovary containing multifocal cysts. Mild pelvic free fluid is also present. Ultrasound pelvis recommended. Normal appendix. Chronic umbilical hernia containing fat. Status post cholecystectomy, hysterectomy, right oophorectomy and Matthew fundoplication. Please note that all CT scans at this facility use dose modulation, iterative reconstruction, and/or weight-based dosing when appropriate to reduce radiation dose to as low as reasonably achievable. Dictated by Kaiser Johnson MD @ Aug 09 2020 6:54PM Signed by Dr. Kaiser Johnson @ Aug 09 2020 7:08PM
== END 2020-08-09 20:02 | disposition home or self-care (01) ==
LOC: JP.ED 16:47
DX: N83.202 Unspecified ovarian cyst, left side (principal); K21.9 Gastro-esophageal reflux disease without esophagitis; E66.9 Obesity, unspecified; Z88.2 Allergy status to sulfonamides; Z88.5 Allergy status to narcotic agent; Z72.0 Tobacco use; Z68.27 Body mass index [BMI] 27.0-27.9, adult; Z79.899 Other long term (current) drug therapy
CPT/HCPCS: 36415; 74177; 80053; 83605; 83690; 85025; 96374; 96375; 99284; J0780; J3010; J7030; Q9967

== ENCOUNTER 2020-08-22 20:17 | Emergency (ER) | payer MEDICAID ==
[2020-08-22 20:43] VITALS: BP 121/79; PULSE 87
[2020-08-22] MEDS ORDERED: HYDROmorphone 0.5 MG/0.5 ML Syringe IM ONE (21:38)
--- NOTE | 2020-08-22 21:43 | EDM.PDOC ---
ED HPI GENERAL MEDICAL PROBLEM - General Chief Complaint: Abdominal Pain Stated Complaint: RUPTURED CYST - PAIN Time Seen by Provider: 08/22/20 21:20 Source of Information: Reports: Patient, Old Records History Limitations: Reports: No Limitations - History of Present Illness INITIAL COMMENTS - FREE TEXT/NARRATIVE: Ivette is a 34-year-old female who is known to me from an evaluation on 08/09/2020 presenting to the ED for evaluation of low abdominal pain, burning sensation, bloating, low-grade fever, and generalized malaise. The patient was seen on 08/09/2020 and diagnosed with a ruptured left ovarian cyst. At that time she was started on Toradol 10 mg 4 times daily. She states that this has not been sufficient to control her pain and now she has developed a low-grade fever to 100.7 F, body aches, generalized malaise, and decreased appetite. She denies any nausea or vomiting, diarrhea or constipation. She has been passing gas. She has been more tired and fatigued over the last couple of days. She denies any loss of taste or smell. - Related Data Allergies Allergy/AdvReac Type Severity Reaction Status Date / Time tramadol Allergy Severe Seizure Verified 08/22/20 20:37 eszopiclone [From Lunesta] Allergy Hives Verified 08/22/20 20:37 Sulfa (Sulfonamide Allergy Nausea and Verified 08/22/20 20:37 Antibiotics) Vomiting Home Meds: Home Meds Mccleary Carbonate [Eskalith CR] 900 mg PO BEDTIME 11/30/17 [History] Melatonin 5 mg PO BEDTIME 11/30/17 [History] Omeprazole 40 mg PO BID 04/16/18 [History] Fluticasone Propionate [Flonase] 2 spray DRISS DAILY PRN 05/12/18 [History] SUMAtriptan [Imitrex] 50 mg PO ASDIRECTED PRN 05/12/18 [History] Lisdexamfetamine [Vyvanse] 30 mg PO DAILY 07/25/19 [History] Gabapentin [Neurontin] 300 mg PO BID 05/14/20 [History] Gabapentin [Neurontin] 600 mg PO DAILY 05/14/20 [History] diazePAM [Valium] 10 mg PO TID PRN 05/14/20 [History] traZODone 75 mg PO BEDTIME 05/14/20 [History] Diclofenac Sodium [Diclofenac Sodium ER] 100 mg PO DAILY 7 Days #7 tab.er.24h 08/22/20 [Rx] [place]-3/DHA/Epa/Fish Oil [Fish Oil 1,000 mg Softgel] 1 each PO DAILY 08/22/20 [History] ondansetron HCL [Zofran] 4 mg PO Q6H PRN 08/22/20 [History] Past Medical History - Past Health History Medical/Surgical History: Denies Medical/Surgical History HEENT History: Reports: Otitis Media Cardiovascular History: Reports: None Respiratory History: Reports: None Gastrointestinal History: Reports: Cholelithiasis, GERD, Hiatal Hernia Genitourinary History: Reports: UTI, Recurrent 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 MOBILITY History: Reports: Endometriosis, , Spontaneous Musculoskeletal History: Reports: Fracture Other Musculoskeletal History: Toe finger Neurological History: Reports: Concussion, Headaches, Chronic, Migraines, Seizure Psychiatric History: Reports: ADD, Anxiety, Bipolar, Depression, Psych Hospitalization(s), PTSD, Suicide Attempt, Other (See Below) Other [facility] Endocrine/Metabolic History: Reports: Obesity/BMI 30+ Hematologic History: Reports: None Immunologic History: Reports: None Oncologic (Cancer) History: Reports: None Dermatologic History: Reports: None - Infectious Disease History Infectious Disease History: Reports: Chicken Pox - Past Surgical History Head Surgeries/Procedures: Reports: None HEENT Surgical History: Reports: Other (See Below) Other HEENT Surgeries/Procedures: ear tubes as a child GI Surgical History: Reports: Cholecystectomy, EGD, Matthew Fundoplication Female Surgical History: Reports: Hysterectomy, Oophorectomy, Salpingo- Oophorectomy, Other (See Below) Other Female Surgeries/Procedures: only has left ovary remaining Endocrine Surgical History: Reports: None Neurological Surgical History: Reports: None Musculoskeletal Surgical History: Reports: None Oncologic Surgical History: Reports: None Social & Family History - Family History Family Medical History: No Pertinent Family History - Tobacco Use Tobacco Use Status *Q: Current Every Day Tobacco User Years of Tobacco use: 22 Packs/Tins Daily: 0.5 - Caffeine Use Caffeine Use: Reports: Coffee, Energy Drinks, Soda, Tea - Recreational Drug Use Recreational Drug Use: Yes Drug Use in Last 12 Months: Yes Recreational Drug Type: Reports: Marijuana/Hashish Recreational Drug Use Frequency: Weekly - Living Situation & Occupation Living situation: Reports: (to her , lives in [place] by [place]. They are raising children together) ED ROS GENERAL - Review of Systems Review Of Systems: See Below Constitutional: Reports: Fever, Chills, Malaise, Fatigue, Decreased Appetite HEENT: Reports: Vision Change (Patient reports having blurred vision and seeing "3 signs" while she was driving today.) Respiratory: Reports: No Symptoms Cardiovascular: Reports: No Symptoms Endocrine: Reports: Fatigue GI/Abdominal: Reports: Abdominal Pain (Low abdominal pain that she describes as burning and pressure.), Decreased Appetite, Distension, Flatus. Denies: Constipation, Diarrhea, Nausea, Vomiting : Reports: No Symptoms Musculoskeletal: Reports: Muscle Pain Skin: Reports: No Symptoms Neurological: Reports: No Symptoms Psychiatric: Reports: No Symptoms Hematologic/Lymphatic: Reports: No Symptoms Immunologic: Reports: No Symptoms ED EXAM, GI/ABD - Physical Exam Exam: See Below Exam Limited By: No Limitations General Appearance: Alert, Mild Distress Eyes: Bilateral: EOMI Head: Atraumatic, Normocephalic Neck: Normal Inspection, Supple, Non-Tender. No: Lymphadenopathy (R), Lymphadenopathy (L) Respiratory/Chest: No Respiratory Distress, Lungs Clear, Normal Breath Sounds, No Accessory Muscle Use, Chest Non-Tender Cardiovascular: Normal Peripheral Pulses, Regular Rate, Rhythm, No Edema, No Murmur GI/Abdominal Exam: Normal Bowel Sounds, Soft, Distended (Tympany to percussion throughout the abdomen), Tender (Diffusely tender), Hernia (Large ventral hernia). No: Guarding, Rigid, Rebound, Mass, Hepatomegaly, Splenomegaly Back Exam: Normal Inspection Extremities: Normal Inspection, Normal Range of Motion Neurological: Alert, Oriented, Normal Cognition, No Motor/Sensory Deficits Psychiatric: Normal Affect, Normal Mood Skin Exam: Warm, Dry Lymphatic: No Adenopathy Course - Vital Signs Last Recorded V/S: Last Vital Signs Temp 36.9 C 08/22/20 20:41 Pulse 87 08/22/20 20:41 Resp 16 08/22/20 20:41 BP 121/79 08/22/20 20:41 Pulse Ox 99 08/22/20 20:41 - Orders/Labs/Meds Orders: Active Orders 24 hr Category Date Time Status Abdomen 2V AP Flat Upright [CR] Stat Exams 08/22/20 21:36 Taken COVID-19/FLU A+B/RSV [MOLEC] Stat Lab 08/22/20 21:40 Ordered Labs: Laboratory Tests 08/22/20 08/22/20 08/22/20 Range/Units 21:46 21:48 21:48 WBC 10.0 (4.5-11.0) K/uL RBC 4.38 (3.30-5.50) M/uL Hgb 12.4 (12.0-15.0) g/dL Hct 39.5 (36.0-48.0) % MCV 90 (80-98) fL MCH 28 (27-31) pg MCHC 31 L (32-36) % Plt Count 285 (150-400) K/uL Neut % (Auto) 53 (36-66) % Lymph % (Auto) 36 (24-44) % [place] % (Auto) 8 H (2-6) % Eos % (Auto) 3 (2-4) % Baso % (Auto) 1 (0-1) % Sodium 144 (140-148) mmol/L Potassium 4.2 (3.6-5.2) mmol/L Chloride 108 (100-108) mmol/L Carbon Dioxide 28 (21-32) mmol/L Anion Gap 8.4 (5.0-14.0) mmol/L BUN 11 (7-18) mg/dL Creatinine 1.0 (0.6-1.0) mg/dL Est Cr Clr Drug Dosing 62.69 mL/min Estimated GFR (MDRD) > 60 (>60) Glucose 94 (74-106) mg/dL Calcium 8.8 (8.5-10.1) mg/dL Total Bilirubin 0.2 (0.2-1.0) mg/dL AST 11 L (15-37) U/L ALT 32 (12-78) U/L Alkaline Phosphatase 99 (46-116) U/L C-Reactive Protein 0.14 (0.0-0.3) mg/dL Total Protein 6.1 L (6.4-8.2) g/dL Albumin 3.0 L (3.4-5.0) g/dL Globulin 3.1 (2.3-3.5) g/dL Albumin/Globulin Ratio 1.0 L (1.2-2.2) Urine Color Yellow (YELLOW) Urine Appearance Clear (CLEAR) Urine pH 7.0 (5.0-8.0) Ur Specific [place] 1.025 (1.008-1.030) Urine Protein Negative (NEGATIVE) mg/dL Urine Glucose (UA) Negative (NEGATIVE) mg/dL Urine Ketones Negative (NEGATIVE) mg/dL Urine Occult Blood Negative (NEGATIVE) Urine Nitrite Negative (NEGATIVE) Urine Bilirubin Negative (NEGATIVE) Urine Urobilinogen 0.2 (0.2-1.0) EU/dL Ur Leukocyte Esterase Negative (NEGATIVE) Urine RBC 0-5 (0-5) Urine WBC 0-5 (0-5) Ur Epithelial Cells Moderate Amorphous Sediment Rare Urine Bacteria Few Urine Mucus Occasional Meds: Medications Discontinued Medications Generic Name Dose Route Start Last Admin Trade Name Freq PRN Reason Stop Dose Admin Hydromorphone HCl 0.5 mg 08/22/20 21:38 08/22/20 21:54 Dilaudid IM 08/22/20 21:39 0.5 mg ONETIME ONE Administration - Re-Assessments/Exams Free Text/Narrative Re-Assessment/Exam: 08/22/20 22:35 I reviewed labs and x-rays of the patient. Her labs are unremarkable for any significant findings. Her x-ray shows a copious amount of colonic well-formed stool and flatus without evidence for obstruction. This is consistent with slow transition constipation. She likely has ongoing symptoms of both the constipation and inflammation in the pelvis due to the ruptured ovarian cyst. We will discontinue the use of Toradol and I will put her on diclofenac ER 100 mg daily for 7 days. Again the use of narcotic medication is contraindicated in this patient given her slow transition constipation. Management of the constipation was discussed including the use of MiraLAX daily for the next couple of days and increasing her fluid intake. Indications return to the ED were discussed and she was discharged in satisfactory condition. Departure - Departure Time of Disposition: 22:37 Disposition: Home, Self-Care 01 Condition: Good Clinical Impression: Ruptured cyst of left ovary, Slow transit constipation, Abdominal bloating, Excessive flatus Abdominal pain Qualifiers: Abdominal location: lower abdomen, unspecified Qualified Code(s): R10.30 - Lower abdominal pain, unspecified - Discharge Information *PRESCRIPTION DRUG MONITORING PROGRAM REVIEWED*: Yes *COPY OF PRESCRIPTION DRUG MONITORING REPORT IN PATIENT BUSHRA: No Prescriptions: Diclofenac Sodium [Diclofenac Sodium ER] 100 mg PO DAILY 7 Days #7 tab.er.24h Instructions: Ovarian Cyst, [id number], Abdominal Bloating, Constipation, Adult, [id number] Referrals: Hoda Barillas CNM [Primary Care Provider] - Forms: ED Department Discharge Care Plan Goals: We are changing your pain medication to diclofenac extended release 100 mg daily. This is going to replace the Toradol. Make sure you take it with a small amount of food as not to cause stomach upset. Your abdominal bloating, distention, and increased pain is due to the fact that she now will also have slow transit constipation with a copious amount of stool throughout your colon. The distention is due to an equally large amount of gas throughout the colon. You may try any of the simethicone-based products like Maalox, Gaviscon, Di-Gel, or Gas-X to help break up the gas. For the constipation I would recommend using MiraLAX 1 capful daily for the next 3 to 4 days. Increase your fluid intake which will also help soften the stool and allow you to pass it more easily. The remainder of your blood work was unremarkable for any sign of infection. I am not certain what the fever was caused by, however, there may be a viral syndrome going on that is not Covid related i.e. a common cold causing your fatigue. Your urinalysis was unremarkable. Sepsis Event Note (ED) - Evaluation Sepsis Screening Result: No Definite Risk - Focused Exam Vital Signs: Vital Signs Temp Pulse Resp BP Pulse Ox 08/22/20 20:41 36.9 C 87 16 121/79 99 - Problem List & Annotations (1) Abdominal bloating SNOMED Code(s): 720746742 Code(s): R14.0 - ABDOMINAL DISTENSION (GASEOUS) Status: Acute Priority: High Current Visit: Yes (2) Abdominal pain SNOMED Code(s): 65562599 Code(s): R10.9 - UNSPECIFIED ABDOMINAL PAIN Status: Acute Priority: High Current Visit: Yes Qualifiers: Abdominal location: lower abdomen, unspecified Qualified Code(s): R10.30 - Lower abdominal pain, unspecified (3) Excessive flatus SNOMED Code(s): 14251583 Code(s): R14.3 - FLATULENCE Status: Acute Priority: High Current Visit: Yes (4) Ruptured cyst of left ovary SNOMED Code(s): 32749614258279377 Code(s): N83.202 - UNSPECIFIED OVARIAN CYST, LEFT SIDE Status: Acute Priority: High Current Visit: Yes (5) Slow transit constipation SNOMED Code(s): 39610451 Code(s): K59.01 - SLOW TRANSIT CONSTIPATION Status: Acute Priority: High Current Visit: Yes - Problem List Review Problem List Initiated/Reviewed/Updated: Yes - My Orders Last 24 Hours: My Active Orders 08/22/20 21:36 Abdomen 2V AP Flat Upright [CR] Stat 08/22/20 21:40 COVID-19/FLU A+B/RSV [MOLEC] Stat - Assessment/Plan Last 24 Hours: My Active Orders 08/22/20 21:36 Abdomen 2V AP Flat Upright [CR] Stat 08/22/20 21:40 COVID-19/FLU A+B/RSV [MOLEC] Stat
[2020-08-22 22:51] LABS: CORONAVIRUS COVID-19 NAA NEGATIVE (NEGATIVE)
--- NOTE | 2020-08-25 08:57 | CR ---
Abdomen 2V AP Flat Upright CLINICAL HISTORY: Abdominal pain and bloating FINDINGS: No free air is identified. There is moderate fluid and food in the stomach The small intestinal configuration is nonacute. There is moderate fecal retention. IMPRESSION: Nonacute intestinal gas pattern Moderate fecal retention
== END 2020-08-22 22:53 | disposition home or self-care (01) ==
LOC: JP.ED 20:17
DX: N83.202 Unspecified ovarian cyst, left side (principal); K59.01 Slow transit constipation; R14.3 Flatulence; K21.9 Gastro-esophageal reflux disease without esophagitis; E66.9 Obesity, unspecified; Z68.31 Body mass index [BMI] 31.0-31.9, adult; Z88.5 Allergy status to narcotic agent; Z88.8 Allergy status to other drugs, medicaments and biological substances; Z88.2 Allergy status to sulfonamides; Z79.899 Other long term (current) drug therapy; Z72.0 Tobacco use
CPT/HCPCS: 0241U; 36415; 74019; 80053; 81001; 85025; 86140; 96372; 99284; J1170; 99283

== ENCOUNTER 2020-09-05 16:20 | Emergency (ER) | payer MEDICAID ==
[2020-09-05 17:15] VITALS: BP 119/50; PULSE 96
--- NOTE | 2020-09-05 17:30 | EDM.PDOC ---
ED HPI GENERAL MEDICAL PROBLEM - General Chief Complaint: Gastrointestinal Problem Stated Complaint: RUPTURED CYST Time Seen by Provider: 09/05/20 17:04 Source of Information: Reports: Patient, Old Records History Limitations: Reports: No Limitations - History of Present Illness INITIAL COMMENTS - FREE TEXT/NARRATIVE: Ivette is a 34-year-old female well-known to me from previous visits who presents with low abdominal pain specifically in the left lower quadrant radiating up into the left upper quadrant that she reports is a burning sensation like somebody is stabbing her with a hot cigarette. The patient is known to have a ruptured ovarian cyst on that side which is her only remaining ovary. She is reportedly scheduled to have a new pleurectomy and hernia repair upcoming next month performed by Dr. Dan and Dr. Duarte. She reports that she has been having difficulty with some constipation but self remedied with refried black beans last night and states that she had a substantial bowel movement that "cleaned her out" but she still quite distended and nauseated. She does state that the flash of pain today did set her off with nausea and vomiting and previously she had hematemesis and did not want to get to that point again. She did take Zofran an hour before her emesis. She does report that she has been taking Tylenol and ibuprofen for her left lower quadrant pain. She denies any fever, chills, cough or shortness of breath, chest pain or back pain. She has had no new urinary symptoms. - Related Data Allergies Allergy/AdvReac Type Severity Reaction Status Date / Time tramadol Allergy Severe Seizure Verified 09/05/20 17:01 eszopiclone [From Lunesta] Allergy Hives Verified 09/05/20 17:01 Sulfa (Sulfonamide Allergy Nausea and Verified 09/05/20 17:01 Antibiotics) Vomiting Home Meds: Home Meds [place]alissa Carbonate [Eskalith CR] 900 mg PO BEDTIME 11/30/17 [History] Melatonin 5 mg PO BEDTIME 11/30/17 [History] Omeprazole 40 mg PO BID 04/16/18 [History] Fluticasone Propionate [Flonase] 2 spray DRISS DAILY PRN 05/12/18 [History] SUMAtriptan [Imitrex] 50 mg PO ASDIRECTED PRN 05/12/18 [History] Lisdexamfetamine [Vyvanse] 30 mg PO DAILY 07/25/19 [History] Gabapentin [Neurontin] 600 mg PO BID 05/14/20 [History] diazePAM [Valium] 10 mg PO TID PRN 05/14/20 [History] traZODone 75 mg PO BEDTIME 05/14/20 [History] Diclofenac Sodium [Diclofenac Sodium ER] 100 mg PO DAILY 7 Days #7 tab.er.24h 08/22/20 [Rx] [place]-3/DHA/Epa/Fish Oil [Fish Oil 1,000 mg Softgel] 1 each PO DAILY 08/22/20 [History] ondansetron HCL [Zofran] 4 mg PO Q6H PRN 08/22/20 [History] Amoxicillin/Potassium Clav [Augmentin 875-125 Tablet] 1 each PO BID #14 tablet 09/05/20 [Rx] Metoclopramide HCl [Reglan] 10 mg PO Q8HR PRN #10 tablet 09/05/20 [Rx] Past Medical History - Past Health History Medical/Surgical History: Denies Medical/Surgical History HEENT History: Reports: Otitis Media Cardiovascular History: Reports: None Respiratory History: Reports: None Gastrointestinal History: Reports: Cholelithiasis, GERD, Hiatal Hernia Genitourinary History: Reports: UTI, Recurrent FANC[employer] W[employer] DRAWER History: Reports: Endometriosis, , Spontaneous Musculoskeletal History: Reports: Fracture Other Musculoskeletal History: Toe finger Neurological History: Reports: Concussion, Headaches, Chronic, Migraines, Seizure Psychiatric History: Reports: ADD, Anxiety, Bipolar, Depression, Psych Hospitalization(s), PTSD, Suicide Attempt, Other (See Below) Other 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 Endocrine/Metabolic History: Reports: Obesity/BMI 30+ Hematologic History: Reports: None Immunologic History: Reports: None Oncologic (Cancer) History: Reports: None Dermatologic History: Reports: None - Infectious Disease History Infectious Disease History: Reports: None, Chicken Pox - Past Surgical History Head Surgeries/Procedures: Reports: None HEENT Surgical History: Reports: Other (See Below) Other HEENT Surgeries/Procedures: ear tubes as a child Respiratory Surgical History: Reports: None GI Surgical History: Reports: Cholecystectomy, EGD, Matthew Fundoplication Female Surgical History: Reports: Hysterectomy, Oophorectomy, Salpingo- Oophorectomy, Other (See Below) Other Female Surgeries/Procedures: only has left ovary remaining Endocrine Surgical History: Reports: None Neurological Surgical History: Reports: None Musculoskeletal Surgical History: Reports: None Oncologic Surgical History: Reports: None Dermatological Surgical History: Reports: None Social & Family History - Family History Family Medical History: No Pertinent Family History - Tobacco Use Tobacco Use Status *Q: Current Every Day Tobacco User Years of Tobacco use: 20 Packs/Tins Daily: 0.2 - Caffeine Use Caffeine Use: Reports: Coffee, Energy Drinks, Soda, Tea - Living Situation & Occupation Living situation: Reports: (to her , lives in [place] by [address]. They are raising children together) ED ROS GENERAL - Review of Systems Review Of Systems: See Below Constitutional: Reports: No Symptoms HEENT: Reports: No Symptoms Respiratory: Reports: No Symptoms Cardiovascular: Reports: No Symptoms Endocrine: Reports: No Symptoms GI/Abdominal: Reports: Abdominal Pain (Left lower quadrant), Constipation, Distension, Nausea, Vomiting (With streaks of blood with the last emesis.) : Reports: Pain (Chronic ongoing left lower quadrant pain due to an ovarian cyst. The patient is scheduled to have an oophorectomy for this in the next couple of weeks with Dr. Dan in [facility].) Musculoskeletal: Reports: No Symptoms Skin: Reports: No Symptoms Neurological: Reports: No Symptoms Psychiatric: Reports: Anxiety Hematologic/Lymphatic: Reports: No Symptoms Immunologic: Reports: No Symptoms ED EXAM, GI/ABD - Physical Exam Exam: See Below Exam Limited By: No Limitations General Appearance: Alert, No Apparent Distress, Anxious Eyes: Bilateral: EOMI Throat/Mouth: Normal Inspection, Normal Lips, Normal Oropharynx, Normal Voice, Other (Significant fracture and avulsion of the left lower wisdom tooth with gingival swelling and tenderness consistent with an acute apical abscess. There is nothing to drain at this time.) Head: Atraumatic, Normocephalic. No: Facial Swelling, Facial Tenderness Neck: Normal Inspection, Supple, Non-Tender, Full Range of Motion. No: Lymphadenopathy (R), Lymphadenopathy (L) Respiratory/Chest: No Respiratory Distress, Lungs Clear, Normal Breath Sounds Cardiovascular: Normal Peripheral Pulses, Regular Rate, Rhythm, No Murmur GI/Abdominal Exam: Soft, Distended (Tympany to percussion throughout the upper abdomen.), Guarding, Tender (Tenderness to even the lightest palpation over the left lower quadrant), Abnormal Bowel Sounds (Diminished bowel sounds). No: Rigid, Rebound Back Exam: Normal Inspection, Full Range of Motion Extremities: Normal Inspection, Normal Range of Motion Neurological: Alert, Oriented, Normal Cognition, No Motor/Sensory Deficits Psychiatric: Anxious Skin Exam: Warm, Normal Color, No Rash Lymphatic: No Adenopathy Course - Vital Signs Last Recorded V/S: Last Vital Signs Temp 36.3 C 09/05/20 17:14 Pulse 96 09/05/20 17:14 Resp 14 09/05/20 17:14 BP 119/50 L 09/05/20 17:14 Pulse Ox 96 09/05/20 17:14 - Orders/Labs/Meds Orders: Active Orders 24 hr Category Date Time Status Abdomen 2V AP Flat Upright [CR] Stat Exams 09/05/20 17:31 Taken Labs: Laboratory Tests 09/05/20 09/05/20 Range/Units 17:43 17:43 WBC 11.2 H (4.5-11.0) K/uL RBC 4.52 (3.30-5.50) M/uL Hgb 12.8 (12.0-15.0) g/dL Hct 40.0 (36.0-48.0) % MCV 89 (80-98) fL MCH 28 (27-31) pg MCHC 32 (32-36) % Plt Count 319 (150-400) K/uL Neut % (Auto) 53 (36-66) % Lymph % (Auto) 37 (24-44) % [place] % (Auto) 8 H (2-6) % Eos % (Auto) 1 L (2-4) % Baso % (Auto) 1 (0-1) % Sodium 141 (140-148) mmol/L Potassium 4.2 (3.6-5.2) mmol/L Chloride 105 (100-108) mmol/L Carbon Dioxide 28 (21-32) mmol/L Anion Gap 8.1 (5.0-14.0) mmol/L BUN 17 D (7-18) mg/dL Creatinine 0.9 (0.6-1.0) mg/dL Est Cr Clr Drug Dosing 66.46 mL/min Estimated GFR (MDRD) > 60 (>60) Glucose 81 (74-106) mg/dL Calcium 9.1 (8.5-10.1) mg/dL Total Bilirubin 0.1 L (0.2-1.0) mg/dL AST 18 (15-37) U/L ALT 34 (12-78) U/L Alkaline Phosphatase 94 (46-116) U/L Total Protein 6.8 (6.4-8.2) g/dL Albumin 3.5 (3.4-5.0) g/dL Globulin 3.3 (2.3-3.5) g/dL Albumin/Globulin Ratio 1.1 L (1.2-2.2) Meds: Medications Discontinued Medications Generic Name Dose Route Start Last Admin Trade Name Freq PRN Reason Stop Dose Admin Amoxicillin/Clavulanate Potassium 1 tab 09/05/20 17:33 09/05/20 17:51 Augmentin 875 Mg/125 Mg PO 09/05/20 17:34 1 tab ONETIME ONE Administration Lidocaine 700 mg 09/05/20 17:31 09/05/20 17:51 Lidoderm 5% TRDERM 09/05/20 17:32 700 mg ONETIME ONE Administration Metoclopramide HCl 10 mg 09/05/20 17:31 09/05/20 17:51 Reglan PO 09/05/20 17:32 10 mg ONETIME ONE Administration - Re-Assessments/Exams Free Text/Narrative Re-Assessment/Exam: 09/05/20 18:37 I reviewed x-rays and labs. The x-ray of the abdomen 2 view shows a fair amount of stool throughout the colon without evidence for obstruction. Labs are remarkable for a mild leukocytosis at 11.2 which is likely due to the tooth infection. The patient is known to have a left ovarian cyst the previously had ruptured. This was on 06/09/2021 which is nearly 4 weeks ago and I would have expected it to have resolved by now. Patient did see Dr. Russell Hernandez and is scheduled to have a hernia repair by him and a nephrectomy by Dr. Duarte in the upcoming weeks. She states that she has not been able to get into see a dentist because of childcare issues. We will put her on Augmentin 875 mg twice daily for periapical infection. This tooth will likely need to be taken out as it is a partial crown. It will be a nidus for reinfection. As for her abdominal pain, she does have some evidence for the slow transit constipation again. I recommend a laxative of choice for this. She should increase her fluid intake as well. I still do not believe the narcotic pain medications are warranted in her situation especially with the ongoing constipation issue. She will have to continue to take Tylenol or ibuprofen for pain control. We did try a Lidoderm patch on the area to see if that would help. At this time I believe she is suitable for discharge home. All questions were answered prior to discharge. Departure - Departure Time of Disposition: 18:39 Disposition: Home, Self-Care 01 Clinical Impression: Infected dental caries, Left lower quadrant abdominal pain, History of ovarian cyst, Abdominal bloating Nausea and vomiting Qualifiers: Vomiting type: bilious vomiting Qualified Code(s): R11.14 - Bilious vomiting - Discharge Information *PRESCRIPTION DRUG MONITORING PROGRAM REVIEWED*: Yes *COPY OF PRESCRIPTION DRUG MONITORING REPORT IN PATIENT BUSHRA: No Instructions: Nausea and Vomiting, Adult, Constipation, Adult, [id number], Abdominal Pain, Adult, [id number], Dental Abscess Referrals: Hoda Barillas CNM [Primary Care Provider] - Forms: ED Department Discharge Care Plan Goals: Follow-up as soon as you can with a dentist to have the tooth extracted as it will likely continue to be a recurring source for infection. Good luck with your upcoming surgery to remove the left ovary. I hope that this will finally take care of your ongoing left lower quadrant abdominal pain. I have included a prescription for Augmentin which is an antibiotic to treat your tooth infection as well as Reglan which is a medicine that we can use to treat your nausea. Your labs today were unremarkable for any significant findings. Your x-ray does show a large amount of stool throughout your colon again consistent with the constipation so I would encourage you to increase your fluid intake to help keep the stool soft and allow your abdomen to continue to move it along. If needed you can take magnesium citrate as a laxative to help clear your bowels. This is available [id number] in taste like a strong version of 7-Up. Once you take the magnesium citrate I would not plan on going anywhere for the next 3 to 4 hours because once it kicks in you will be in the bathroom. If the lidocaine patch did help your abdominal pain I would recommend using Salonpas lidocaine patches which are a fraction of the parekh of the prescription ones and are as effective. This can be purchased at any of the local drug stores or [employer]. Sepsis Event Note (ED) - Evaluation Sepsis Screening Result: No Definite Risk - Focused Exam Vital Signs: Vital Signs Temp Pulse Resp BP Pulse Ox 09/05/20 17:14 36.3 C 96 14 119/50 L 96 - Problem List & Annotations (1) Abdominal bloating SNOMED Code(s): 416196695 Code(s): R14.0 - ABDOMINAL DISTENSION (GASEOUS) Status: Acute Priority: High Current Visit: Yes (2) Nausea and vomiting SNOMED Code(s): 58611670 Code(s): R11.2 - NAUSEA WITH VOMITING, UNSPECIFIED Status: Acute Priority: High Current Visit: Yes Qualifiers: Vomiting type: bilious vomiting Qualified Code(s): R11.14 - Bilious vomiting (3) Slow transit constipation SNOMED Code(s): 39316715 Code(s): K59.01 - SLOW TRANSIT CONSTIPATION Status: Acute Priority: High Current Visit: No - Problem List Review Problem List Initiated/Reviewed/Updated: Yes - My Orders Last 24 Hours: My Active Orders 09/05/20 17:31 Abdomen 2V AP Flat Upright [CR] Stat - Assessment/Plan Last 24 Hours: My Active Orders 09/05/20 17:31 Abdomen 2V AP Flat Upright [CR] Stat
[2020-09-05] MEDS ORDERED: Metoclopramide 10 MG Tab PO ONE (17:31)
[2020-09-05] MEDS ORDERED: Lidocaine 5% 700 MG Patch TRDERM ONE (17:31)
[2020-09-05] MEDS ORDERED: Amoxicillin/Clavulanate K 875-125 MG Tab PO ONE (17:33)
--- NOTE | 2020-09-08 09:08 | CR ---
Abdomen 2V AP Flat Upright CLINICAL HISTORY: Left lower quadrant pain FINDINGS: No free air is identified. Small intestinal configuration is nonacute. There are surgical clips in the right upper quadrant. There is retained stool throughout the colon. IMPRESSION: Nonacute intestinal gas pattern Moderate fecal retention
== END 2020-09-05 19:01 | disposition home or self-care (01) ==
LOC: JP.ED 16:20
DX: R10.32 Left lower quadrant pain (principal); R11.14 Bilious vomiting; K02.9 Dental caries, unspecified; R14.0 Abdominal distension (gaseous); K21.9 Gastro-esophageal reflux disease without esophagitis; R56.9 Unspecified convulsions; E66.9 Obesity, unspecified; Z68.32 Body mass index [BMI] 32.0-32.9, adult; Z88.5 Allergy status to narcotic agent; Z88.2 Allergy status to sulfonamides; Z88.8 Allergy status to other drugs, medicaments and biological substances; Z79.899 Other long term (current) drug therapy; Z72.0 Tobacco use
CPT/HCPCS: 36415; 74019; 74019-26; 80053; 85025; 99283; 99284; A9270-GY

== ENCOUNTER 2020-10-03 10:30 | Emergency (ER) | payer MEDICAID ==
[2020-10-03 10:45] VITALS: BP 135/92; PULSE 73
--- NOTE | 2020-10-03 11:28 | EDM.PDOC ---
ED HPI GENERAL MEDICAL PROBLEM - General Chief Complaint: Skin Complaint Stated Complaint: POSTSURGICAL WOUND CONCERNS Time Seen by Provider: 10/03/20 11:22 Source of Information: Reports: Patient, RN Notes Reviewed History Limitations: Reports: No Limitations - History of Present Illness INITIAL COMMENTS - FREE TEXT/NARRATIVE: 34-year-old female presents emergency department today with 2 issues she is concerned about her wound she recently had a oophorectomy about a week ago and she has some burning with urination as well as some nausea which is controlled with Zofran - Related Data Allergies Allergy/AdvReac Type Severity Reaction Status Date / Time tramadol Allergy Severe Seizure Verified 10/03/20 11:05 eszopiclone [From Lunesta] Allergy Hives Verified 10/03/20 11:05 Sulfa (Sulfonamide Allergy Nausea and Verified 10/03/20 11:05 Antibiotics) Vomiting Home Meds: Home Meds Melatonin 5 mg PO BEDTIME 11/30/17 [History] Omeprazole 40 mg PO BID 04/16/18 [History] Fluticasone Propionate [Flonase] 2 spray DRISS DAILY PRN 05/12/18 [History] SUMAtriptan [Imitrex] 50 mg PO ASDIRECTED PRN 05/12/18 [History] Lisdexamfetamine [Vyvanse] 30 mg PO DAILY 07/25/19 [History] Gabapentin [Neurontin] 600 mg PO BID 05/14/20 [History] diazePAM [Valium] 10 mg PO TID PRN 05/14/20 [History] traZODone 75 mg PO BEDTIME 05/14/20 [History] [place]-3/DHA/Epa/Fish Oil [Fish Oil 1,000 mg Softgel] 1 each PO DAILY 08/22/20 [History] ondansetron HCL [Zofran] 4 mg PO Q6H PRN 08/22/20 [History] Metoclopramide HCl [Reglan] 10 mg PO Q8HR PRN #10 tablet 09/05/20 [Rx] Past Medical History HEENT History: Reports: Otitis Media Gastrointestinal History: Reports: Cholelithiasis, GERD, Hiatal Hernia Genitourinary History: Reports: UTI, Recurrent, Other (See Below) Other Genitourinary History: lap ophorectomy 09/25/20 CARE PROVIDER History: Reports: Endometriosis, , Spontaneous Musculoskeletal History: Reports: Fracture Other Musculoskeletal History: Toe finger Neurological History: Reports: Concussion, Headaches, Chronic, Migraines, Seizure Psychiatric History: Reports: ADD, Anxiety, Bipolar, Depression, Psych Hospitalization(s), PTSD, Suicide Attempt, Other (See Below) Other 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 Endocrine/Metabolic History: Reports: Obesity/BMI 30+ Immunologic History: Reports: None Oncologic (Cancer) History: Reports: None Dermatologic History: Reports: None - Infectious Disease History Infectious Disease History: Reports: None, Chicken Pox - Past Surgical History Head Surgeries/Procedures: Reports: None HEENT Surgical History: Reports: Other (See Below) Other HEENT Surgeries/Procedures: ear tubes as a child Respiratory Surgical History: Reports: None GI Surgical History: Reports: Cholecystectomy, EGD, Matthew Fundoplication Female Surgical History: Reports: Hysterectomy, Oophorectomy, Salpingo- Oophorectomy, Other (See Below) Other Female Surgeries/Procedures: only has left ovary remaining Endocrine Surgical History: Reports: None Neurological Surgical History: Reports: None Musculoskeletal Surgical History: Reports: None Oncologic Surgical History: Reports: None Dermatological Surgical History: Reports: None Social & Family History - Family History Family Medical History: No Pertinent Family History - Tobacco Use Tobacco Use Status *Q: Current Every Day Tobacco User Years of Tobacco use: 15 Packs/Tins Daily: 0.1 - Caffeine Use Caffeine Use: Reports: Coffee, Energy Drinks, Soda, Tea - Living Situation & Occupation Living situation: Reports: (to her , lives in [place] by [employer]. They are raising children together) ED ROS GENERAL - Review of Systems Review Of Systems: See Below Constitutional: Denies: Fever, Chills Respiratory: Reports: No Symptoms Cardiovascular: Reports: No Symptoms GI/Abdominal: Reports: Nausea : Reports: Dysuria Skin: Reports: Wound ED EXAM, SKIN/RASH Exam: See Below Exam Limited By: No Limitations General Appearance: Alert, WD/WN, No Apparent Distress Respiratory/Chest: No Respiratory Distress GI/Abdominal: Soft, Non-Tender, Other (Wounds clean dry and intact) Course - Vital Signs Last Recorded V/S: Last Vital Signs Temp 97.9 F 10/03/20 11:13 Pulse 73 10/03/20 11:13 Resp 16 03/12/21 11:13 BP 135/92 H 03/12/21 11:13 Pulse Ox 100 10/03/20 11:13 - Orders/Labs/Meds Labs: Laboratory Tests 10/03/20 Range/Units 12:07 Urine Color Yellow (YELLOW) Urine Appearance Slightly cloudy A (CLEAR) Urine pH 5.5 (5.0-8.0) Ur Specific [place] 1.025 (1.008-1.030) Urine Protein Negative (NEGATIVE) mg/dL Urine Glucose (UA) Negative (NEGATIVE) mg/dL Urine Ketones Trace H (NEGATIVE) mg/dL Urine Occult Blood Negative (NEGATIVE) Urine Nitrite Negative (NEGATIVE) Urine Bilirubin Negative (NEGATIVE) Urine Urobilinogen 0.2 (0.2-1.0) EU/dL Ur Leukocyte Esterase Negative (NEGATIVE) Urine RBC Not seen (0-5) Urine WBC 0-5 (0-5) Ur Epithelial Cells Moderate Amorphous Sediment Not seen Urine Bacteria Moderate Urine Mucus Moderate Departure - Departure Time of Disposition: 12:43 Disposition: Home, Self-Care 01 Condition: Fair Clinical Impression: Encounter for post surgical wound check - Discharge Information Referrals: Hoda Barillas CNM [Primary Care Provider] - Forms: ED Department Discharge Additional Instructions: Continue with regular medications, please keep your follow-up appointment with your CARE PROVIDER Sepsis Event Note (ED) - Evaluation Sepsis Screening Result: No Definite Risk - Focused Exam Vital Signs: Vital Signs Temp Pulse Resp BP Pulse Ox 10/03/20 11:13 97.9 F 73 16 135/92 H 100 10/03/20 10:44 97.9 F 73 16 135/92 H 100 - Assessment/Plan Plan: Assessment Acuity = acute Site and laterality = wound check Etiology = postop surgery Manifestations = none Location of injury = Home Lab values = urinalysis unremarkable Plan Mainly reassurance keep follow-up appointment with CARE PROVIDER next week This note was dictated using [employer] voice recognition software please call with any questions on syntax or grammar.
== END 2020-10-03 13:01 | disposition home or self-care (01) ==
LOC: JP.ED 10:30
DX: Z48.816 Encounter for surgical aftercare following surgery on the genitourinary system (principal); Z72.0 Tobacco use; K21.9 Gastro-esophageal reflux disease without esophagitis; E66.9 Obesity, unspecified; Z68.32 Body mass index [BMI] 32.0-32.9, adult; Z79.899 Other long term (current) drug therapy
CPT/HCPCS: 81001; 99282; 99283

== ENCOUNTER 2020-10-21 11:58 | Emergency (ER) | payer MEDICAID ==
--- NOTE | 2020-10-21 12:41 | EDM.PDOC ---
ED HPI GENERAL MEDICAL PROBLEM - General Chief Complaint: General Stated Complaint: SOB, CHEST PAIN Time Seen by Provider: 10/21/20 12:28 Source of Information: Reports: Patient, Family, Old Records, RN Notes Reviewed History Limitations: Reports: No Limitations - History of Present Illness INITIAL COMMENTS - FREE TEXT/NARRATIVE: 34-year-old female presents emergency department a complaint of shortness of breath, she was evaluated in the clinic yesterday Covid test was done and results are pending as she was prescribed an albuterol inhaler which she states does help some but has not relieved her shortness of breath. Has had some chest pains no nausea vomiting no fevers no diaphoresis, Covid test done yesterday in clinic was negative, prescribed Augmentin yesterday has not started the medication Throat Pain Score (Numeric/FACES): 5 - Related Data Allergies Allergy/AdvReac Type Severity Reaction Status Date / Time tramadol Allergy Severe Seizure Verified 10/03/20 11:05 eszopiclone [From Lunesta] Allergy Hives Verified 10/03/20 11:05 Sulfa (Sulfonamide Allergy Nausea and Verified 10/03/20 11:05 Antibiotics) Vomiting Home Meds: Home Meds Melatonin 5 mg PO BEDTIME 11/30/17 [History] Omeprazole 40 mg PO BID 04/16/18 [History] Fluticasone Propionate [Flonase] 2 spray DRISS DAILY PRN 05/12/18 [History] SUMAtriptan [Imitrex] 50 mg PO ASDIRECTED PRN 05/12/18 [History] traZODone 75 mg PO BEDTIME 05/14/20 [History] [place]-3/DHA/Epa/Fish Oil [Fish Oil 1,000 mg Softgel] 1 each PO DAILY 08/22/20 [History] ondansetron HCL [Zofran] 4 mg PO Q6H PRN 08/22/20 [History] Metoclopramide HCl [Reglan] 10 mg PO Q8HR PRN #10 tablet 09/05/20 [Rx] Albuterol Sulfate [Albuterol Sulfate Hfa] 2 inhalation IH Q4HR 10/21/20 [History] Past Medical History HEENT History: Reports: Otitis Media Gastrointestinal History: Reports: Cholelithiasis, GERD, Hiatal Hernia Genitourinary History: Reports: UTI, Recurrent, Other (See Below) Other Genitourinary History: lap ophorectomy 09/25/20 [employer] History: Reports: Endometriosis, , Spontaneous Musculoskeletal History: Reports: Fracture Other Musculoskeletal History: Toe finger Neurological History: Reports: Concussion, Headaches, Chronic, Migraines, Seizure Psychiatric History: Reports: ADD, Anxiety, Bipolar, Depression, Psych Hospitalization(s), PTSD, Suicide Attempt, Other (See Below) Other 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 Endocrine/Metabolic History: Reports: Obesity/BMI 30+ - Infectious Disease History Infectious Disease History: Reports: Chicken Pox - Past Surgical History Head Surgeries/Procedures: Reports: None HEENT Surgical History: Reports: Other (See Below) Other HEENT Surgeries/Procedures: ear tubes as a child Respiratory Surgical History: Reports: None GI Surgical History: Reports: Cholecystectomy, EGD, Matthew Fundoplication Female Surgical History: Reports: Hysterectomy, Oophorectomy, Salpingo- Oophorectomy, Other (See Below) Other Female Surgeries/Procedures: only has left ovary remaining Endocrine Surgical History: Reports: None Neurological Surgical History: Reports: None Musculoskeletal Surgical History: Reports: None Oncologic Surgical History: Reports: None Dermatological Surgical History: Reports: None Social & Family History - Family History Family Medical History: No Pertinent Family History - Tobacco Use Tobacco Use Status *Q: Current Every Day Tobacco User Years of Tobacco use: 22 Packs/Tins Daily: 0.5 - Caffeine Use Caffeine Use: Reports: Coffee - Recreational Drug Use Recreational Drug Use: No - Living Situation & Occupation Living situation: Reports: (to her , lives in [place] by [address]. They are raising children together) ED ROS GENERAL - Review of Systems Review Of Systems: See Below Constitutional: Denies: Fever, Chills HEENT: Reports: Throat Pain, Throat Swelling Respiratory: Reports: Shortness of Breath. Denies: Wheezing, Cough, Sputum Cardiovascular: Reports: Chest Pain, Dyspnea on Exertion GI/Abdominal: Reports: No Symptoms ED EXAM, GENERAL - Physical Exam Exam: See Below Exam Limited By: No Limitations General Appearance: Alert, WD/WN, No Apparent Distress Respiratory/Chest: No Respiratory Distress, Lungs Clear, Normal Breath Sounds, No Accessory Muscle Use, Chest Non-Tender Cardiovascular: Regular Rate, Rhythm, No Murmur Course - Vital Signs Last Recorded V/S: Last Vital Signs Temp 98.2 F 10/21/20 12:09 Pulse 83 10/21/20 15:31 Resp 16 10/21/20 12:09 BP 128/88 10/21/20 15:31 Pulse Ox 99 10/21/20 15:31 - Orders/Labs/Meds Orders: Active Orders 24 hr Category Date Time Status Peripheral IV Care [RC] . DIRECTED Care 10/21/20 14:00 Active Iopamidol [Isovue-370 (76%)] Med 10/21/20 14:15 Active 75 ml IV . DIRECTED Sodium Chloride 0.9% [Normal Saline] 1,000 ml Med 10/21/20 14:00 Active IV ASDIRECTED Sodium Chloride 0.9% [Saline Flush] Med 10/21/20 13:59 Active 10 ml FLUSH ASDIRECTED PRN Sodium Chloride 0.9% [Saline Flush] Med 10/21/20 14:09 Active 10 ml FLUSH ONETIME PRN Peripheral IV Insertion Adult [OM.PC] Urgent Oth 10/21/20 13:59 Ordered Medication Orders Sodium Chloride (Normal Saline) 1,000 mls @ 500 mls/hr IV ASDIRECTED TAYLOR Last Admin: 10/21/20 14:52 Dose: 500 mls/hr Documented by: KRYSTEN Iopamidol (Iopamidol 755 Mg/Ml 100 Ml Bottle) 75 ml IV . DIRECTED [facility] Last Admin: 10/21/20 14:29 Dose: 75 ml Documented by: Admin: 10/21/20 14:22 Dose: 75 ml Documented by: NORA Sodium Chloride (Sodium Chloride 0.9% 10 Ml Syringe) 10 ml FLUSH ASDIRECTED PRN PRN Reason: Keep Vein Open Last Admin: 10/21/20 14:28 Dose: 10 ml Documented by: Admin: 10/21/20 14:10 Dose: 10 ml Documented by: KRYSTEN Sodium Chloride (Sodium Chloride 0.9% 10 Ml Syringe) 10 ml FLUSH ONETIME PRN PRN Reason: PER RADIOLOGY PROTOCOL Last Admin: 10/21/20 14:22 Dose: 10 ml Documented by: NORA Labs: Laboratory Tests 10/21/20 10/21/20 10/21/20 Range/Units 12:48 12:48 12:48 WBC 7.5 (4.5-11.0) K/uL RBC 5.08 (3.30-5.50) M/uL Hgb 14.0 (12.0-15.0) g/dL Hct 42.7 (36.0-48.0) % MCV 84 (80-98) fL MCH 28 (27-31) pg MCHC 33 (32-36) % Plt Count 278 (150-400) K/uL Neut % (Auto) 57 (36-66) % Lymph % (Auto) 35 (24-44) % Dyer % (Auto) 6 (2-6) % Eos % (Auto) 2 (2-4) % Baso % (Auto) 1 (0-1) % Sodium 143 (140-148) mmol/L Potassium 4.0 (3.6-5.2) mmol/L Chloride 104 (100-108) mmol/L Carbon Dioxide 28 (21-32) mmol/L Anion Gap 11.5 (5.0-14.0) mmol/L BUN 22 H (7-18) mg/dL Creatinine 0.9 (0.6-1.0) mg/dL Est Cr Clr Drug Dosing 69.66 mL/min Estimated GFR (MDRD) > 60 (>60) Glucose 113 H (74-106) mg/dL Lactic Acid 1.3 (0.4-2.0) mmol/L Calcium 9.5 (8.5-10.1) mg/dL Troponin I < 0.017 (0.000-0.056) ng/mL Meds: Medications Generic Name Dose Route Start Last Admin Trade Name Freq PRN Reason Stop Dose Admin Sodium Chloride 1,000 mls @ 500 mls/hr 10/21/20 14:00 10/21/20 14:52 Normal Saline IV 500 mls/hr ASDIRECTED TAYLOR Administration Iopamidol 75 ml 10/21/20 14:15 10/21/20 14:29 Iopamidol 755 Mg/Ml 100 Ml Bottle IV 75 ml . DIRECTED TAYLOR Administration Sodium Chloride 10 ml 10/21/20 13:59 10/21/20 14:28 Sodium Chloride 0.9% 10 Ml Syringe FLUSH 10 ml ASDIRECTED PRN Administration Keep Vein Open Sodium Chloride 10 ml 10/21/20 14:09 10/21/20 14:22 Sodium Chloride 0.9% 10 Ml Syringe FLUSH 10 ml ONETIME PRN Administration PER RADIOLOGY PROTOCOL Discontinued Medications Generic Name Dose Route Start Last Admin Trade Name Carlos Enrique PRN Reason Stop Dose Admin Sodium Chloride 89 mls @ 3 mls/sec 10/21/20 14:09 10/21/20 14:29 Normal Saline IV 10/21/20 14:10 3 mls/sec ONETIME ONE Administration - Re-Assessments/Exams Free Text/Narrative Re-Assessment/Exam: 10/21/20 14:00 I did take her for a walk she walked half the length in the emergency department started out at 100% SPO2 dropped to 88% SPO2 heart rate was at 81 increased to 113 Departure - Departure Time of Disposition: 16:08 Disposition: Home, Self-Care 01 Condition: Fair Clinical Impression: Exertional dyspnea - Discharge Information Instructions: Shortness of Breath, Adult, [id number] Referrals: Hoda Barillas CNM [Primary Care Provider] - Forms: ED Department Discharge Additional Instructions: Pulmonary function lab will call you for an appointment time tomorrow to have your test done I will discuss the results with you at the completion of the test Sepsis Event Note (ED) - Evaluation Sepsis Screening Result: No Definite Risk - Focused Exam Vital Signs: Vital Signs Temp Pulse Resp BP Pulse Ox 10/21/20 15:31 83 128/88 99 10/21/20 12:09 98.2 F 94 16 148/103 H 100 - My Orders Last 24 Hours: My Active Orders 10/21/20 13:59 Sodium Chloride 0.9% [Saline Flush] 10 ml FLUSH ASDIRECTED PRN Peripheral IV Insertion Adult [OM.PC] Urgent 10/21/20 14:00 Peripheral IV Care [RC] . DIRECTED Sodium Chloride 0.9% [Normal Saline] 1,000 ml IV ASDIRECTED 10/21/20 14:09 Sodium Chloride 0.9% [Saline Flush] 10 ml FLUSH ONETIME PRN 10/21/20 14:15 Iopamidol [Isovue-370 (76%)] 75 ml IV . DIRECTED - Assessment/Plan Last 24 Hours: My Active Orders 10/21/20 13:59 Sodium Chloride 0.9% [Saline Flush] 10 ml FLUSH ASDIRECTED PRN Peripheral IV Insertion Adult [OM.PC] Urgent 10/21/20 14:00 Peripheral IV Care [RC] . DIRECTED Sodium Chloride 0.9% [Normal Saline] 1,000 ml IV ASDIRECTED 10/21/20 14:09 Sodium Chloride 0.9% [Saline Flush] 10 ml FLUSH ONETIME PRN 10/21/20 14:15 Iopamidol [Isovue-370 (76%)] 75 ml IV . DIRECTED Plan: Assessment Acuity = acute Site and laterality = dyspnea on exertion Etiology = unknown Manifestations = none Location of injury = Home Lab values = CBC, BMP, troponin within normal limits chest x-ray shows no acute process angiogram shows no pulmonary embolism Plan Because I did observe her become hypoxic and tachycardic with minimal exertion f urther work-up needs to be done I have set her up for pulmonary function test also consideration for VCD is still in the differential. She will report for pulmonary function test tomorrow at which time I will review and discuss results with her This note was dictated using [employer] voice recognition software please call with any questions on syntax or grammar.
--- NOTE | 2020-10-21 13:17 | CR ---
CHEST: 2 view CLINICAL HISTORY:SOB COMPARISON:2011 FINDINGS: The heart size, pulmonary vascularity and hilar structures are normal. No infiltrate effusion or pneumothorax is seen. IMPRESSION: No acute cardiopulmonary process.
[2020-10-21] MEDS ORDERED: Sodium Chloride 0.9% 1,000 ML IV SCH (14:00)
[2020-10-21] MEDS ORDERED: Sodium Chloride 0.9% 10 ML Syringe FLUSH PRN (14:09)
[2020-10-21] MEDS: Sodium Chloride 0.9% 10 ML Syringe FLUSH PRN ×2 (14:10→14:28)
[2020-10-21] MEDS: Iopamidol 755 Mg/ML 100 ML Bottle IV SCH ×2 (14:22→14:29)
--- NOTE | 2020-10-21 14:51 | CT ---
Ang Chest CLINICAL HISTORY: Hypoxia TECHNIQUE: Thin section axial contiguous tomographic sections were taken through the chest after bolus IV iodinated contrast administration. Coronal and sagittal images were reconstructed. Auto dosage reduction and iterative reconstruction techniques employed. FINDINGS: Lung window images show no infiltrates. There is a 3 mm nodule in the right upper lobe on image #72 there may be some minimal central cavitation. This may be artifactual. There is a 4 mm pleural-based nodule in the left upper lobe medially on image #48. There is a 4 mm pleural-based nodule in the left lower lobe posteriorly on image #71. This also appears to have some central cavitation. No infiltrates are seen. No mediastinal mass or lymphadenopathy is identified. There was less than optimal opacification of the pulmonary arteries with moderate residual contrast in the brachycephalic vein and SCV. This may be related to cardiac output. No definite filling defects are identified in the pulmonary arteries or pulmonary outflow track. IMPRESSION: No evidence pulmonary embolus Scattered 3 and 4 mm nodules bilaterally some of which appears slightly cavitated. Short-term follow-up noncontrast CT recommended in 6 months.
[2020-10-21 15:32] VITALS: BP 128/88; PULSE 83
== END 2020-10-21 16:18 | disposition home or self-care (01) ==
LOC: JP.ED 11:58
DX: R06.00 Dyspnea, unspecified (principal); R07.9 Chest pain, unspecified; R07.0 Pain in throat; K21.9 Gastro-esophageal reflux disease without esophagitis; E66.9 Obesity, unspecified; Z68.29 Body mass index [BMI] 29.0-29.9, adult; Z72.0 Tobacco use; Z88.5 Allergy status to narcotic agent; Z88.8 Allergy status to other drugs, medicaments and biological substances; Z88.2 Allergy status to sulfonamides; Z79.899 Other long term (current) drug therapy
CPT/HCPCS: 36415; 71046; 71275; 80048; 83605; 84484; 85025; 99283; 99285; J7030; Q9967

== ENCOUNTER 2020-10-24 17:57 | Emergency (ER) | payer MEDICAID ==
[2020-10-24] MEDS ORDERED: Dexamethasone 4 MG/ML SDV IVPUSH ONE (18:35)
[2020-10-24] MEDS ORDERED: Sodium Chloride 0.9% 10 ML Syringe FLUSH PRN (18:35)
[2020-10-24] MEDS ORDERED: diphenhydrAMINE 50 MG/ML SDV IVPUSH ONE (18:35)
[2020-10-24] MEDS ORDERED: Ketorolac 30 MG/ML SDV IVPUSH ONE (18:35)
[2020-10-24] MEDS ORDERED: Diazepam 5 MG Tab PO STA (18:37)
[2020-10-24] MEDS ORDERED: Diazepam 5 MG Tab PO ONE (18:53)
[2020-10-24 19:27] VITALS: BP 111/71; PULSE 76
--- NOTE | 2020-10-24 19:47 | EDM.PDOC ---
ED HPI GENERAL MEDICAL PROBLEM - General Chief Complaint: Headache Stated Complaint: HEAD/ANXIETY Time Seen by Provider: 10/24/20 18:21 Source of Information: Reports: Patient History Limitations: Reports: No Limitations - History of Present Illness INITIAL COMMENTS - FREE TEXT/NARRATIVE: Ivette 34-year-old female who is well-known to me presenting to the ED for evaluation of left-sided head pain, anxiety, feeling overwhelmed, chest pain and some shortness of breath. Patient has been seen and evaluated but reports that the symptoms started about 2 weeks ago and have continued to worsen. The headache is become much more intense. The patient tried to work tonight at [employer] but was unable to concentrate or even take care of a single customer prompting her to come in. She feels overwhelmed because she also has a [id number] mom with 3 kids and she is responsible for majority of their caregiving. Her also works several jobs to try to keep food on the table and kids clothed. On top of this she is overwhelmed by having a relatively new puppy. These things combined is made the patient feel like she is being crushed. She is complaining of some shortness of breath and cough. She does smoke and has increased her smoking use due to her stressors recently. She reports that she sees a counselor every Tuesday and has been working through some issues. She states that after surgery she was feeling good and discontinuing her use of the Valium and her SSRI. It was shortly thereafter that her downward spiral started. He feels very depressed. She feels helpless and that nobody is listening to her. Headache Pain Score (Numeric/FACES): 8 - Related Data Allergies Allergy/AdvReac Type Severity Reaction Status Date / Time tramadol Allergy Severe Seizure Verified 10/24/20 18:12 eszopiclone [From Lunesta] Allergy Hives Verified 10/24/20 18:12 Sulfa (Sulfonamide Allergy Nausea and Verified 10/24/20 18:12 Antibiotics) Vomiting Home Meds: Home Meds Melatonin 5 mg PO BEDTIME 11/30/17 [History] Omeprazole 40 mg PO BID 04/16/18 [History] Fluticasone Propionate [Flonase] 2 spray DRISS DAILY PRN 05/12/18 [History] SUMAtriptan [Imitrex] 50 mg PO ASDIRECTED PRN 05/12/18 [History] traZODone 75 mg PO BEDTIME 05/14/20 [History] [place]-3/DHA/Epa/Fish Oil [Fish Oil 1,000 mg Softgel] 1 each PO DAILY 08/22/20 [History] ondansetron HCL [Zofran] 4 mg PO Q6H PRN 08/22/20 [History] Metoclopramide HCl [Reglan] 10 mg PO Q8HR PRN #10 tablet 09/05/20 [Rx] Albuterol Sulfate [Albuterol Sulfate Hfa] 2 inhalation IH Q4HR 10/21/20 [History] diazePAM [Valium] 1 mg PO BID 2 Days #4 tab 10/24/20 [Rx] Past Medical History - Past Health History Medical/Surgical History: Denies Medical/Surgical History HEENT History: Reports: Otitis Media Cardiovascular History: Reports: None Respiratory History: Reports: None Gastrointestinal History: Reports: Cholelithiasis, GERD, Hiatal Hernia Genitourinary History: Reports: UTI, Recurrent, Other (See Below) Other Genitourinary History: lap ophorectomy 09/25/20 [employer] History: Reports: Endometriosis, , Spontaneous Musculoskeletal History: Reports: Fracture Other Musculoskeletal History: Toe finger Neurological History: Reports: Concussion, Headaches, Chronic, Migraines, Seizure Psychiatric History: Reports: ADD, Anxiety, Bipolar, Depression, Psych Hos pitalization(s), PTSD, Suicide Attempt, Other (See Below) Other 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 Endocrine/Metabolic History: Reports: Obesity/BMI 30+ Hematologic History: Reports: None Immunologic History: Reports: None Oncologic (Cancer) History: Reports: None Dermatologic History: Reports: None - Infectious Disease History Infectious Disease History: Reports: Chicken Pox - Past Surgical History Head Surgeries/Procedures: Reports: None HEENT Surgical History: Reports: Other (See Below) Other HEENT Surgeries/Procedures: ear tubes as a child Respiratory Surgical History: Reports: None GI Surgical History: Reports: Cholecystectomy, EGD, Matthew Fundoplication Female Surgical History: Reports: Hysterectomy, Oophorectomy, Salpingo- Oophorectomy, Other (See Below) Other Female Surgeries/Procedures: only has left ovary remaining Endocrine Surgical History: Reports: None Neurological Surgical History: Reports: None Musculoskeletal Surgical History: Reports: None Oncologic Surgical History: Reports: None Dermatological Surgical History: Reports: None Social & Family History - Family History Family Medical History: No Pertinent Family History - Tobacco Use Tobacco Use Status *Q: Current Every Day Tobacco User Years of Tobacco use: 15 Packs/Tins Daily: 0.5 Used Tobacco, but Quit: No Second Hand Smoke Exposure: Yes - Caffeine Use Caffeine Use: Reports: Coffee - Recreational Drug Use Recreational Drug Use: No - Living Situation & Occupation Living situation: Reports: (to her , lives in [place] by [place]. They are raising children together) ED ROS GENERAL - Review of Systems Review Of Systems: See Below Constitutional: Reports: No Symptoms HEENT: Reports: Rhinitis, Sinus Problem Respiratory: Reports: Shortness of Breath, Wheezing Cardiovascular: Reports: Chest Pain Endocrine: Reports: No Symptoms GI/Abdominal: Reports: No Symptoms : Reports: No Symptoms Musculoskeletal: Reports: No Symptoms Skin: Reports: No Symptoms Neurological: Reports: Dizziness, Headache (Severe left-sided frontal headache) Psychiatric: Reports: Agitation (Increased agitation over the last 48 hours), Anxiety (To increase in anxiety over the last 2 weeks. Patient is feeling like she is being crushed by responsibilities.), Depression. Denies: Confusion, Hallucinations, Homicidal Ideation, Suicidal Ideation Hematologic/Lymphatic: Reports: No Symptoms Immunologic: Reports: Seasonal Allergy (She takes Claritin and Flonase) - Physical Exam Exam: See Below Exam Limited By: No Limitations General Appearance: Alert, Anxious, Moderate Distress Eye Exam: Bilateral Eye: EOMI, PERRL Ears: Normal External Exam, Other (Left tympanic membrane is erythematous and distended with a suppurative effusion.) Nose: Nasal Swelling, Nasal Drainage, Other (Left frontal and maxillary tenderness to percussion.) Throat/Mouth: Normal Inspection, Normal Lips, Normal Oropharynx, Normal Voice, No Airway Compromise Head Exam: Atraumatic, Normocephalic Neck: Normal Inspection, Supple, Non-Tender, Lymphadenopathy (L). No: Lymphadenopathy (R) Respiratory/Chest: No Respiratory Distress, Wheezing (Expiratory wheezing bilaterally in the bases) Cardiovascular: Normal Peripheral Pulses, Regular Rate, Rhythm, No Murmur GI/Abdominal: Normal Bowel Sounds, Soft, Non-Tender Neuro Exam (Abbreviated): Alert, Oriented, CN II-XII Intact, Normal Cognition, No Motor/Sensory Deficits Back Exam: Normal Inspection, Full Range of Motion Extremities: Normal Inspection, Normal Range of Motion Psychiatric: Normal Affect, Normal Mood Skin Exam: Warm, Dry, Intact, Normal Color Course - Vital Signs Last Recorded V/S: Last Vital Signs Temp 36.8 C 10/24/20 18:14 Pulse 76 10/24/20 19:27 Resp 22 H 10/24/20 18:14 BP 111/71 10/24/20 19:27 Pulse Ox 98 10/24/20 19:27 - Orders/Labs/Meds Orders: Active Orders 24 hr Category Date Time Status Sodium Chloride 0.9% [Saline Flush] Med 10/24/20 18:35 Active 10 ml FLUSH ASDIRECTED PRN Saline Lock Insert [OM.PC] Routine Oth 10/24/20 18:35 Ordered Medication Orders Sodium Chloride (Sodium Chloride 0.9% 10 Ml Syringe) 10 ml FLUSH ASDIRECTED PRN PRN Reason: Keep Vein Open Last Admin: 10/24/20 19:18 Dose: 10 ml Documented by: JEROME Labs: Laboratory Tests 10/24/20 10/24/20 Range/Units 18:48 18:48 WBC 9.9 (4.5-11.0) K/uL RBC 4.79 (3.30-5.50) M/uL Hgb 13.5 (12.0-15.0) g/dL Hct 40.3 (36.0-48.0) % MCV 84 (80-98) fL MCH 28 (27-31) pg MCHC 34 (32-36) % Plt Count 231 (150-400) K/uL Neut % (Auto) 57 (36-66) % Lymph % (Auto) 35 (24-44) % Walker % (Auto) 7 H (2-6) % Eos % (Auto) 1 L (2-4) % Baso % (Auto) 1 (0-1) % Sodium 148 (140-148) mmol/L Potassium 3.8 (3.6-5.2) mmol/L Chloride 105 (100-108) mmol/L Carbon Dioxide 27 (21-32) mmol/L Anion Gap 16.5 H (5.0-14.0) mmol/L BUN 14 (7-18) mg/dL Creatinine 1.0 (0.6-1.0) mg/dL Est Cr Clr Drug Dosing 62.69 mL/min Estimated GFR (MDRD) > 60 (>60) Glucose 86 (74-106) mg/dL Calcium 9.8 (8.5-10.1) mg/dL Total Bilirubin 0.3 D (0.2-1.0) mg/dL AST 16 (15-37) U/L ALT 29 (12-78) U/L Alkaline Phosphatase 78 (46-116) U/L C-Reactive Protein 0.24 (0.0-0.3) mg/dL Total Protein 7.6 (6.4-8.2) g/dL Albumin 4.0 (3.4-5.0) g/dL Globulin 3.6 H (2.3-3.5) g/dL Albumin/Globulin Ratio 1.1 L (1.2-2.2) Meds: Medications Generic Name Dose Route Start Last Admin Trade Name Freq PRN Reason Stop Dose Admin Sodium Chloride 10 ml 10/24/20 18:35 10/24/20 19:18 Sodium Chloride 0.9% 10 Ml Syringe FLUSH 10 ml ASDIRECTED PRN Administration Keep Vein Open Discontinued Medications Generic Name Dose Route Start Last Admin Trade Name Freq PRN Reason Stop Dose Admin Dexamethasone 10 mg 10/24/20 18:35 10/24/20 19:09 Dexamethasone 4 Mg/Ml Sdv IVPUSH 10/24/20 18:36 10 mg ONETIME ONE Administration Diazepam 1 mg 10/24/20 18:37 10/24/20 19:19 Diazepam 5 Mg Tab PO 10/24/20 18:38 Not Given ONETIME STA Diazepam 2.5 mg 10/24/20 18:53 10/24/20 19:04 Diazepam 5 Mg Tab PO 10/24/20 18:54 2.5 mg ONETIME ONE Administration Diphenhydramine HCl 25 mg 10/24/20 18:35 10/24/20 19:10 Diphenhydramine 50 Mg/Ml Sdv IVPUSH 10/24/20 18:36 25 mg ONETIME ONE Administration Ketorolac Tromethamine 30 mg 10/24/20 18:35 10/24/20 19:10 Ketorolac 30 Mg/Ml Sdv IVPUSH 10/24/20 18:36 30 mg ONETIME ONE Administration - Radiology Interpretation Free Text/Narrative:: I reviewed the two-view chest x-ray which is unremarkable for any acute infiltrates or abnormalities. - Re-Assessments/Exams Free Text/Narrative Re-Assessment/Exam: 10/24/20 19:51 evaluation of the patient, it does seem that she is having an acute anxiety reaction to her stressors. Exacerbating this is a severe left- sided head pain secondary to pansinusitis on the left and an otitis media. We will put her on Augmentin 875 mg twice daily for the next 7 days to treat the infection. She does have expiratory wheezes that are more consistent with emphysema and the patient is a smoker, however, we will get a chest x-ray to evaluate for any acute infiltrates. Labs were also obtained including a CBC and comprehensive metabolic panel. These were unremarkable for any significant findings. The patient did receive a liter of normal saline, Toradol 30 mg IV, dexamethasone 10 mg IV, Compazine 10 mg IV, and diphenhydramine 25 mg IV for treatment of her headache. Addition she received a dose of diazepam 2.5 mg p.o. After about 45 minutes she was resting comfortably. 10/24/20 20:07 x-ray is unremarkable for any abnormalities. At this time, I feel the patient is suitable for discharge home in satisfactory condition. Work note was provided discussing her resting this weekend. Indications return to the ED were discussed. We will send her home with a small prescription of dotson epam 1 mg twice daily as needed with 4 tabs being prescribed. She is seeing her primary care provider on Tuesday. All questions were answered prior to discharge. Departure - Departure Time of Disposition: 20:08 Disposition: Home, Self-Care 01 Clinical Impression: Anxiety as acute reaction to exceptional stress, Left otitis media with effusion Acute pansinusitis Qualifiers: Recurrence: not specified as recurrent Qualified Code(s): J01.40 - Acute pansinusitis, unspecified - Discharge Information Instructions: Otitis Media, Adult, [id number], Sinusitis, Adult, [id number], Supporting Someone With Anxiety, Managing Anxiety, Adult Referrals: PCP,None [Primary Care Provider] - Care Plan Goals: I have sent the prescription out to the [facility] for Augmentin to treat your sinus and ear infection. I also have printed a prescription for your diazepam 1 mg twice daily as needed for anxiety through the weekend. Please follow-up with your primary care provider on Tuesday if you need additional doses in for recheck. I have also included a work note having you rest through the weekend. Sepsis Event Note (ED) - Evaluation Sepsis Screening Result: No Definite Risk - Focused Exam Vital Signs: Vital Signs Temp Pulse Resp BP Pulse Ox 10/24/20 19:27 76 111/71 98 10/24/20 18:14 36.8 C 101 H 22 H 142/102 H 100 10/24/20 18:11 36.8 C 101 H 22 H 142/102 H 100 - Problem List & Annotations (1) Acute pansinusitis SNOMED Code(s): 2213788 Code(s): J01.40 - ACUTE PANSINUSITIS, UNSPECIFIED Status: Acute Priority: High Current Visit: Yes Qualifiers: Recurrence: not specified as recurrent Qualified Code(s): J01.40 - Acute pansinusitis, unspecified (2) Anxiety as acute reaction to exceptional stress SNOMED Code(s): 54657975 Code(s): F41.1 - GENERALIZED ANXIETY DISORDER; F43.0 - ACUTE STRESS REACTION Status: Acute Priority: High Current Visit: Yes (3) Left otitis media with effusion SNOMED Code(s): 12272688, 1530231424 Code(s): H65.92 - UNSPECIFIED NONSUPPURATIVE OTITIS MEDIA, LEFT EAR Status: Acute Priority: High Current Visit: Yes - Problem List Review Problem List Initiated/Reviewed/Updated: Yes - My Orders Last 24 Hours: My Active Orders 10/24/20 18:35 Sodium Chloride 0.9% [Saline Flush] 10 ml FLUSH ASDIRECTED PRN Saline Lock Insert [OM.PC] Routine - Assessment/Plan Last 24 Hours: My Active Orders 10/24/20 18:35 Sodium Chloride 0.9% [Saline Flush] 10 ml FLUSH ASDIRECTED PRN Saline Lock Insert [OM.PC] Routine
--- NOTE | 2020-10-27 09:03 | CR ---
CHEST: 2 view CLINICAL HISTORY:Dyspnea COMPARISON:CT 10/21/2020 FINDINGS: The heart size, pulmonary vascularity and hilar structures are normal. No infiltrate effusion or pneumothorax is seen. 3 mm nodule seen on chest CT is also seen in the lateral costophrenic angle IMPRESSION: No acute cardiopulmonary process.
== END 2020-10-24 20:40 | disposition home or self-care (01) ==
LOC: JP.ED 17:57
DX: J01.40 Acute pansinusitis, unspecified (principal); F41.9 Anxiety disorder, unspecified; F43.0 Acute stress reaction; H65.192 Other acute nonsuppurative otitis media, left ear; K21.9 Gastro-esophageal reflux disease without esophagitis; E66.9 Obesity, unspecified; Z68.29 Body mass index [BMI] 29.0-29.9, adult; Z88.5 Allergy status to narcotic agent; Z88.8 Allergy status to other drugs, medicaments and biological substances; Z88.2 Allergy status to sulfonamides; Z79.899 Other long term (current) drug therapy
CPT/HCPCS: 36415; 71046; 80053; 85025; 86140; 96374; 96375; 99285; A9270; J1100; J1200; J1885; 99283

== ENCOUNTER 2021-01-30 15:30 | Emergency (ER) | payer MEDICAID ==
--- NOTE | 2021-01-30 16:26 | EDM.PDOC ---
ED HPI GENERAL MEDICAL PROBLEM - General Chief Complaint: Behavioral/Psych Stated Complaint: STRESS, NOT EATING, Time Seen by Provider: 01/30/21 16:24 Source of Information: Reports: Other (Patient not evaluated, patient eloped prior to evaluation) - History of Present Illness INITIAL COMMENTS - FREE TEXT/NARRATIVE: Patient became upset when asked to complete weight on scale. Patient then walked out of ER after stating she could not walk. - Related Data Allergies Allergy/AdvReac Type Severity Reaction Status Date / Time tramadol Allergy Severe Seizure Verified 10/24/20 18:12 eszopiclone [From Lunesta] Allergy Hives Verified 10/24/20 18:12 Sulfa (Sulfonamide Allergy Nausea and Verified 10/24/20 18:12 Antibiotics) Vomiting Home Meds: Home Meds Melatonin 5 mg PO BEDTIME 11/30/17 [History] Omeprazole 40 mg PO BID 04/16/18 [History] Fluticasone Propionate [Flonase] 2 spray DRISS DAILY PRN 05/12/18 [History] SUMAtriptan [Imitrex] 50 mg PO ASDIRECTED PRN 05/12/18 [History] traZODone 75 mg PO BEDTIME 05/14/20 [History] [place]-3/DHA/Epa/Fish Oil [Fish Oil 1,000 mg Softgel] 1 each PO DAILY 08/22/20 [History] ondansetron HCL [Zofran] 4 mg PO Q6H PRN 08/22/20 [History] Metoclopramide HCl [Reglan] 10 mg PO Q8HR PRN #10 tablet 09/05/20 [Rx] Albuterol Sulfate [Albuterol Sulfate Hfa] 2 inhalation IH Q4HR 10/21/20 [ History] diazePAM [Valium] 1 mg PO BID 2 Days #4 tab 10/24/20 [Rx] Past Medical History - Past Health History Medical/Surgical History: Denies Medical/Surgical History HEENT History: Reports: Otitis Media Cardiovascular History: Reports: None Respiratory History: Reports: None Gastrointestinal History: Reports: Cholelithiasis, GERD, Hiatal Hernia Genitourinary History: Reports: UTI, Recurrent, Other (See Below) Other Genitourinary History: lap ophorectomy 09/25/20 [employer] History: Reports: Endometriosis, , Spontaneous Musculoskeletal History: Reports: Fracture Other Musculoskeletal History: Toe finger Neurological History: Reports: Concussion, Headaches, Chronic, Migraines, Seizure Psychiatric History: Reports: ADD, Anxiety, Bipolar, Depression, Psych Hospitalization(s), PTSD, Suicide Attempt, Other (See Below) 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 Endocrine/Metabolic History: Reports: Obesity/BMI 30+ Hematologic History: Reports: None Immunologic History: Reports: None Oncologic (Cancer) History: Reports: None Dermatologic History: Reports: None - Infectious Disease History Infectious Disease History: Reports: Chicken Pox - Past Surgical History Head Surgeries/Procedures: Reports: None HEENT Surgical History: Reports: Other (See Below) Other HEENT Surgeries/Procedures: ear tubes as a child Respiratory Surgical History: Reports: None GI Surgical History: Reports: Cholecystectomy, EGD, Matthew Fundoplication Female Surgical History: Reports: Hysterectomy, Oophorectomy, Salpingo- Oophorectomy, Other (See Below) Other Female Surgeries/Procedures: only has left ovary remaining Endocrine Surgical History: Reports: None Neurological Surgical History: Reports: None Musculoskeletal Surgical History: Reports: None Oncologic Surgical History: Reports: None Dermatological Surgical History: Reports: None Social & Family History - Family History Family Medical History: No Pertinent Family History - Caffeine Use Caffeine Use: Reports: Coffee - Living Situation & Occupation Living situation: Reports: (to her , lives in [place] by [employer] They are raising children together) ED ROS GENERAL - Review of Systems Review Of Systems: Unable To Obtain Reason Not Obtained: Patient eloped prior to evaluation ED EXAM, GENERAL - Physical Exam Exam: Not Obtained Reason Not Obtained: Patient eloped prior to evaluation Departure - Departure Time of Disposition: 16:24 Disposition: Eloped 07 Clinical Impression: Eloped from emergency department - Discharge Information Referrals: PCP,None [Primary Care Provider] - Forms: ED Department Discharge
== END 2021-01-30 16:30 | disposition left against medical advice (07) ==
LOC: JP.ED 15:30
DX: Z53.21 Procedure and treatment not carried out due to patient leaving prior to being seen by health care provider (principal); K21.9 Gastro-esophageal reflux disease without esophagitis; G43.909 Migraine, unspecified, not intractable, without status migrainosus; E66.9 Obesity, unspecified; Z88.5 Allergy status to narcotic agent; Z88.8 Allergy status to other drugs, medicaments and biological substances; Z88.2 Allergy status to sulfonamides; Z79.899 Other long term (current) drug therapy

== ENCOUNTER 2021-06-20 20:06 | Emergency (ER) | payer MEDICAID ==
[2021-06-20 20:29] VITALS: BP 120/82; PULSE 97
[2021-06-20] MEDS ORDERED: Sodium Chloride 0.9% 1,000 ML IV SCH (21:00)
--- NOTE | 2021-06-20 21:53 | EDM.PDOC ---
ED HPI GENERAL MEDICAL PROBLEM - General Chief Complaint: Genitourinary Problem Stated Complaint: HEAVY PERIOD BLEEDING, SLEEP ISSUES Time Seen by Provider: 06/20/21 20:19 Source of Information: Reports: Patient, RN History Limitations: Reports: No Limitations - History of Present Illness INITIAL COMMENTS - FREE TEXT/NARRATIVE: chief complaint: vaginal bleeding x 2 day in present of hysterectomy 3 years ago. This is a 35 year old female present to ER with family with multi concerns related to her health. Vaginal bleeding- reports vaginal red blood with wiping after bathroom, denies any clots, reports pelvic and low back pain Chills- chills for the past few days chest- shortness of breath for one year- reports smokes Meth- daily for 4 months- > 1 year., tobacco use for years stomach pain- has hx of reflux pelvic- pain off and on for years, more intense pain the past two days. hx of childbirth x 2- children age 15 yrs and 5 yrs. hysterectomy 2019. ovaries also removed. musculoskeletal- low back, hips, and generalized pain for years, worse the past two days headache- currently has a headache- but has headache for years. Drug use- has used daily for 4 months, meth.- smokes, tried IV once, denies use of other drugs. weight loss of 45 pounds in the past 4 months. not sleeping well due to drug use and homelessness Homeless- lives with relatives Onset: Gradual Duration: Day(s): (reports more intense symptoms the past two days), Getting Worse Location: Reports: Generalized Quality: Reports: Ache Severity: Mild Improves with: Reports: None Worsens with: Reports: None Associated Symptoms: Reports: Fever/Chills (chills without fever), Headaches, Loss of Appetite, Malaise, Nausea/Vomiting (nausea without vomiting), Shortness of Breath (for one years) - Related Data Allergies Allergy/AdvReac Type Severity Reaction Status Date / Time tramadol Allergy Severe Seizure Verified 06/20/21 22:36 eszopiclone [From Lunesta] Allergy Hives Verified 06/20/21 22:36 Sulfa (Sulfonamide Allergy Nausea and Verified 06/20/21 22:36 Antibiotics) Vomiting Home Meds: Home Meds Melatonin 5 mg PO BEDTIME 11/30/17 [History] Omeprazole 40 mg PO BID 04/16/18 [History] Fluticasone Propionate [Flonase] 2 spray DRISS DAILY PRN 05/12/18 [History] SUMAtriptan [Imitrex] 50 mg PO ASDIRECTED PRN 05/12/18 [History] traZODone 75 mg PO BEDTIME 05/14/20 [History] [place]-3/DHA/Epa/Fish Oil [Fish Oil 1,000 mg Softgel] 1 each PO DAILY 08/22/20 [History] ondansetron HCL [Zofran] 4 mg PO Q6H PRN 08/22/20 [History] Metoclopramide HCl [Reglan] 10 mg PO Q8HR PRN #10 tablet 09/05/20 [Rx] Albuterol Sulfate [Albuterol Sulfate Hfa] 2 inhalation IH Q4HR 10/21/20 [History] diazePAM [Valium] 1 mg PO BID 2 Days #4 tab 10/24/20 [Rx] Past Medical History - Past Health History Medical/Surgical History: Denies Medical/Surgical History HEENT History: Reports: Otitis Media Cardiovascular History: Reports: None Respiratory History: Reports: SOB Gastrointestinal History: Reports: Cholelithiasis, GERD, Hiatal Hernia Genitourinary History: Reports: UTI, Recurrent, Other (See Below) Other Genitourinary History: lap ophorectomy 09/25/20 HEEL CURVER History: Reports: Endometriosis, , Spontaneous Musculoskeletal History: Reports: Fracture Other Musculoskeletal History: Toe finger Neurological History: Reports: Concussion, Headaches, Chronic, Migraines, Seizure Psychiatric History: Reports: ADD, Anxiety, Bipolar, Depression, Psych Hospitalization(s), PTSD, Suicide Attempt, Other (See Below) Other 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 Endocrine/Metabolic History: Reports: Obesity/BMI 30+ Hematologic History: Reports: None Immunologic History: Reports: None Oncologic (Cancer) History: Reports: None Dermatologic History: Reports: None - Infectious Disease History Infectious Disease History: Reports: Chicken Pox - Past Surgical History Head Surgeries/Procedures: Reports: None HEENT Surgical History: Reports: Other (See Below) Other HEENT Surgeries/Procedures: ear tubes as a child GI Surgical History: Reports: Cholecystectomy, EGD, Matthew Fundoplication Female Surgical History: Reports: Hysterectomy, Oophorectomy, Salpingo- Oophorectomy, Other (See Below) Endocrine Surgical History: Reports: None Oncologic Surgical History: Reports: None Social & Family History - Family History Family Medical History: No Pertinent Family History - Tobacco Use Tobacco Use Status *Q: Light Tobacco User Years of Tobacco use: 25 Packs/Tins Daily: 0.5 Used Tobacco, but Quit: No Second Hand Smoke Exposure: No - Caffeine Use Caffeine Use: Reports: None - Recreational Drug Use Recreational Drug Use: Yes Drug Use in Last 12 Months: Yes Recreational Drug Type: Reports: Methamphetamine Recreational Drug Use Frequency: Daily - Living Situation & Occupation Living situation: Reports: (to her , lives in [place] by [employer]. They are raising children together update: removed her from the home, she is now homeless, children with relatives) ED ROS GENERAL - Review of Systems Review Of Systems: See Below Constitutional: Reports: Chills, Malaise, Fatigue, Decreased Appetite, Weight Loss (45 pounds in 4 months) HEENT: Reports: No Symptoms Respiratory: Reports: Shortness of Breath (for more than one years), Cough Cardiovascular: Reports: No Symptoms Endocrine: Reports: No Symptoms GI/Abdominal: Reports: Abdominal Pain (low abdominal pain x 2 days), Decreased Appetite, Nausea : Reports: Flank Pain, Other (reports vaginal bleeding) Musculoskeletal: Reports: Back Pain (years), Muscle Pain (generalized) Skin: Reports: No Symptoms Neurological: Reports: No Symptoms Psychiatric: Reports: Anxiety (tearful) Hematologic/Lymphatic: Reports: No Symptoms Immunologic: Reports: No Symptoms ED EXAM, GI/ABD - Physical Exam Exam: See Below Exam Limited By: No Limitations General Appearance: Alert, WD/WN, No Apparent Distress, Anxious, Thin Eyes: Bilateral: Normal Appearance Ears: Normal External Exam, Normal Canal, Hearing Grossly Normal, Normal TMs Nose: Normal Inspection, Normal Mucosa, No Blood Throat/Mouth: Normal Inspection, Normal Lips, Normal Teeth, Normal Gums, Normal Oropharynx, Normal Voice, No Airway Compromise Head: Atraumatic, Normocephalic Neck: Normal Inspection, Supple, Non-Tender, Full Range of Motion Respiratory/Chest: No Respiratory Distress, Lungs Clear, Normal Breath Sounds, No Accessory Muscle Use, Chest Non-Tender Cardiovascular: Normal Peripheral Pulses, Regular Rate, Rhythm, No Edema, No Gallop, No JVD, No Murmur, No Rub GI/Abdominal Exam: Normal Bowel Sounds, Soft, Pelvis Stable, Tender (pelvis) (Female) Exam: Normal Speculum Exam, Normal Bimanual Exam, Vaginal Discharge (verduzco thin discharge, no odor), Other (no bloody or red discharge is noted in the vaginal vault.) Rectal (Female) Exam: Normal Exam, Deferred Back Exam: Normal Inspection, Other (pain with palpation of low back) Extremities: Normal Inspection, Normal Range of Motion, Non-Tender, No Pedal Edema, Normal Capillary Refill Neurological: Alert, Oriented, CN II-XII Intact, Normal Cognition, Normal Gait, No Motor/Sensory Deficits Psychiatric: Anxious, Tearful Skin Exam: Warm, Dry, Intact, Normal Color, No Rash Lymphatic: No Adenopathy Course - Vital Signs Last Recorded V/S: Last Vital Signs Temp 97 F 06/20/21 20:33 Pulse 97 06/20/21 20:33 Resp 18 06/20/21 20:33 BP 120/82 06/20/21 20:33 Pulse Ox 99 06/20/21 20:33 - Orders/Labs/Meds Orders: Active Orders 24 hr Category Date Time Status CHLAMYDIA/GC AMPLIFICATION Urgent Lab 06/20/21 21:04 Received Sodium Chloride 0.9% [Normal Saline] 1,000 ml Med 06/20/21 21:00 Active IV ASDIRECTED Medication Orders Sodium Chloride (Normal Saline) 1,000 mls @ 999 mls/hr IV ASDIRECTED TAYLOR Last Admin: 06/20/21 21:29 Dose: 999 mls/hr Documented by: JEROME Labs: Laboratory Tests 06/20/21 06/20/21 06/20/21 Range/Units 20:33 20:33 22:30 WBC 7.6 (4.5-11.0) K/uL RBC 5.55 H (3.30-5.50) M/uL Hgb 15.4 H (12.0-15.0) g/dL Hct 46.8 (36.0-48.0) % MCV 84 (80-98) fL MCH 28 (27-31) pg MCHC 33 (32-36) % Plt Count 283 (150-400) K/uL Neut % (Auto) 45.9 (36-66) % Lymph % (Auto) 43.2 (24-44) % Pratt % (Auto) 8.8 H (2-6) % Eos % (Auto) 1.2 L (2-4) % Baso % (Auto) 0.9 (0-1) % Sodium 149 H (140-148) mmol/L Potassium 3.9 (3.6-5.2) mmol/L Chloride 109 H (100-108) mmol/L Carbon Dioxide 31 (21-32) mmol/L Anion Gap 12.9 (5.0-14.0) mmol/L BUN 21 H (7-18) mg/dL Creatinine 1.0 (0.6-1.0) mg/dL Est Cr Clr Drug Dosing 62.10 mL/min Estimated GFR (MDRD) > 60 (>60) Glucose 85 (74-106) mg/dL Calcium 9.4 (8.5-10.1) mg/dL Urine Color Yellow (YELLOW) Urine Appearance Cloudy A (CLEAR) Urine pH 8.0 (5.0-8.0) Ur Specific [place] 1.020 (1.008-1.030) Urine Protein Trace H (NEGATIVE) mg/dL Urine Glucose (UA) Negative (NEGATIVE) mg/dL Urine Ketones Negative (NEGATIVE) mg/dL Urine Occult Blood Small H (NEGATIVE) Urine Nitrite Negative (NEGATIVE) Urine Bilirubin Negative (NEGATIVE) Urine Urobilinogen 0.2 (0.2-1.0) EU/dL Ur Leukocyte Esterase Large H (NEGATIVE) Urine RBC 0-5 (0-5) Urine WBC 75-100 H (0-5) Ur Epithelial Cells Few Amorphous Sediment Few Urine Bacteria Moderate Urine Mucus Not seen Urine Opiates Screen (NEGATIVE) Ur Oxycodone Screen (NEGATIVE) Urine Methadone Screen (NEGATIVE) Ur Propoxyphene Screen (NEGATIVE) Ur Barbiturates Screen (NEGATIVE) Ur Tricyclics Screen (NEGATIVE) Ur Phencyclidine Scrn (NEGATIVE) Ur Amphetamine Screen (NEGATIVE) U Methamphetamines Scrn (NEGATIVE) Urine MDMA Screen (NEGATIVE) U Benzodiazepines Scrn (NEGATIVE) U Cocaine Metab Screen (NEGATIVE) U Marijuana (THC) Screen (NEGATIVE) 06/20/21 Range/Units 22:30 WBC (4.5-11.0) K/uL RBC (3.30-5.50) M/uL Hgb (12.0-15.0) g/dL Hct (36.0-48.0) % MCV (80-98) fL MCH (27-31) pg MCHC (32-36) % Plt Count (150-400) K/uL Neut % (Auto) (36-66) % Lymph % (Auto) (24-44) % Pratt % (Auto) (2-6) % Eos % (Auto) (2-4) % Baso % (Auto) (0-1) % Sodium (140-148) mmol/L Potassium (3.6-5.2) mmol/L Chloride (100-108) mmol/L Carbon Dioxide (21-32) mmol/L Anion Gap (5.0-14.0) mmol/L BUN (7-18) mg/dL Creatinine (0.6-1.0) mg/dL Est Cr Clr Drug Dosing mL/min Estimated GFR (MDRD) (>60) Glucose (74-106) mg/dL Calcium (8.5-10.1) mg/dL Urine Color (YELLOW) Urine Appearance (CLEAR) Urine pH (5.0-8.0) Ur Specific [place] (1.008-1.030) Urine Protein (NEGATIVE) mg/dL Urine Glucose (UA) (NEGATIVE) mg/dL Urine Ketones (NEGATIVE) mg/dL Urine Occult Blood (NEGATIVE) Urine Nitrite (NEGATIVE) Urine Bilirubin (NEGATIVE) Urine Urobilinogen (0.2-1.0) EU/dL Ur Leukocyte Esterase (NEGATIVE) Urine RBC (0-5) Urine WBC (0-5) Ur Epithelial Cells Amorphous Sediment Urine Bacteria Urine Mucus Urine Opiates Screen Negative (NEGATIVE) Ur Oxycodone Screen Negative (NEGATIVE) Urine Methadone Screen Negative (NEGATIVE) Ur Propoxyphene Screen Negative (NEGATIVE) Ur Barbiturates Screen Negative (NEGATIVE) Ur Tricyclics Screen Negative (NEGATIVE) Ur Phencyclidine Scrn Negative (NEGATIVE) Ur Amphetamine Screen Presumptive positive H (NEGATIVE) U Methamphetamines Scrn Presumptive positive H (NEGATIVE) Urine MDMA Screen Negative (NEGATIVE) U Benzodiazepines Scrn Presumptive positive H (NEGATIVE) U Cocaine Metab Screen Negative (NEGATIVE) U Marijuana (THC) Screen Negative (NEGATIVE) Meds: Medications Generic Name Dose Route Start Last Admin Trade Name Freq PRN Reason Stop Dose Admin Sodium Chloride 1,000 mls @ 999 mls/hr 06/20/21 21:00 06/20/21 21:29 Normal Saline IV 999 mls/hr ASDIRECTED TAYLOR Administration Discontinued Medications Generic Name Dose Route Start Last Admin Trade Name Carlos Enrique PRN Reason Stop Dose Admin Ceftriaxone Sodium 1 gm/ 50 mls @ 100 mls/hr 06/20/21 22:39 06/20/21 22:47 Sodium Chloride IV 06/20/21 23:08 100 mls/hr ONETIME ONE Administration Ondansetron HCl 4 mg 06/20/21 23:06 Ondansetron 4 Mg Tab.Dis PO 06/20/21 23:07 ONETIME ONE - Re-Assessments/Exams Free Text/Narrative Re-Assessment/Exam: 06/20/21 22:03 discussed with Ms. Tran will evaluate for any acute infections. CBC - no acute changes hgb 15.5, WBC 7.6, BMP no acute changes testing for STI- wet prep 2+ WBC, no clue cells, FANNY negative, chlamydia and GC pending urine with micro pending urine hcg pending urine drug screen pending Medications- IV Normal Saline 1 liter 06/20/21 22:07 vaginal FANNY is negative 06/20/21 22:46 urine sample - dark, cloudy offer Toradol for pain- declines will give Rocephin 1 gram IV once discharge to home with prescription for Keflex 500 mg po bid x 7 days 06/20/21 23:03 patient felt nausea and unwell after half of Rocephin will stop Rocephin add Zofran 4 mg odt once will give prescription for Levaquin one daily for 7 days Departure - Departure Time of Disposition: 22:59 Disposition: Home, Self-Care 01 Condition: Good Clinical Impression: UTI, Urinary tract infectious disease, Screening examination for STD (sexually transmitted disease), Methamphetamine addiction - Discharge Information *PRESCRIPTION DRUG MONITORING PROGRAM REVIEWED*: Not Applicable *COPY OF PRESCRIPTION DRUG MONITORING REPORT IN PATIENT BUSHRA: Not Applicable Instructions: Urinary Tract Infection, Adult, [id number] Referrals: PCP,None [Primary Care Provider] - Forms: ED Department Discharge Care Plan Goals: Urinary Tract Infection -Rocephin 1 gram IV once -IV Normal Saline one liter -prescription to start tomorrow- Levaquin 500 mg po in morning and evening for 7 days -screening for STI pending -follow up in Primary Care Clinic for complete physical examination and routine care -return to ER for any fever, chills, nausea, vomiting, or not improved Sepsis Event Note (ED) - Evaluation Sepsis Screening Result: No Definite Risk - Focused Exam Vital Signs: Vital Signs Temp Pulse Resp BP Pulse Ox 06/20/21 20:33 97 F 97 18 120/82 99 06/20/21 20:26 97 F 97 18 120/82 99 - Problem List & Annotations (1) Urinary tract infection SNOMED Code(s): 19126675 Code(s): N39.0 - URINARY TRACT INFECTION, SITE NOT SPECIFIED Status: Acute Priority: High Current Visit: Yes Qualifiers: Urinary tract infection type: acute cystitis Hematuria presence: with hematuria Qualified Code(s): N30.01 - Acute cystitis with hematuria (2) Screening examination for STD (sexually transmitted disease) Status: Acute Priority: High Current Visit: Yes (3) Methamphetamine addiction SNOMED Code(s): 072058168, 349261002 Code(s): F15.20 - OTHER STIMULANT DEPENDENCE, UNCOMPLICATED Status: Acute Priority: High Current Visit: Yes (4) Medication adverse effect SNOMED Code(s): 27994356 Code(s): T50.905A - ADVERSE EFFECT OF UNSP DRUG/MEDS/BIOL SUBST, INIT Status: Acute Priority: High Current Visit: Yes Qualifiers: Encounter type: initial encounter Qualified Code(s): T50.905A - Adverse effect of unspecified drugs, medicaments and biological substances, initial encounter - Problem List Review Problem List Initiated/Reviewed/Updated: Yes - My Orders Last 24 Hours: My Active Orders 06/20/21 21:00 Sodium Chloride 0.9% [Normal Saline] 1,000 ml IV ASDIRECTED 06/20/21 21:04 CHLAMYDIA/GC AMPLIFICATION Urgent - Assessment/Plan Last 24 Hours: My Active Orders 06/20/21 21:00 Sodium Chloride 0.9% [Normal Saline] 1,000 ml IV ASDIRECTED 06/20/21 21:04 CHLAMYDIA/GC AMPLIFICATION Urgent Plan: Urinary Tract Infection -Rocephin 1 gram IV once -IV Normal Saline one liter -prescription to start tomorrow- Levaquin 500 mg po in morning and evening for 7 days -screening for STI pending -push fluids- 8 glasses of water per day -take Tylenol or Motrin for pain or fever -follow up in Primary Care Clinic for complete physical examination and routine care -return to ER for any fever, chills, nausea, vomiting, or not improved Drug use -advised to stop use of Meth -seek treatment Medication reaction- Rocephin- nausea and not feeling well. no rash
[2021-06-20] MEDS ORDERED: cefTRIAXone 1 GM in Sodium Chloride 0.9% 50 ML IV ONE (22:39)
[2021-06-20] MEDS ORDERED: Ondansetron 4 MG Tab.DIS PO ONE (23:06)
[2021-06-24 13:10] LABS: CHLAMYDIA TRACHOMATIS, NAA Negative (Negative); NEISSERIA GONORRHOEAE, NAA Positive (Negative)
== END 2021-06-20 23:35 | disposition home or self-care (01) ==
LOC: JP.ED 20:06
DX: N39.0 Urinary tract infection, site not specified (principal); F15.20 Other stimulant dependence, uncomplicated; K21.9 Gastro-esophageal reflux disease without esophagitis; E66.9 Obesity, unspecified; Z72.0 Tobacco use; Z90.710 Acquired absence of both cervix and uterus; Z88.2 Allergy status to sulfonamides; Z88.5 Allergy status to narcotic agent; Z88.8 Allergy status to other drugs, medicaments and biological substances; Z79.899 Other long term (current) drug therapy; Z68.30 Body mass index [BMI] 30.0-30.9, adult; Z11.3 Encounter for screening for infections with a predominantly sexual mode of transmission
CPT/HCPCS: 36415; 80048; 80305; 81001; 85025; 87086; 87088; 87186; 87210; 87491; 87591; 96365; 99284; A9270; J0696; J7030

== ENCOUNTER 2021-06-25 17:50 | Emergency (ER) | payer MEDICAID ==
[2021-06-25 18:10] VITALS: BP 113/82; PULSE 99
[2021-06-25] MEDS ORDERED: Alum Hydrox/Mag Hydrox/Simeth 15 ML, Lidocaine 2% 15 ML PO ONE ×2 (18:25)
[2021-06-25] MEDS ORDERED: Ondansetron 4 MG Tab.DIS PO ONE (18:25)
[2021-06-25] MEDS ORDERED: Acetaminophen 500 MG Tab PO ONE (18:26)
--- NOTE | 2021-06-25 18:32 | EDM.PDOC ---
ED HPI GENERAL MEDICAL PROBLEM - General Chief Complaint: Abdominal Pain Stated Complaint: VOMITING BLOOD Time Seen by Provider: 06/25/21 18:20 Source of Information: Reports: Patient History Limitations: Reports: No Limitations - History of Present Illness INITIAL COMMENTS - FREE TEXT/NARRATIVE: 35 yo frequent user of our ER who admits to regular meth use(last 2 d ago0 presents with one emesis about 90 min ago associated with a small amt of blood in the emesis. Has some abdominal pain since. She was constipated, but took a laxative with results. Does not want blood work if possible as she hates needles. Admits to regular use of ibuprofen. Onset: Today Onset Date: 06/25/21 Duration: Hour(s):, Waxing/Waning Location: Reports: Abdomen Quality: Reports: Ache Severity: Mild Improves with: Reports: None Worsens with: Reports: Other (unknown) Context: Reports: Other (See HPI) Associated Symptoms: Reports: Nausea/Vomiting (once) Treatments BUSINESS PLANNING DIRECTOR: Reports: Other (see below) (none) Abdomen Pain Score (Numeric/FACES): 6 - Related Data Allergies Allergy/AdvReac Type Severity Reaction Status Date / Time tramadol Allergy Severe Seizure Verified 06/25/21 18:11 eszopiclone [From Lunesta] Allergy Hives Verified 06/25/21 18:11 Sulfa (Sulfonamide Allergy Nausea and Verified 06/25/21 18:11 Antibiotics) Vomiting Home Meds: Home Meds Melatonin 5 mg PO BEDTIME 11/30/17 [History] Omeprazole 40 mg PO BID 04/16/18 [History] Fluticasone Propionate [Flonase] 2 spray DRISS DAILY PRN 05/12/18 [History] SUMAtriptan [Imitrex] 50 mg PO ASDIRECTED PRN 05/12/18 [History] traZODone 75 mg PO BEDTIME 05/14/20 [History] [place]-3/DHA/Epa/Fish Oil [Fish Oil 1,000 mg Softgel] 1 each PO DAILY 08/22/20 [History] ondansetron HCL [Zofran] 4 mg PO Q6H PRN 08/22/20 [History] Metoclopramide HCl [Reglan] 10 mg PO Q8HR PRN #10 tablet 09/05/20 [Rx] Albuterol Sulfate [Albuterol Sulfate Hfa] 2 inhalation IH Q4HR 10/21/20 [History] diazePAM [Valium] 1 mg PO BID 2 Days #4 tab 10/24/20 [Rx] Past Medical History - Past Health History Medical/Surgical History: Denies Medical/Surgical History HEENT History: Reports: Otitis Media Cardiovascular History: Reports: None Respiratory History: Reports: SOB Gastrointestinal History: Reports: Cholelithiasis, GERD, Hiatal Hernia Genitourinary History: Reports: UTI, Recurrent, Other (See Below) Other Genitourinary History: lap ophorectomy 09/25/20 [employer]AT CAPTAIN History: Reports: Endometriosis, , Spontaneous Musculoskeletal History: Reports: Fracture Other Musculoskeletal History: Toe finger Neurological History: Reports: Concussion, Headaches, Chronic, Migraines, Seizure Psychiatric History: Reports: ADD, Anxiety, Bipolar, Depression, Psych Hospitalization(s), PTSD, Suicide Attempt, Other (See Below) Other 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 Endocrine/Metabolic History: Reports: Obesity/BMI 30+ Hematologic History: Reports: None Immunologic History: Reports: None Oncologic (Cancer) History: Reports: None Dermatologic History: Reports: None - Infectious Disease History Infectious Disease History: Reports: Chicken Pox - Past Surgical History Head Surgeries/Procedures: Reports: None HEENT Surgical History: Reports: Other (See Below) Other HEENT Surgeries/Procedures: ear tubes as a child Respiratory Surgical History: Reports: None GI Surgical History: Reports: Cholecystectomy, EGD, Matthew Fundoplication Female Surgical History: Reports: Hysterectomy, Oophorectomy, Salpingo- Oophorectomy, Other (See Below) Other Female Surgeries/Procedures: only has left ovary remaining Endocrine Surgical History: Reports: None Neurological Surgical History: Reports: None Musculoskeletal Surgical History: Reports: None Oncologic Surgical History: Reports: None Dermatological Surgical History: Reports: None Social & Family History - Family History Family Medical History: No Pertinent Family History - Tobacco Use Tobacco Use Status *Q: Current Every Day Tobacco User Years of Tobacco use: 23 Packs/Tins Daily: 1 - Caffeine Use Caffeine Use: Reports: None - Recreational Drug Use Recreational Drug Use: Yes Recreational Drug Type: Reports: Methamphetamine - Living Situation & Occupation Living situation: Reports: (to her , lives in [place] by [employer]. They are raising children together update: removed her from the home, she is now homeless, children with relatives) ED ROS GENERAL - Review of Systems Review Of Systems: See Below Constitutional: Reports: No Symptoms HEENT: Reports: No Symptoms Respiratory: Reports: No Symptoms Cardiovascular: Reports: No Symptoms GI/Abdominal: Reports: Abdominal Pain, Constipation, Nausea, Vomiting (x one). Denies: Black Stool, Bloody Stool, Diarrhea : Reports: No Symptoms Musculoskeletal: Reports: No Symptoms Skin: Reports: No Symptoms ED EXAM, GI/ABD - Physical Exam Exam: See Below Exam Limited By: No Limitations General Appearance: Alert, WD/WN, No Apparent Distress Eyes: Bilateral: Normal Appearance Ears: Normal External Exam, Normal Canal, Hearing Grossly Normal Nose: Normal Inspection, No Blood Throat/Mouth: Normal Inspection Head: Atraumatic, Normocephalic Neck: Normal Inspection Respiratory/Chest: No Respiratory Distress, Lungs Clear, Normal Breath Sounds, No Accessory Muscle Use Cardiovascular: Regular Rate, Rhythm, No Edema. No: Tachycardia GI/Abdominal Exam: Normal Bowel Sounds, Soft, No Distention, Tender (L sided and lower). No: Non-Tender, Distended, Guarding, Rigid, Rebound, Abnormal Bowel Sounds Back Exam: Normal Inspection. No: CVA Tenderness (R), CVA Tenderness (L) Extremities: Normal Inspection, Normal Range of Motion, Non-Tender, No Pedal Edema Neurological: Alert, Oriented, CN II-XII Intact, Normal Cognition, No Motor/Sensory Deficits Psychiatric: Normal Affect, Normal Mood Skin Exam: Warm, Dry, Intact, Normal Color, No Rash Course - Vital Signs Last Recorded V/S: Last Vital Signs Temp 36.7 C 06/25/21 18:10 Pulse 99 06/25/21 18:10 Resp 16 06/25/21 18:10 BP 113/82 06/25/21 18:10 Pulse Ox 100 06/25/21 18:10 - Orders/Labs/Meds Meds: Medications Discontinued Medications Generic Name Dose Route Start Last Admin Trade Name Carlos Enrique PRN Reason Stop Dose Admin Acetaminophen 1,000 mg 06/25/21 18:26 Acetaminophen 500 Mg Tab PO 06/25/21 18:27 ONETIME ONE Al Hydroxide/Mg Hydroxide 15 0 ml 06/25/21 18:25 ml/ Lidocaine HCl 15 ml PO 06/25/21 18:26 ONETIME ONE Ondansetron HCl 4 mg 06/25/21 18:25 Ondansetron 4 Mg Tab.Dis PO 06/25/21 18:26 ONETIME ONE - Re-Assessments/Exams Free Text/Narrative Re-Assessment/Exam: 06/25/21 18:45 Got the meds we offered and immediately wanted to be discharged. Departure - Departure Time of Disposition: 18:46 Disposition: Home, Self-Care 01 Condition: Fair Clinical Impression: Gastritis Qualifiers: Gastritis type: unspecified gastritis Chronicity: acute Gastritis bleeding: with bleeding Qualified Code(s): K29.01 - Acute gastritis with bleeding - Discharge Information *PRESCRIPTION DRUG MONITORING PROGRAM REVIEWED*: Not Applicable *COPY OF PRESCRIPTION DRUG MONITORING REPORT IN PATIENT BUSHRA: Not Applicable Instructions: Gastritis, Adult, [id number] Referrals: PCP,None [Primary Care Provider] - Forms: ED Department Discharge Additional Instructions: Avoid ibuprofen, use acetaminophen for pain relief as needed. Take Maalox 30 ml before meals and at bedtime until your symptoms resolve. Recheck with your provider as needed if your symptoms persist. Sepsis Event Note (ED) - Focused Exam Vital Signs: Vital Signs Temp Pulse Resp BP Pulse Ox 06/25/21 18:10 36.7 C 99 16 113/82 100 06/25/21 18:09 36.7 C 99 16 113/82 100
== END 2021-06-25 18:45 | disposition home or self-care (01) ==
LOC: JP.ED 17:50
DX: K29.01 Acute gastritis with bleeding (principal); K21.9 Gastro-esophageal reflux disease without esophagitis; E66.9 Obesity, unspecified; Z68.22 Body mass index [BMI] 22.0-22.9, adult; Z88.5 Allergy status to narcotic agent; Z88.2 Allergy status to sulfonamides; Z79.899 Other long term (current) drug therapy; Z72.0 Tobacco use
CPT/HCPCS: 99283; A9270

== ENCOUNTER 2021-09-04 23:04 | Emergency (ER) | payer MEDICAID ==
[2021-09-04 23:54] VITALS: BP 130/98; PULSE 108
[2021-09-05] MEDS: Acetaminophen/oxyCODONE 325-5 MG Tab PO ONE (00:40)
[2021-09-05] MEDS: cefTRIAXone 1 GM Vial IM ONE (00:45)
== END 2021-09-05 01:02 | disposition home or self-care (01) ==
LOC: JP.ED 23:04
DX: K04.7 Periapical abscess without sinus (principal); E66.9 Obesity, unspecified; Z68.21 Body mass index [BMI] 21.0-21.9, adult; Z88.2 Allergy status to sulfonamides; Z88.5 Allergy status to narcotic agent; Z72.0 Tobacco use
CPT/HCPCS: 96372; 99283; A9270-GY; J0696

== ENCOUNTER 2022-05-19 04:28 | Emergency (ER) | payer MEDICAID ==
[2022-05-19 04:44] VITALS: BP 127/91; PULSE 97
== END 2022-05-19 08:19 | disposition left against medical advice (07) ==
LOC: JP.ED 04:28
DX: F15.10 Other stimulant abuse, uncomplicated (principal); F17.210 Nicotine dependence, cigarettes, uncomplicated; E66.9 Obesity, unspecified; Z68.1 Body mass index [BMI] 19.9 or less, adult; Z88.2 Allergy status to sulfonamides; Z88.5 Allergy status to narcotic agent; Z88.8 Allergy status to other drugs, medicaments and biological substances; Z20.822 Contact with and (suspected) exposure to COVID-19
CPT/HCPCS: 36415; 80305-QW; 80307; 81001; 81025; 99283; U0002

== ENCOUNTER 2022-12-12 16:05 | Emergency (ER) | payer MEDICAID | END 2022-12-12 16:50 | disposition left against medical advice (07) | LOC: JP.ED 16:05 | DX: Z53.21 Procedure and treatment not carried out due to patient leaving prior to being seen by health care provider (principal) ==

== ENCOUNTER 2022-12-12 22:05 | Emergency (ER) | payer MEDICAID ==
[2022-12-12 22:37] LABS: APPEARANCE,URINE CLEAR (CLEAR); BILIRUBIN,URINE NEGATIVE (NEGATIVE); COLOR,URINE YELLOW (YELLOW); GLUCOSE,URINE NEGATIVE (NEGATIVE); KETONES,URINE NEGATIVE (NEGATIVE); LEUKOCYTE ESTERASE,URINE NEGATIVE (NEGATIVE); NITRITE,URINE NEGATIVE (NEGATIVE); OCCULT BLOOD,URINE NEGATIVE (NEGATIVE); PH,URINE 5.5 (5.0-8.0); PROTEIN,URINE NEGATIVE (NEGATIVE); UROBILINOGEN,URINE 0.2 EU/dL (0.2-1.0)
[2022-12-12 22:41] LABS: AMORPHOUS SEDIMENT,URINE NOT SEEN; BACTERIA,URINE FEW; EPITHELIAL CELLS,URINE RARE; MUCUS,URINE NOT SEEN; RBC,URINE 0-5 (0-5); WBC,URINE 0-5 (0-5)
[2022-12-12 22:42] LABS: AMPHETAMINES SCREEN, URINE PRESUMPTIVE POSITIVE (NEGATIVE); BARBITURATE SCREEN,URINE NEGATIVE (NEGATIVE); BENZODIAZEPINES SCREEN,URINE NEGATIVE (NEGATIVE); METHADONE SCREEN, URINE NEGATIVE (NEGATIVE); METHAMPHETAMINES SCREEN, URINE PRESUMPTIVE POSITIVE (NEGATIVE); OXYCODONE SCREEN,URINE NEGATIVE (NEGATIVE); PROPOXYPHENE SCREEN,URINE NEGATIVE (NEGATIVE); THC SCREEN,URINE 50 NG/ML PRESUMPTIVE POSITIVE (NEGATIVE)
[2022-12-12 23:24] LABS: BASOPHILS ABSOLUTE AUTO 0.08 K/uL (0.00-0.10); BASOPHILS PERCENT AUTO 0.8 % (0.1-1.3); EOSINOPHILS ABSOLUTE AUTO 0.12 K/uL (0.00-0.40); EOSINOPHILS PERCENT AUTO 1.2 % (0.0-5.4); HEMATOCRIT 37.4 % (34.3-46.0); HEMOGLOBIN 12.4 g/dL (11.2-15.5); IMMATURE GRAN ABSOLUTE AUTO 0.03 K/uL (0.00-0.23); IMMATURE GRAN PERCENT AUTO 0.3 % (0.0-0.7); LYMPHOCYTES ABSOLUTE AUTO 3.49 K/uL (0.8-3.3); LYMPHOCYTES PERCENT AUTO 36.1 % (11.4-47.7); MEAN CORPUSCULAR HEMOGLOBIN 28.7 pg (31.6-35.5); MEAN CORPUSCULAR HGB CONC 33.2 g/dL (31.6-35.5); MEAN CORPUSCULAR VOLUME 86.6 fL (81.4-99.0); MONOCYTES ABSOLUTE AUTO 0.83 K/uL (0.20-0.90); MONOCYTES PERCENT AUTO 8.6 % (3.3-12.6); NEUTROPHILS ABSOLUTE AUTO 5.13 K/uL (1.0-7.6); PLATELET COUNT,PLT 280 K/uL (130-375); RED BLOOD CELL COUNT 4.32 M/uL (3.77-5.24); WHITE BLOOD CELL COUNT,WBC 9.7 K/uL (3.2-11.0)
[2022-12-12 23:50] LABS: ALANINE AMINOTRANSFERASE,ALT 39 U/L (12-78); ALBUMIN 3.2 g/dL (3.4-5.0); ALKALINE PHOSPHATASE 109 U/L (46-116); ANION GAP 13.6 mmol/L (5.0-14.0); ASPARTATE AMNIOTRANSFERASE,AST 24 U/L (15-37); BILIRUBIN TOTAL 0.3 mg/dL (0.2-1.0); BLOOD UREA NITROGEN,BUN 27 mg/dL (7-18); CALCIUM 8.6 mg/dL (8.5-10.1); CARBON DIOXIDE,CO2 26 mmol/L (21-32); CHLORIDE,CL 103 mmol/L (100-108); EST CRCL DRUG DOSING (CG) 55.69 mL/min; ESTIMATED GFR 75 mL/min (>60); GLUCOSE RANDOM 141 mg/dL (74-106); POTASSIUM,K 3.6 mmol/L (3.6-5.2); PROTEIN TOTAL,TP 6.4 g/dL (6.4-8.2); SODIUM,NA 139 mmol/L (140-148)
[2022-12-13 05:00] VITALS: BP 102/63; PULSE 78
== END 2022-12-13 10:35 | disposition left against medical advice (07) ==
LOC: JP.ED 22:05
DX: F15.90 Other stimulant use, unspecified, uncomplicated (principal); F12.90 Cannabis use, unspecified, uncomplicated; F60.3 Borderline personality disorder; F31.9 Bipolar disorder, unspecified; Z88.5 Allergy status to narcotic agent; Z88.2 Allergy status to sulfonamides; Z88.8 Allergy status to other drugs, medicaments and biological substances; E66.9 Obesity, unspecified; F17.210 Nicotine dependence, cigarettes, uncomplicated; Z20.822 Contact with and (suspected) exposure to COVID-19; Z68.1 Body mass index [BMI] 19.9 or less, adult
CPT/HCPCS: 36415; 80053; 80305-QW; 80307; 81001; 81025; 82947; 85025; 99284; U0002

== ENCOUNTER 2023-01-05 03:16 | Emergency (ER) | payer MEDICAID ==
[2023-01-05 03:52] VITALS: BP 126/86; PULSE 87
== END 2023-01-05 04:01 | disposition left against medical advice (07) ==
LOC: JP.ED 03:16
DX: F15.10 Other stimulant abuse, uncomplicated (principal); K21.9 Gastro-esophageal reflux disease without esophagitis; E66.9 Obesity, unspecified; Z68.20 Body mass index [BMI] 20.0-20.9, adult; Z88.2 Allergy status to sulfonamides; Z88.5 Allergy status to narcotic agent; Z88.8 Allergy status to other drugs, medicaments and biological substances; Z72.0 Tobacco use
CPT/HCPCS: 99283

== ENCOUNTER 2024-06-11 19:37 | Emergency (ER) | payer MEDICAID ==
[2024-06-11 19:54] VITALS: BP 120/63; PULSE 106
[2024-06-11 21:41] LABS: BASOPHILS ABSOLUTE AUTO 0.07 K/uL (0.00-0.10); BASOPHILS PERCENT AUTO 0.8 % (0.1-1.3); EOSINOPHILS ABSOLUTE AUTO 0.15 K/uL (0.00-0.40); EOSINOPHILS PERCENT AUTO 1.8 % (0.0-5.4); HEMATOCRIT 38.1 % (34.3-46.0); HEMOGLOBIN 12.7 g/dL (11.2-15.5); IMMATURE GRAN PERCENT AUTO 0.2 % (0.0-0.7); LYMPHOCYTES ABSOLUTE AUTO 3.45 K/uL (0.8-3.3); LYMPHOCYTES PERCENT AUTO 40.7 % (11.4-47.7); MEAN CORPUSCULAR HEMOGLOBIN 29.3 pg (31.6-35.5); MEAN CORPUSCULAR HGB CONC 33.3 g/dL (31.6-35.5); MONOCYTES ABSOLUTE AUTO 0.52 K/uL (0.20-0.90); MONOCYTES PERCENT AUTO 6.1 % (3.3-12.6); NEUTROPHILS ABSOLUTE AUTO 4.26 K/uL (1.0-7.6); NEUTROPHILS PERCENT AUTO 50.4 % (40.0-78.1); PLATELET COUNT,PLT 264 K/uL (130-375); RED BLOOD CELL COUNT 4.33 M/uL (3.77-5.24); WHITE BLOOD CELL COUNT,WBC 8.5 K/uL (3.2-11.0)
[2024-06-11 21:42] LABS: IMMATURE GRAN ABSOLUTE AUTO 0.02 K/uL (0.00-0.23)
[2024-06-11 22:00] LABS: ANION GAP 7.4 mmol/L (5.0-14.0); BLOOD UREA NITROGEN,BUN 28 mg/dL (7-18); C-REACTIVE PROTEIN < 0.50 mg/dL (<0.50); CALCIUM 9.5 mg/dL (8.5-10.1); CARBON DIOXIDE,CO2 31 mmol/L (21-32); CHLORIDE,CL 103 mmol/L (100-108); CREATININE 0.9 mg/dL (0.6-1.0); EST CRCL DRUG DOSING (CG) 64.89 mL/min; ESTIMATED GFR 84 mL/min (>60); GLUCOSE RANDOM 100 mg/dL (74-106); POTASSIUM,K 3.9 mmol/L (3.6-5.2); SODIUM,NA 141 mmol/L (140-148)
== END 2024-06-11 23:10 | disposition home or self-care (01) ==
LOC: JP.ED 19:37
DX: J06.9 Acute upper respiratory infection, unspecified (principal); K21.9 Gastro-esophageal reflux disease without esophagitis; E66.9 Obesity, unspecified; Z90.710 Acquired absence of both cervix and uterus; F17.200 Nicotine dependence, unspecified, uncomplicated; Z88.2 Allergy status to sulfonamides; Z88.8 Allergy status to other drugs, medicaments and biological substances
CPT/HCPCS: 36415; 71045; 71045-26; 80048; 83605; 84145; 85025; 86140; 99283; 99285